=== PATIENT | male | born 1950 | race Caucasian/White ===

== ENCOUNTER 2016-12-19 10:57 | Inpatient (IN) ==
[2016-12-19] MEDS ORDERED: Ipratropium/Albuterol Neb 3 ML IH ONE (11:05)
--- NOTE | 2016-12-19 11:08 | Emergency Department Note ---
Disposition Clinical Impression: Bronchospasm Pneumonia Qualifiers: Pneumonia type: due to unspecified organism Laterality: bilateral Lung location : lower lobe of lung Qualified Code(s): J18.9 - Pneumonia, unspecified organism Disposition: Admitted As Inpatient Condition: Fair Referrals: Marcus Westfall MD [Primary Care Provider] - Time of Disposition: 12:09 SOB HPI - General Chief Complaint: ED Shortness of Breath/Dyspnea Stated Complaint: VIELKA Time Seen by Provider: 12/19/16 11:04 Source: patient, family Mode of arrival: ambulatory Limitations: no limitations Nursing Notes Reviewed: Yes Vital Signs Reviewed: Yes - History of Present Illness 66-year-old comes in with increasing shortness of breath difficulty breathing stating that he thinks he has pneumonia. He's been coughing. He was a smoker in the past. Patient has not been diagnosed with COPD. Patient has a productive cough and it hurts when he coughs. Symptoms began about 2 weeks ago and have gotten progressively worse. Pt Subjective Complaint: shortness of breath, cough Onset (ago): week(s) (2) Context: recent illness Severity: moderate Consistency/Duration: constant Improves with: nothing Worsens with: exertion Associated symptoms: Reports: chest pain (With cough), cough, wheezing, sputum production - Related Data Home Medications Medication Instructions Recorded Confirmed GlipiZIDE [Glipizide Xl] 5 mg PO BID 04/23/16 04/23/16 Lisinopril [Zestril] 5 mg PO DAILY 04/23/16 04/23/16 Metformin HCl [Glucophage] 1,000 mg PO BID 04/23/16 04/23/16 Pravastatin Sodium 10 mg PO DAILY 04/23/16 04/23/16 Allergies Allergy/AdvReac Type Severity Reaction Status Date / Time Sulfa (Sulfonamide AdvReac Rash Verified 04/23/16 08:49 Antibiotics) All systems ED: reviewed and negative except as stated. Constitutional: Denies: fever, chills, weakness, weight change Eyes: Denies: eye pain, eye discharge, vision change ENT ED: Denies: ear pain, throat pain, dental pain, hearing loss, epistaxis, congestion, dysphagia Cardiovascular: Reports: chest pain (Cough). Denies: palpitations, dyspnea on exertion, edema, syncope Respiratory: Reports: cough, dyspnea, wheezes. Denies: hemoptysis, stridor Gastrointestinal: Denies: abdominal pain, nausea, vomiting, diarrhea, constipation, hematemesis, melena, hematochezia Genitourinary: Denies: urgency, dysuria, frequency, hematuria Musculoskeletal: Denies: back pain, neck pain, arthralgia, myalgia Integumentary: Denies: rash, abrasion, lesions Neurological: Denies: headache, weakness, numbness, paresthesias, confusion, abnormal gait, vertigo Psychiatric: Denies: anxiety, depression, suicidal thoughts, homicidal thoughts , auditory hallucinations, visual hallucinations Endocrine: Denies: fatigue Hematological/Lymphatic: Denies: easy bleeding, easy bruising Allergic/Immunologic: Denies: facial swelling, urticaria Past Medical History - Past Medical History Medical history: Reports: arthritis, diabetes, GERD, hyperlipidemia, hypertension Psychiatric history: Reports: no psych history - Social History Smoking Status: Former smoker Alcohol use: Reports: none Drug use: Reports: none Physical Exam - General Limitations: no limitations General appearance: alert, in distress - Head Head exam: atraumatic, normocephalic, normal inspection - Eye Eye exam: Present: normal appearance, PERRL, EOMI - ENT ENT exam: normal exam, normal oropharynx, mucous membranes moist - Neck Neck exam: Present: normal inspection, full ROM, trachea midline - Chest Chest inspection: Present: normal inspection, symmetric chest wall rise - Respiratory Respiratory exam: Present: wheezes, prolonged expiratory phase - Cardiovascular Cardiovascular exam: Present: regular rate, normal rhythm, normal heart sounds - Abdominal Exam Abdominal exam: Present: soft, Non-Tender. Absent: tenderness, distention, guarding, rebound, rigidity - Extremities Exam Extremities exam: Present: normal inspection, full ROM. Absent: tenderness, pedal edema - Expanded Lower Extremity Exam Neurovascular/Tendon exam: Absent: motor deficit, sensory deficit, tendon deficit Gait: observed and normal - Back Exam Back exam: Present: normal inspection, full ROM. Absent: tenderness - Neurological Exam Neurological exam: Present: alert, oriented X3 - Psychiatric Psychiatric exam: Present: normal affect, normal mood - Skin Skin exam: Present: warm, dry, intact, normal color Course - Reevaluation(s) Reevaluation #1: 66-year-old comes in with increasing shortness of breath and cough concern for pneumonia. Chest x-ray does show bilateral lower lobe infiltrates which are consistent with a pneumonia based on his clinical presentation. Patient will be admitted for IV antibiotics. Time: 12:09 - Consultations Consultation #1: Discussed with Nevin Cervantes SILO OPERATOR who accepts the patient for admission. Time: 12:17 Vital Signs Temperature 97.9 F 12/19/16 10:59 Pulse Rate 81 12/19/16 10:59 Respiratory Rate 26 12/19/16 10:59 Blood Pressure 182/82 12/19/16 10:59 O2 Sat by Pulse Oximetry 92 12/19/16 10:59 Temperature 97.9 F 12/19/16 10:59 Pulse Rate 78 12/19/16 11:05 Respiratory Rate 18 12/19/16 11:43 Blood Pressure 158/94 12/19/16 11:05 O2 Sat by Pulse Oximetry 99 12/19/16 11:43 Oxygen Delivery Oxygen Delivery Nasal Cannula Shortness of Breath/Dyspnea - Lab Data Lab results reviewed: Yes I reviewed the patient's lab results. Result diagrams: 12/19/16 11:27 12/19/16 11:27 Lab Results 12/19/16 12/19/16 12/19/16 Range/Units 11:27 11:27 11:27 WBC 10.9 (4.3-11.1) K/mcL RBC 3.60 L (4.19-5.50) M/mcL Hgb 11.5 L (12.9-16.9) g/dL Hct 34.4 L (37.5-50.1) % MCV 95.6 (83.0-100.0) fL MCH 31.9 (28.0-33.3) pg MCHC 33.4 (31.6-35.5) g/dL RDW 14.0 (11.5-14.5) % Plt Count 324 (140-400) K/mcL MPV 10.3 (9.4-12.4) fL Immature Gran % 0.6 (0-4) % Seg Neutrophils % 78.4 % Lymphocytes % 12.4 % Monocytes % 7.6 % Eosinophils % 0.8 % Basophils % 0.2 % Neutrophils # 8.6 (1.6-8.9) K/mcL Lymphocytes # 1.4 (0.6-4.6) K/mcL Monocytes # 0.8 (0.0-1.3) K/mcL Eosinophils # 0.1 (0.0-0.6) K/mcL Basophils # 0.0 (0.0-0.2) K/mcL Sodium 141 (136-145) mEq/L Potassium 3.9 (3.5-4.5) mEq/L Chloride 105 (98-109) mEq/L Carbon Dioxide 26 (19-29) mEq/L BUN 14 (8-26) mg/dL Creatinine 0.90 (0.72-1.25) mg/dL Est GFR ( Amer) > 60 (> 60) Est GFR (Non-Af Amer) > 60 (> 60) BUN/Creatinine Ratio 16 (6-26) Glucose 218 H (70-99) mg/dL Calculated Osmolality 299 (280-300) Lactic Acid 1.3 (0.5-2.2) mmol/L Calcium 9.5 (8.6-10.8) mg/dL Troponin I (0-0.03) ng/mL B-Natriuretic Peptide (0-100) pg/mL 12/19/16 12/19/16 Range/Units 11:27 11:27 WBC (4.3-11.1) K/mcL RBC (4.19-5.50) M/mcL Hgb (12.9-16.9) g/dL Hct (37.5-50.1) % MCV (83.0-100.0) fL MCH (28.0-33.3) pg MCHC (31.6-35.5) g/dL RDW (11.5-14.5) % Plt Count (140-400) K/mcL MPV (9.4-12.4) fL Immature Gran % (0-4) % Seg Neutrophils % % Lymphocytes % % Monocytes % % Eosinophils % % Basophils % % Neutrophils # (1.6-8.9) K/mcL Lymphocytes # (0.6-4.6) K/mcL Monocytes # (0.0-1.3) K/mcL Eosinophils # (0.0-0.6) K/mcL Basophils # (0.0-0.2) K/mcL Sodium (136-145) mEq/L Potassium (3.5-4.5) mEq/L Chloride (98-109) mEq/L Carbon Dioxide (19-29) mEq/L BUN (8-26) mg/dL Creatinine (0.72-1.25) mg/dL Est GFR ( Amer) (> 60) Est GFR (Non-Af Amer) (> 60) BUN/Creatinine Ratio (6-26) Glucose (70-99) mg/dL Calculated Osmolality (280-300) Lactic Acid (0.5-2.2) mmol/L Calcium (8.6-10.8) mg/dL Troponin I 0.02 (0-0.03) ng/mL B-Natriuretic Peptide 131 H (0-100) pg/mL - Radiology Data Radiology results reviewed: Yes I reviewed the patient's radiology results. Chest X-Ray 12/19/16 11:05 IMPRESSION: 1. Bilateral lower lobe airspace disease either due to atelectasis or developing pneumonia. Recommend chest radiograph in 8 weeks to confirm resolution. D/ / Michael Chowdhury MD / Michael Chowdhury MD Interpreting Provider: Michael Chowdhury MD - EKG Data EKG attestation: Yes I reviewed and interpreted this EKG. EKG shows normal: Reports: sinus rhythm Rate: Reports: normal Rhythm: Reports: NSR Interpretation: Reports: no acute changes
[2016-12-19 11:39] LABS: Basophils % 0.2 %; Eosinophils # 0.1 K/mcL (0.0-0.6); Eosinophils % 0.8 %; Hematocrit 34.4 % (37.5-50.1); Hemoglobin 11.5 g/dL (12.9-16.9); Immature Granulocytes % 0.6 % (0-4); Lymphocytes # 1.4 K/mcL (0.6-4.6); Lymphocytes % 12.4 %; Mean Corpuscular HGB Conc 33.4 g/dL (31.6-35.5); Mean Corpuscular Hemoglobin 31.9 pg (28.0-33.3); Mean Corpuscular Volume 95.6 fL (83.0-100.0); Mean Platelet Volume 10.3 fL (9.4-12.4); Monocytes # 0.8 K/mcL (0.0-1.3); Monocytes % 7.6 %; Neutrophils # 8.6 K/mcL (1.6-8.9); Platelet Count 324 K/mcL (140-400); Segmented Neutrophils % 78.4 %
[2016-12-19] MEDS ORDERED: Azithromycin 500 MG in D5% in Water 250 ML IVPB ONE (11:50)
[2016-12-19 11:52] LABS: BUN/Creatinine Ratio 16 (6-26); Blood Urea Nitrogen 14 mg/dL (8-26); Calcium 9.5 mg/dL (8.6-10.8); Carbon Dioxide 26 mEq/L (19-29); Chloride 105 mEq/L (98-109); Glucose 218 mg/dL (70-99); Osmolality,Calculated 299 (280-300); Potassium 3.9 mEq/L (3.5-4.5); Sodium 141 mEq/L (136-145); eGFR For African Americans > 60 (> 60); eGFR For Non-African Americans > 60 (> 60)
[2016-12-19] MEDS ORDERED: Naloxone 0.4 MG/ML INJ IVP PRN (12:37)
[2016-12-19] MEDS ORDERED: Acetaminophen 325 MG TABLET PO PRN (12:37)
[2016-12-19] MEDS ORDERED: Albuterol 2.5 MG/3 ML NEBULIZER IH PRN (12:43)
[2016-12-19] MEDS ORDERED: Dextrose Gel 15 GM PO PRN ×2 (13:01)
[2016-12-19] MEDS ORDERED: *HR* Dextrose 50 % in Water (Syg) 50 ML SYRINGE IVP PRN (13:01)
[2016-12-19] MEDS ORDERED: D5% in Water 1,000 ML IVC PRN (13:01)
--- NOTE | 2016-12-19 13:12 | Internal Med History&Physical ---
Date of Encounter: 12/19/16 Time of Encounter: 13:05 Assessment and Plan (1) Pneumonia Current visit: Yes Status: Acute 1 she has been experiencing increasing shortness of breath cough or sputum production no leukocytosis afebrile chest x-ray indicative of pneumonia. We will treat for community-acquired pneumonia Rocephin and Zithromax 2 we will obtain sputum cultures, blood cultures obtained 3 breathing treatments 4 oxygen as needed to maintain SPO2 greater than 92% Qualifiers: Pneumonia type: due to unspecified organism Laterality: bilateral Lung location: lower lobe of lung Qualified Code(s): J18.9 - Pneumonia, unspecified organism (2) Hypertension Current visit: Yes Status: Acute 1 we will continue with lisinopril goals to maintain systolic less than 140 2 low sodium diet Qualifiers: Hypertension type: essential hypertension Qualified Code(s): I10 - Essential (primary) hypertension (3) Diabetes Current visit: Yes Status: Acute 1 Accu-Cheks before meals and at bedtime with signs, insulin we will hold metformin and glyburide for now 2 diabetic diet Qualifiers: Diabetes mellitus type: type 2 Diabetes mellitus complication status: without complication Diabetes mellitus halfway insulin use: 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 Felipe is a 66 year old male past medical history of hypertension hyperlipidemia diabetes rheumatoid arthritis. According to the patient he has been experiencing increasing shortness of breath for the past 3 weeks for the past 2-3 days he has had a productive cough with yellow sputum he denies any fevers chills nausea vomiting diarrhea. He does admit to orthopnea, as well as chest pain while he coughs. He states he has had pneumonia in the past and he felt the symptoms were very similar he presented to the ER for evaluation. According to ER records lab work was unremarkable no leukocytosis lactate was 1.3 chest x-ray revealed bilateral lower lobe airspace disease possibly due to atelectasis or developing pneumonia. Patient was afebrile vital signs were stable on presentation. Patient was given antibiotics and breathing treatments. He is on oxygen 2 L nasal cannula has been A for further workup and evaluation. Bladimir patient does not appear to be in any respiratory distress however he does display conversational dyspnea. Oxygen saturation does drop to 9495% during conversation on 2 L nasal cannula. He does have a audible wheeze lung sounds with scattered rhonchi moist cough. Heart sounds are regular S1-S2 with no rubs clicks gallops murmurs noted abdomen soft nontender no pedal edema. He is hemodynamically stable at this time I reviewed this case with who agree with plan Past Med Surg Social Fam HX - Past Medical History Medical history: arthritis, diabetes, GERD, hyperlipidemia, hypertension Psychiatric history: no psych history - Social History Smoking Status: Former smoker Alcohol use: none Drug use: none - Family History Father Living Status: Cause of : Cancer Mother Living Status: Still Living Hx Family Cardiac Disorders: Yes (Hypertension) Internal Medicine - H&P: Meds GlipiZIDE [Glipizide Xl] 5 mg PO BID 04/23/16 [History] Lisinopril [Zestril] 5 mg PO DAILY 04/23/16 [History] Metformin HCl [Glucophage] 1,000 mg PO BID 04/23/16 [History] Pravastatin Sodium 10 mg PO DAILY 04/23/16 [History] Folic Acid 1 mg PO DAILY 12/19/16 [History] Methotrexate Sodium/PF [Methotrexate 50 mg/2 ml Vial] 50 mg SQ FR 12/19/16 [ History] Allergies Sulfa (Sulfonamide Antibiotics) Allergy (Verified 12/19/16 12:28) Rash All Systems PM: A 10-system review of systems was performed and is negative for pertinent findings except as documented above in the HPI. - Constitutional Constitutional: no chills, no fever(s), no night sweats - EENT Eyes: no change in vision, no discharge, no pain, no photophobia Ears: no ear discharge, no ear pain, no tinnitus Nose, mouth and throat: no dysphagia, no nasal discharge, no neck pain, no sore throat - Cardiovascular Cardiovascular ROS IM: orthopnea, no chest pain, no diaphoresis, no dyspnea, no lightheadedness, no palpitations, no syncope - Respiratory Respiratory: cough, dyspnea on exertion, excessive phlegm production, change in phlegm color, pain with cough, no dyspnea, no wheezing - Gastrointestinal Gastrointestinal: no abdominal pain, no diarrhea, no hematemesis, no hematochezia, no melena, no nausea, no vomiting - Musculoskeletal Musculoskeletal ROS IM: no numbness, no tingling - Integumentary Integumentary IM: no rash, no unusual bruising - Neurological Neurological ROS: no confusion, no convulsions, no focal weakness, no numbness, no tingling, no tremor(s) - Hematologic/Lymphatic Hematologic/Lymphatic: no easy bruising - Constitutional Vitals: Temp Pulse Resp BP Pulse Ox 97.9 F 80 22 147/78 92 12/19/16 10:59 12/19/16 12:33 12/19/16 12:33 12/19/16 12:33 12/19/16 12:33 General appearance: Present: A&O X 3 - Head Head exam: Present: atraumatic, normocephalic - Eye Eye exam: Present: PERRL, conjuntiva pink, sclera anicteric Pupils: Present: PERRL - Neck Neck exam general surgery: Present: supple, trachea midline. Absent: lymphadenopathy - Respiratory Respiratory exam: Present: rhonchi, wheezes. Absent: accessory muscle use, rales - Cardiovascular Cardiovascular exam: Present: RRR, +S1, +S2. Absent: diastolic murmur, gallop, rubs, systolic murmur - GI/Abdominal GI/Abdominal exam: Present: normal bowel sounds, soft, no peritoneal signs. Absent: distended, tenderness - Extremities Exam Extremities exam: Present: warm, radial pulses palpable and symetrical. Absent : calf tenderness, cyanotic, pedal edema - Neurological Exam Neurological exam: Present: CN II-XII intact, oriented X3, no focal deficits. Absent: pronater drift, facial droop, speech deficit - Skin Skin exam: Present: dry, intact Internal Med - H&P Results - Labs CBC & Chem 7: 12/19/16 11:27 12/19/16 11:27 - EKG Data EKG shows normal: sinus rhythm - EKG Data Prior EKG available for review: yes When compared to previous EKG: there is no significant change - Diagnostic Studies Other Images Additional comments: Chest X-Ray 12/19/16 11:05 IMPRESSION: 1. Bilateral lower lobe airspace disease either due to atelectasis or developing pneumonia. Recommend chest radiograph in 8 weeks to confirm resolution. D/ / Michael Chowdhury MD / Michael Chowdhury MD Interpreting Provider: Michael Chowdhury MD
[2016-12-19] MEDS ORDERED: Insulin LISPRO 300 UNITS/3 ML VIAL SQ ONE (14:02)
[2016-12-19] MEDS: Insulin LISPRO 300 UNITS/3 ML VIAL SQ SCH ×2 (14:05→20:44)
[2016-12-19 16:50] LABS: ABG HCO3 29.9 mEQ/L (21-27); ABG Oxygen Saturation 94 % (95-98); ABG PCO2 44 mmHg (35-45); ABG PH 7.44 pH Units (7.32-7.45); ABG PO2 69 mmHg (85-104); ABG TCO2 31.3 mEq/L (20-26)
[2016-12-19 16:51] LABS: Blood Gas FiO2 28 %; Blood Gas Liter Flow 2 L/MIN
[2016-12-19] MEDS: Ipratropium/Albuterol Neb 3 ML IH SCH ×2 (18:30→22:48)
[2016-12-20] MEDS: Ipratropium/Albuterol Neb 3 ML IH SCH ×4 (04:32→23:45)
[2016-12-20 04:58] LABS: Basophils % 0.1 %; Eosinophils # 0.1 K/mcL (0.0-0.6); Hematocrit 32.1 % (37.5-50.1); Hemoglobin 10.4 g/dL (12.9-16.9); Immature Granulocytes % 0.5 % (0-4); Lymphocytes # 2.3 K/mcL (0.6-4.6); Lymphocytes % 18.9 %; Mean Corpuscular HGB Conc 32.4 g/dL (31.6-35.5); Mean Corpuscular Hemoglobin 31.1 pg (28.0-33.3); Mean Corpuscular Volume 96.1 fL (83.0-100.0); Mean Platelet Volume 10.1 fL (9.4-12.4); Monocytes # 0.6 K/mcL (0.0-1.3); Monocytes % 4.7 %; Platelet Count 320 K/mcL (140-400); Red Blood Count 3.34 M/mcL (4.19-5.50); Red Cell Distribution Width 13.9 % (11.5-14.5); Segmented Neutrophils % 74.8 %
[2016-12-20 05:14] LABS: BUN/Creatinine Ratio 15 (6-26); Blood Urea Nitrogen 14 mg/dL (8-26); Carbon Dioxide 26 mEq/L (19-29); Chloride 103 mEq/L (98-109); Glucose 197 mg/dL (70-99); Osmolality,Calculated 290 (280-300); Potassium 4.4 mEq/L (3.5-4.5); Sodium 137 mEq/L (136-145); eGFR For African Americans > 60 (> 60); eGFR For Non-African Americans > 60 (> 60)
[2016-12-20] MEDS: *HR* Enoxaparin 40 MG/0.4 ML SYRINGE SQ SCH (08:40)
[2016-12-20] MEDS: Insulin LISPRO 300 UNITS/3 ML VIAL SQ SCH ×4 (08:40→21:37)
[2016-12-20] MEDS: Azithromycin 500 MG in D5% in Water 250 ML IVPB SCH (09:16)
[2016-12-20] MEDS ORDERED: Ipratropium/Albuterol Neb 3 ML IH PRN (12:32)
--- NOTE | 2016-12-20 12:32 | Internal Med Progress Note ---
Date of Encounter: 12/20/16 Time of Encounter: 12:29 - Subjective Interval history: Patient seen and examined with family present at bedside. Patient reports of feeling better but still noted to have conversational dyspnea. As per daughter, patient has been having shortness of breath for quite some time. Patient reports of being a heavy former smoker, used to smoke 2ppd x 35+years. Patient may have underlying COPD given his smoking history. Will start systemic steroids at this time. Assessment and Plan (1) Acute respiratory failure Current visit: Yes Status: Acute Likely secondary to CAP and COPD exacerbation Patient likely has undiagnosed COPD will continue IV abx start Solumedrol 40mg IV q12h bronchodilator support f/u blood and sputum cultures O2 supplementation as needed (2) Hypertension Current visit: Yes Status: Acute BP within acceptable range continue home meds Qualifiers: Hypertension type: essential hypertension Qualified Code(s): I10 - Essential (primary) hypertension (3) Diabetes Current visit: Yes Status: Acute FS within acceptable range continue ss insulin algorithm monitor FS and BG Qualifiers: Diabetes mellitus type: type 2 Diabetes mellitus complication status: without complication 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 insulin use: without parts counterman use Qualified Code(s): E11.9 - Type 2 diabetes mellitus without complications (4) DVT prophylaxis Current visit: Yes Status: Acute Lovenox SQ - Constitutional Vitals: Temp Pulse Resp BP Pulse Ox 97 F L 86 18 155/72 91 12/20/16 11:19 12/20/16 11:19 12/20/16 11:19 12/20/16 11:19 12/20/16 11:19 General appearance: Present: A&O X 3, pleasant, no acute distress, obese - Head Head exam: Present: atraumatic, normocephalic - Eye Eye exam: Present: normal appearance, conjuntiva pink, sclera anicteric - Respiratory Respiratory exam: Absent: respiratory distress Additional comments: coarse breath sounds bilaterally - Cardiovascular Cardiovascular exam: Present: RRR, +S1, +S2 - GI/Abdominal GI/Abdominal exam: Present: normal bowel sounds, soft, no peritoneal signs. Absent: distended, tenderness - Extremities Exam Extremities exam: Present: warm, radial pulses palpable and symetrical. Absent : calf tenderness, cyanotic, pedal edema - Neurological Exam Neurological exam: Present: alert, oriented X3, no focal deficits - Psychiatric Psychiatric exam: Present: normal affect, normal mood Internal Medicine: Result - Labs CBC & Chem 7: 12/20/16 04:46 12/20/16 04:46 Labs: Short CBC 12/20/16 Range/Units 04:46 WBC 12.0 H (4.3-11.1) K/mcL Hgb 10.4 L (12.9-16.9) g/dL Hct 32.1 L (37.5-50.1) % Plt Count 320 (140-400) K/mcL Neutrophils # 9.0 H (1.6-8.9) K/mcL BMP 12/20/16 04:46 Sodium 137 Potassium 4.4 Chloride 103 Carbon Dioxide 26 BUN 14 Creatinine 0.92 Glucose 197 H Calcium 9.0 Cardiac Enzymes 12/19/16 12/19/16 Range/Units 17:44 23:07 Troponin I 0.02 0.01 (0-0.03) ng/mL - ABG Interpretation ABG results: ABG ABG pH 7.44 pH Units (7.32-7.45) 12/19/16 16:30 ABG pCO2 44 mmHg (35-45) 12/19/16 16:30 ABG pO2 69 mmHg (85-104) L 12/19/16 16:30 ABG O2 Saturation 94 % (95-98) L 12/19/16 16:30 Consult Discharge Plan - Plan
[2016-12-20] MEDS: MethylPREDNISolone 40 MG/ML VIAL IVP SCH ×2 (14:08→18:13)
[2016-12-21] MEDS: Ipratropium/Albuterol Neb 3 ML IH SCH ×4 (04:41→23:03)
[2016-12-21 06:22] LABS: Basophils % 0.1 %; Hematocrit 33.1 % (37.5-50.1); Hemoglobin 10.9 g/dL (12.9-16.9); Immature Granulocytes % 0.8 % (0-4); Lymphocytes # 1.3 K/mcL (0.6-4.6); Lymphocytes % 10.7 %; Mean Corpuscular HGB Conc 32.9 g/dL (31.6-35.5); Mean Corpuscular Hemoglobin 31.1 pg (28.0-33.3); Mean Corpuscular Volume 94.6 fL (83.0-100.0); Mean Platelet Volume 10.5 fL (9.4-12.4); Monocytes # 0.6 K/mcL (0.0-1.3); Monocytes % 4.8 %; Neutrophils # 10.3 K/mcL (1.6-8.9); Platelet Count 353 K/mcL (140-400); Red Cell Distribution Width 13.5 % (11.5-14.5); Segmented Neutrophils % 83.6 %
[2016-12-21 06:32] LABS: BUN/Creatinine Ratio 18 (6-26); Blood Urea Nitrogen 16 mg/dL (8-26); Calcium 9.3 mg/dL (8.6-10.8); Carbon Dioxide 26 mEq/L (19-29); Chloride 105 mEq/L (98-109); Glucose 270 mg/dL (70-99); Magnesium 2.1 mg/dL (1.6-2.6); Osmolality,Calculated 299 (280-300); Phosphorous 3.4 mg/dL (2.3-4.7); Sodium 139 mEq/L (136-145); eGFR For African Americans > 60 (> 60); eGFR For Non-African Americans > 60 (> 60)
[2016-12-21 06:33] LABS: Potassium 4.6 mEq/L (3.5-4.5)
[2016-12-21] MEDS: *HR* Enoxaparin 40 MG/0.4 ML SYRINGE SQ SCH (06:34)
[2016-12-21] MEDS: MethylPREDNISolone 40 MG/ML VIAL IVP SCH ×2 (06:34→16:55)
--- NOTE | 2016-12-21 08:08 | Electrocardiograph Report ---
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
[2016-12-21] MEDS: Insulin LISPRO 300 UNITS/3 ML VIAL SQ SCH ×3 (09:49→16:55)
[2016-12-21] MEDS: Azithromycin 500 MG in D5% in Water 250 ML IVPB SCH (09:49)
--- NOTE | 2016-12-21 11:51 | Internal Med Progress Note ---
Date of Encounter: 12/21/16 Time of Encounter: 11:47 - Subjective Interval history: Patient seen and examined. Reports of feeling better compared to previous day. Noted to have significantly improved respiratory status. Pt does not have conversational dyspnea. Will continue IV steroids for one more day and start Prednisone in am. Assessment and Plan (1) Acute respiratory failure Current visit: Yes Status: Acute Likely secondary to CAP and COPD exacerbation Patient likely has undiagnosed COPD will continue IV abx continue Solumedrol 40mg IV q12h for one more day and start Prednisone in am bronchodilator support f/u blood and sputum cultures O2 supplementation as needed (2) Hypertension Current visit: Yes Status: Acute BP within acceptable range continue home meds Qualifiers: Hypertension type: essential hypertension Qualified Code(s): I10 - Essential (primary) hypertension (3) Diabetes Current visit: Yes Status: Acute noted to be hyperglycemic, likely secondary to steroid therapy will start Levemir 10units SQ qdaily continue ss insulin algorithm monitor FS and BG adjust insulin therapy as needed Qualifiers: Diabetes mellitus type: type 2 Diabetes mellitus complication status: without complication Diabetes mellitus intermediate insulin use: without intermediate use Qualified Code(s): E11.9 - Type 2 diabetes mellitus without complications (4) DVT prophylaxis Current visit: Yes Status: Acute Lovenox SQ - Constitutional Vitals: Temp Pulse Resp BP Pulse Ox 97.6 F 84 16 139/77 93 12/21/16 10:41 12/21/16 10:41 12/21/16 10:41 12/21/16 10:47 12/21/16 10:47 General appearance: Present: A&O X 3, pleasant, no acute distress, obese - Head Head exam: Present: atraumatic, normocephalic - Eye Eye exam: Present: conjuntiva pink, sclera anicteric - Respiratory Respiratory exam: Absent: respiratory distress, wheezes Additional comments: coarse breath sounds bilaterally - Cardiovascular Cardiovascular exam: Present: RRR, +S1, +S2. Absent: diastolic murmur, gallop, rubs, systolic murmur - GI/Abdominal GI/Abdominal exam: Present: normal bowel sounds, soft, no peritoneal signs. Absent: distended, tenderness - Extremities Exam Extremities exam: Present: warm, radial pulses palpable and symetrical. Absent : calf tenderness, pedal edema - Neurological Exam Neurological exam: Present: alert, oriented X3 - Psychiatric Psychiatric exam: Present: normal affect, normal mood Internal Medicine: Result - Labs CBC & Chem 7: 12/21/16 06:00 12/21/16 06:00 Labs: Short CBC 12/21/16 Range/Units 06:00 WBC 12.3 H (4.3-11.1) K/mcL Hgb 10.9 L (12.9-16.9) g/dL Hct 33.1 L (37.5-50.1) % Plt Count 353 (140-400) K/mcL Neutrophils # 10.3 H (1.6-8.9) K/mcL BMP 12/21/16 06:00 Sodium 139 Potassium 4.6 H Chloride 105 Carbon Dioxide 26 BUN 16 Creatinine 0.88 Glucose 270 H Calcium 9.3 - ABG Interpretation ABG results: ABG ABG pH 7.44 pH Units (7.32-7.45) 12/19/16 16:30 ABG pCO2 44 mmHg (35-45) 12/19/16 16:30 ABG pO2 69 mmHg (85-104) L 12/19/16 16:30 ABG O2 Saturation 94 % (95-98) L 12/19/16 16:30 Consult Discharge Plan - Plan Referrals: Marcus Westfall MD [Primary Care Provider] - 12/28/16 9:45 am (Please follow up as schedule...)
[2016-12-21] MEDS: Insulin DETEMIR 100 UNIT/ML X5UNITS SQ SCH (13:41)
[2016-12-21] MEDS: Sennosides/Docusate Sodium TABLET PO SCH ×2 (13:42→21:06)
[2016-12-21] MEDS ORDERED: Insulin LISPRO 300 UNITS/3 ML VIAL SQ SCH (21:00)
[2016-12-22 03:50] LABS: Basophils % 0.1 %; Hematocrit 31.6 % (37.5-50.1); Hemoglobin 10.4 g/dL (12.9-16.9); Immature Granulocytes % 1.4 % (0-4); Lymphocytes % 13.8 %; Mean Corpuscular HGB Conc 32.9 g/dL (31.6-35.5); Mean Platelet Volume 10.6 fL (9.4-12.4); Monocytes # 0.8 K/mcL (0.0-1.3); Monocytes % 5.1 %; Neutrophils # 11.8 K/mcL (1.6-8.9); Platelet Count 355 K/mcL (140-400); Red Blood Count 3.36 M/mcL (4.19-5.50); Red Cell Distribution Width 13.5 % (11.5-14.5); Segmented Neutrophils % 79.6 %
[2016-12-22 04:02] LABS: BUN/Creatinine Ratio 22 (6-26); Blood Urea Nitrogen 19 mg/dL (8-26); Calcium 9.2 mg/dL (8.6-10.8); Carbon Dioxide 27 mEq/L (19-29); Chloride 104 mEq/L (98-109); Glucose 226 mg/dL (70-99); Magnesium 1.9 mg/dL (1.6-2.6); Osmolality,Calculated 297 (280-300); Phosphorous 3.8 mg/dL (2.3-4.7); Potassium 4.3 mEq/L (3.5-4.5); Sodium 139 mEq/L (136-145); eGFR For African Americans > 60 (> 60); eGFR For Non-African Americans > 60 (> 60)
[2016-12-22] MEDS: Ipratropium/Albuterol Neb 3 ML IH SCH ×2 (05:16→10:48)
[2016-12-22] MEDS: *HR* Enoxaparin 40 MG/0.4 ML SYRINGE SQ SCH (08:27)
[2016-12-22] MEDS: Insulin LISPRO 300 UNITS/3 ML VIAL SQ SCH ×2 (08:30→13:37)
[2016-12-22] MEDS: Insulin DETEMIR 100 UNIT/ML X5UNITS SQ SCH (08:36)
[2016-12-22] MEDS: Azithromycin 500 MG in D5% in Water 250 ML IVPB SCH (08:36)
[2016-12-22] MEDS ORDERED: predniSONE 20 MG TABLET PO SCH (09:00)
--- NOTE | 2016-12-22 11:45 | Discharge Summary ---
Date of Encounter: 12/22/16 Time of Encounter: 11:41 - Discharge Diagnosis (1) Pneumonia Priority: Primary Status: Acute Qualifiers: Pneumonia type: due to unspecified organism Laterality: bilateral Lung location: lower lobe of lung Qualified Code(s): J18.9 - Pneumonia, unspecified organism (2) COPD (chronic obstructive pulmonary disease) Priority: Secondary Status: Suspected Qualifiers: COPD type: chronic bronchitis Chronic bronchitis type: mucopurulent Qualified Code(s): J41.1 - Mucopurulent chronic bronchitis (3) Bronchospasm Priority: Secondary Status: Acute (4) Hypertension Priority: Secondary Status: Acute Qualifiers: Hypertension type: essential hypertension Qualified Code(s): I10 - Essential (primary) hypertension (5) Diabetes Priority: Secondary Status: Chronic Qualifiers: Diabetes mellitus type: type 2 Diabetes mellitus complication status: without complication Diabetes mellitus long-term insulin use: without intermodal customer service use Qualified Code(s): E11.9 - Type 2 diabetes mellitus without complications - Discharge Medications Prescriptions: Albuterol Sulfate [Albuterol Inhaler] 2 puff IH Q4HR PRN #1 puff PRN Reason: Wheezing Ciprofloxacin [Cipro] 500 mg PO BID #14 tablet predniSONE [PredniSONE] 10 mg PO DAILY 8 Days Home Medications: GlipiZIDE [Glipizide Xl] 5 mg PO BID 04/23/16 [History] Lisinopril [Zestril] 5 mg PO DAILY 04/23/16 [History] Metformin HCl [Glucophage] 1,000 mg PO BID 04/23/16 [History] Pravastatin Sodium 10 mg PO DAILY 04/23/16 [History] Folic Acid 1 mg PO DAILY 12/19/16 [History] Methotrexate Sodium/PF [Methotrexate 50 mg/2 ml Vial] 50 mg SQ FR 12/19/16 [ History] Albuterol Sulfate [Albuterol Inhaler] 2 puff IH Q4HR PRN #1 puff 12/22/16 [Rx] Ciprofloxacin [Cipro] 500 mg PO BID #14 tablet 12/22/16 [Rx] predniSONE [PredniSONE] 10 mg PO DAILY 8 Days 12/22/16 [Rx] Allergies/Adverse Reactions: Allergies Sulfa (Sulfonamide Antibiotics) Allergy (Verified 12/19/16 12:28) Rash Date of admission: 12/19/16 15:17 Primary care physician: Marcus Westfall MD Discharging clinician: Dominga Talavera Anticipated date of discharge: 12/22/16 - Patient Status Disposition: Home, Self-Care Condition: Fair Functional capacity at discharge: independent ambulation Overall status at discharge: patient is progressing back to baseline - Discharge Instructions Instructions: Pneumonia (DC), Chronic Hypertension (DC) Follow Up With: Marcus Westfall MD [Primary Care Provider] - 12/28/16 9:45 am (Please follow up as schedule...) Forms: ED Satisfaction Letter - Diet and Activity Activity: increase activity as tolerated Diet: diabetic diet, low fat, low cholesterol, low salt diet Hospital course: Mr. Felipe is a 66 year old male patient with a history of diabetes mellitus type 2, hyperlipidemia, rheumatoid arthritis who presented to the ER with complaints of shortness of breath and wheezing lasting for about 3 weeks prior to presentation. He was started on treatment for acute respiratory failure and pneumonia with O2 supplementation and IV antibiotics. On examination, he was also bronchospastic with wheezing. He was started on bronchodilators for this. With these treatment measures along with IV steroids, his symptoms improved. He is now feeling much better. He is stable to be discharged home at this time on oral antibiotics. He does appear to be having underlying chronic bronchitis/ COPD as he has a history of prior cigarette smoking. He has not been formally evaluated for this and will be referred to pulmonology for further evaluation. For now, he is requiring home oxygen at 3 L/m and this will be provided to him at the time of discharge. He will also complete a short course of antibiotics for his pneumonia and a steroid taper. - Time Spent with Patient Total time spent providing and/or coordinating discharge services: Greater than 30 minutes (34 min) - Constitutional Vitals: Temp Pulse Resp BP Pulse Ox 97.6 F 78 16 149/81 96 12/22/16 07:09 12/22/16 07:09 12/22/16 10:50 12/22/16 07:09 12/22/16 10:55 General appearance: Present: A&O X 3, pleasant, no acute distress, obese - Neck Neck exam general surgery: Present: supple, trachea midline. Absent: lymphadenopathy - Respiratory Respiratory exam: Present: prolonged expiratory phase, rhonchi, wheezes. Absent : accessory muscle use, rales - Cardiovascular Cardiovascular exam: Present: RRR, +S1, +S2. Absent: diastolic murmur, gallop, rubs, systolic murmur - GI/Abdominal GI/Abdominal exam: Present: normal bowel sounds, soft, no peritoneal signs. Absent: distended, tenderness - Extremities Exam Extremities exam: Present: warm, radial pulses palpable and symetrical. Absent : calf tenderness, cyanotic, pedal edema - Attending Attestation This document has been at least partially created by [employer] recognition technology by Dr. Talavera. Errors in grammar, wording or other phrases may exist. If errors are found after the documentation is signed, they will be addressed individually in the addendum section of this document when appropriate.
[2016-12-22 12:18] VITALS: BP 162/88
== END 2016-12-22 15:51 | disposition home or self-care (01) | DRG 190 ==
LOC: 2ANU 10:57 → EMEROO 10:57 → 2ANU 13:33 → SUATTDRO 15:17
PROVIDERS: ADMIT Nurse Practitioner Family; ATTEND Internal Medicine

== ENCOUNTER 2018-09-13 11:08 | Inpatient (IN) ==
[2018-09-13] MEDS ORDERED: methylPREDNISolone 125 MG/2 ML VIAL IVP ONE (11:34)
[2018-09-13] MEDS ORDERED: Ipratropium/Albuterol Neb 3 ML IH ONE (11:34)
[2018-09-13] MEDS ORDERED: 0.9 % Sodium Chloride 500 ML IVC ONE ×2 (11:34→15:51)
--- NOTE | 2018-09-13 11:46 | Emergency Department Note ---
Disposition Clinical Impression: Elevated lactic acid level Pneumonia Qualifiers: Pneumonia type: due to unspecified organism Laterality: bilateral Lung lo cation: unspecified part of lung Qualified Code(s): J18.9 - Pneumonia, unspecified organism Disposition: Admitted As Inpatient Condition: Fair SOB HPI - General Chief Complaint: ED Shortness of Breath/Dyspnea Stated Complaint: VIELKA Time Seen by Provider: 09/13/18 11:14 Source: patient Limitations: no limitations Nursing Notes Reviewed: Yes Vital Signs Reviewed: Yes - History of Present Illness Patient presenting today for evaluation of shortness of breath concern for pneumonia. Patient has COPD. Not oxygen dependent at home. Patient was diagnosed last week with bronchitis versus pneumonia and placed on antibiotics. Patient does not know the antibiotic. He has been taking this as well as his albuterol. Patient states no other COPD medications. Patient states overall shortness of breath has been getting worse. Cough has been getting worse productive sputum of yellow-green production is been getting worse. Patient with initial pulse ox of 81%. Placed on nasal cannula. Further evaluation for pneumonia. Sepsis order set ordered. - Related Data Home Medications Medication Instructions Recorded Confirmed RX: Lisinopril [Zestril] 5 mg PO DAILY 04/23/16 09/13/18 RX: Metformin HCl [Glucophage] 1,000 mg PO BIDWM 04/23/16 09/13/18 RX: Pravastatin Sodium 10 mg PO HS 04/23/16 09/13/18 RX: Folic Acid 1 mg PO DAILY 12/19/16 09/13/18 RX: Methotrexate Sodium/PF 25 mg SQ FR 12/19/16 09/13/18 [Methotrexate 50 mg/2 ml Vial] Acarbose [Precose] 50 mg PO TIDWM 09/13/18 09/13/18 Acetylcysteine 600 mg PO TID 09/13/18 09/13/18 [D-Sejrvr-k-Cysteine] Albuterol Neb [Proventil Neb] 2.5 mg IH Q8HR PRN 09/13/18 09/13/18 Aspirin Enteric Coated [Aspirin EC] 81 mg PO DAILY 09/13/18 09/13/18 Glimepiride [Amaryl] 4 mg PO 0800 09/13/18 09/13/18 Ipratropium/Albuterol Neb [Duoneb] 3 ml IH Q6HR 09/13/18 09/13/18 Allergies Allergy/AdvReac Type Severity Reaction Status Date / Time Sulfa (Sulfonamide Allergy Rash Verified 06/19/17 10:01 Antibiotics) Review of Systems: CONSTITUTIONAL: fever, chills HEENT: Eyes: No visual changes. Ears, Nose, Throat: No hearing loss, difficulty talking or unable to swallow. SKIN: No rash or itching. CARDIOVASCULAR: No chest pain, chest pressure or chest discomfort. No palpitations or edema. RESPIRATORY: shortness of breath, cough, sputum production GASTROINTESTINAL: No anorexia, nausea, vomiting or diarrhea. No abdominal pain or blood. GENITOURINARY: No burning on urination or hematuria. NEUROLOGICAL: No headache, dizziness, syncope, paralysis, ataxia, numbness or tingling in the extremities. No change in bowel or bladder control. MUSCULOSKELETAL: No muscle pain, back pain, joint pain or stiffness. Past Medical History - Past Medical History Medical history: Reports: arthritis, CHF, COPD, diabetes, GERD, hyperlipidemia, hypertension Psychiatric history: Reports: anxiety, depression - Social History Smoking Status: Former smoker Smokeless Tobacco Status: No Alcohol use: Reports: none Drug use: Reports: none Physical Exam General: Mild respiratory distress Head: Normocephalic Atraumatic Eyes: PERRL, EOMI ENT: Airway patent, no stridor Neck: supple, no meningismus Chest: Diffuse wheezing and rhonchi, moderate Cardiac: Regular rate and rhythm, no murmurs, rubs or gallops Abdomen: soft, nontender, nondistended; no guarding, rebound, or tenderness to percussion Musculoskeletal: Calves symmetric, nontender. Skin: No rash, normal skin tone. Neuro: Alert and Oriented to person, place, and time; No obvious focal deficit. - General Limitations: no limitations General appearance: alert Course Course Narrative: Febrile and tachycardic in the setting of worsening cough and sputum production with underlying COPD. Breathing treatments, Solu-Medrol 125, fluids ordered. - Reevaluation(s) Reevaluation #1: Concern for multifocal infiltrates. Patient will undergo further CTA evaluation to ensure no underlying pulmonary embolus. Reevaluation #2: CTA negative. Patient received ceftriaxone and azithromycin. Family was updated. - Consultations Consultation #1: Discussed the hospitalist. Patient accepted for admission. Vital Signs Temperature 103.1 F H 02/26/19 11:15 Pulse Rate 91 09/13/18 11:15 Respiratory Rate 22 09/13/18 11:15 Blood Pressure 165/73 09/13/18 11:15 O2 Sat by Pulse Oximetry 81 09/13/18 11:15 Temperature 98.6 F 09/13/18 17:55 Pulse Rate 81 09/13/18 17:55 Respiratory Rate 30 09/13/18 18:40 Blood Pressure 160/83 09/13/18 17:55 O2 Sat by Pulse Oximetry 97 09/13/18 18:40 Oxygen Delivery Oxygen Delivery Nasal Cannula Shortness of Breath/Dyspnea - Medical Records Medical records reviewed: Yes I reviewed the patient's medical records. - Lab Data Lab results reviewed: Yes I reviewed the patient's lab results. Result diagrams: 09/13/18 11:48 09/13/18 11:48 Lab Results 09/13/18 09/13/18 09/13/18 Range/Units 11:39 11:48 11:48 WBC 6.3 (4.3-11.1) K/mcL RBC 3.60 L (4.19-5.50) M/mcL Hgb 11.4 L (12.9-16.9) g/dL Hct 34.5 L (37.5-50.1) % MCV 95.8 (83.0-100.0) fL MCH 31.7 (28.0-33.3) pg MCHC 33.0 (31.6-35.5) g/dL RDW 14.3 (11.5-14.5) % Plt Count 159 (140-400) K/mcL MPV 11.0 (9.4-12.4) fL Immature Gran % 0.6 (0-4) % Seg Neutrophils % 85.1 % Lymphocytes % 8.9 % Monocytes % 5.2 % Eosinophils % 0.0 % Basophils % 0.2 % Neutrophils # 5.4 (1.6-8.9) K/mcL Lymphocytes # 0.6 (0.6-4.6) K/mcL Monocytes # 0.3 (0.0-1.3) K/mcL Eosinophils # 0.0 (0.0-0.6) K/mcL Basophils # 0.0 (0.0-0.2) K/mcL PT 13.8 H (9.4-12.1) Seconds INR 1.2 Sodium (136-145) mEq/L Potassium (3.5-5.1) mEq/L Chloride (98-107) mEq/L Carbon Dioxide (23-29) mEq/L BUN (8-23) mg/dL Creatinine (0.70-1.30) mg/dL Est GFR ( Amer) (> 60) Est GFR (Non-Af Amer) (> 60) BUN/Creatinine Ratio (6-26) Glucose (70-105) mg/dL Calculated Osmolality (280-300) Lactic Acid (0.5-2.2) mmol/L Calcium (8.6-10.3) mg/dL Phosphorus (2.7-4.5) mg/dL Magnesium (1.6-2.6) mg/dL Troponin I (< 0.04) ng/mL B-Natriuretic Peptide (Less than 100) pg/mL Urine Color Yellow (Yellow) Urine Clarity Clear (Clear) Urine pH 5.5 (5.0-8.0) pH Units Ur Specific [place] 1.029 H (1.010-1.025) Urine Protein 100 H (Neg-Trace) mg/dL Urine Glucose (UA) Normal (Normal) mg/dL Urine Ketones 40 H (Negative) mg/dL Urine Blood Moderate H (Negative) Urine Nitrite Negative (Negative) Urine Bilirubin Negative (Negative) Urine Urobilinogen Normal (Normal) mg/dL Ur Leukocyte Esterase Negative (Negative) Urine Microscopic RBC 0-3 (0-3) per hpf Urine Microscopic WBC 3-5 H (0-3) per hpf Ur Squamous Epith Cells Many H (None-Few) per lpf Urine Bacteria None Seen (None-Few) per hpf Hyaline Casts None Seen (None-Few) per lpf Ur Culture Indicated? NO (NO) Specimen Rejected 09/13/18 09/13/18 09/13/18 Range/Units 11:48 11:48 11:59 WBC (4.3-11.1) K/mcL RBC (4.19-5.50) M/mcL Hgb (12.9-16.9) g/dL Hct (37.5-50.1) % MCV (83.0-100.0) fL MCH (28.0-33.3) pg MCHC (31.6-35.5) g/dL RDW (11.5-14.5) % Plt Count (140-400) K/mcL MPV (9.4-12.4) fL Immature Gran % (0-4) % Seg Neutrophils % % Lymphocytes % % Monocytes % % Eosinophils % % Basophils % % Neutrophils # (1.6-8.9) K/mcL Lymphocytes # (0.6-4.6) K/mcL Monocytes # (0.0-1.3) K/mcL Eosinophils # (0.0-0.6) K/mcL Basophils # (0.0-0.2) K/mcL PT (9.4-12.1) Seconds INR Sodium 134 L (136-145) mEq/L Potassium 3.9 (3.5-5.1) mEq/L Chloride 94 L (98-107) mEq/L Carbon Dioxide 24 (23-29) mEq/L BUN 19 (8-23) mg/dL Creatinine 0.99 (0.70-1.30) mg/dL Est GFR ( Amer) > 60 (> 60) Est GFR (Non-Af Amer) > 60 (> 60) BUN/Creatinine Ratio 19 (6-26) Glucose 217 H (70-105) mg/dL Calculated Osmolality 287 (280-300) Lactic Acid 2.9 H (0.5-2.2) mmol/L Calcium 8.7 (8.6-10.3) mg/dL Phosphorus 2.4 L (2.7-4.5) mg/dL Magnesium 1.8 (1.6-2.6) mg/dL Troponin I 0.04 H* (< 0.04) ng/mL B-Natriuretic Peptide 170 H (Less than 100) pg/mL Urine Color (Yellow) Urine Clarity (Clear) Urine pH (5.0-8.0) pH Units Ur Specific [place] (1.010-1.025) Urine Protein (Neg-Trace) mg/dL Urine Glucose (UA) (Normal) mg/dL Urine Ketones (Negative) mg/dL Urine Blood (Negative) Urine Nitrite (Negative) Urine Bilirubin (Negative) Urine Urobilinogen (Normal) mg/dL Ur Leukocyte Esterase (Negative) Urine Microscopic RBC (0-3) per hpf Urine Microscopic WBC (0-3) per hpf Ur Squamous Epith Cells (None-Few) per lpf Urine Bacteria (None-Few) per hpf Hyaline Casts (None-Few) per lpf Ur Culture Indicated? (NO) Specimen Rejected 09/13/18 09/13/18 Range/Units 12:20 15:39 WBC (4.3-11.1) K/mcL RBC (4.19-5.50) M/mcL Hgb (12.9-16.9) g/dL Hct (37.5-50.1) % MCV (83.0-100.0) fL MCH (28.0-33.3) pg MCHC (31.6-35.5) g/dL RDW (11.5-14.5) % Plt Count (140-400) K/mcL MPV (9.4-12.4) fL Immature Gran % (0-4) % Seg Neutrophils % % Lymphocytes % % Monocytes % % Eosinophils % % Basophils % % Neutrophils # (1.6-8.9) K/mcL Lymphocytes # (0.6-4.6) K/mcL Monocytes # (0.0-1.3) K/mcL Eosinophils # (0.0-0.6) K/mcL Basophils # (0.0-0.2) K/mcL PT (9.4-12.1) Seconds INR Sodium (136-145) mEq/L Potassium (3.5-5.1) mEq/L Chloride (98-107) mEq/L Carbon Dioxide (23-29) mEq/L BUN (8-23) mg/dL Creatinine (0.70-1.30) mg/dL Est GFR ( Amer) (> 60) Est GFR (Non-Af Amer) (> 60) BUN/Creatinine Ratio (6-26) Glucose (70-105) mg/dL Calculated Osmolality (280-300) Lactic Acid 3.2 H (0.5-2.2) mmol/L Calcium (8.6-10.3) mg/dL Phosphorus (2.7-4.5) mg/dL Magnesium (1.6-2.6) mg/dL Troponin I (< 0.04) ng/mL B-Natriuretic Peptide (Less than 100) pg/mL Urine Color (Yellow) Urine Clarity (Clear) Urine pH (5.0-8.0) pH Units Ur Specific [place] (1.010-1.025) Urine Protein (Neg-Trace) mg/dL Urine Glucose (UA) (Normal) mg/dL Urine Ketones (Negative) mg/dL Urine Blood (Negative) Urine Nitrite (Negative) Urine Bilirubin (Negative) Urine Urobilinogen (Normal) mg/dL Ur Leukocyte Esterase (Negative) Urine Microscopic RBC (0-3) per hpf Urine Microscopic WBC (0-3) per hpf Ur Squamous Epith Cells (None-Few) per lpf Urine Bacteria (None-Few) per hpf Hyaline Casts (None-Few) per lpf Ur Culture Indicated? (NO) Specimen Rejected Hemolyzed - Radiology Data Radiology results reviewed: Yes I reviewed the patient's radiology results. Chest X-Ray 09/13/18 11:32 IMPRESSION: Findings consistent with multifocal pneumonia. Consider follow-up imaging to resolution. D/ / Michael Lee MD / Michael Lee MD Interpreting Provider: Michael Lee MD Chest CTA 09/13/18 12:45 IMPRESSION: 1. No evidence of pulmonary embolism 2. Multifocal pneumonia, more severe on the left, with reactive adenopathy D/ / Sha Hughes MD / Sha Hughes MD Interpreting Provider: Sha Hughes MD - EKG Data EKG attestation: Yes I reviewed and interpreted this EKG. EKG results narrative: EKG shows sinus rhythm with heart of 89 AR 1-2 QRS [address] elevations or depressions. Nonspecific changes to the lateral leads secondary to artifacts. Patient does have concern for nonspecific T-wave changes to lead 3 compared to old EKG of 11/03/17.
[2018-09-13 12:14] LABS: Bilirubin,Urine Negative (Negative); Blood,Urine Moderate (Negative); Clarity,Urine Clear (Clear); Color,Urine Yellow (Yellow); Glucose,Urine (UA) Normal (Normal); Ketones,Urine 40 mg/dL (Negative); Leukocyte Esterase,Urine Negative (Negative); Nitrite,Urine Negative (Negative); PH,Urine 5.5 pH Units (5.0-8.0); Protein,Urine 100 mg/dL (Neg-Trace); Specific Gravity,Urine 1.029 (1.010-1.025); Urobilinogen,Urine Normal (Normal)
[2018-09-13 12:17] LABS: Bacteria,Urine None Seen per hpf (None-Few); Hyaline Casts,Urine None Seen per lpf (None-Few); RBC,Urine 0-3 per hpf (0-3); Squamous Epithelial Cell,Urine Many per lpf (None-Few)
[2018-09-13 12:26] LABS: Basophils % 0.2 %; Hematocrit 34.5 % (37.5-50.1); Hemoglobin 11.4 g/dL (12.9-16.9); Immature Granulocytes % 0.6 % (0-4); Lymphocytes # 0.6 K/mcL (0.6-4.6); Lymphocytes % 8.9 %; Mean Corpuscular Hemoglobin 31.7 pg (28.0-33.3); Mean Corpuscular Volume 95.8 fL (83.0-100.0); Monocytes # 0.3 K/mcL (0.0-1.3); Monocytes % 5.2 %; Neutrophils # 5.4 K/mcL (1.6-8.9); Platelet Count 159 K/mcL (140-400); Red Cell Distribution Width 14.3 % (11.5-14.5); Segmented Neutrophils % 85.1 %
[2018-09-13 12:35] LABS: INR 1.2; Prothrombin Time 13.8 Seconds (9.4-12.1)
[2018-09-13 12:38] LABS: BUN/Creatinine Ratio 19 (6-26); Blood Urea Nitrogen 19 mg/dL (8-23); Calcium 8.7 mg/dL (8.6-10.3); Carbon Dioxide 24 mEq/L (23-29); Chloride 94 mEq/L (98-107); Glucose 217 mg/dL (70-105); Magnesium 1.8 mg/dL (1.6-2.6); Osmolality,Calculated 287 (280-300); Phosphorous 2.4 mg/dL (2.7-4.5); Potassium 3.9 mEq/L (3.5-5.1); Sodium 134 mEq/L (136-145); eGFR For Non-African Americans > 60 (> 60)
[2018-09-13] MEDS ORDERED: Isovue-370 500 ML BOTTLE IVP ONE (12:45)
[2018-09-13] MEDS ORDERED: cefTRIAXone 1,000 MG in Water for inj. (sterile) 20 ML 10 ML IVP ONE (12:46)
[2018-09-13] MEDS ORDERED: Azithromycin 500 MG in D5% in Water 250 ML IVPB ONE (12:46)
[2018-09-13 12:48] LABS: Troponin I 0.04 ng/mL (< 0.04)
[2018-09-13] MEDS ORDERED: Naloxone 0.4 MG/ML INJ IVP PRN (15:49)
[2018-09-13] MEDS ORDERED: *HR* OxyCODONE Immed Rel 5 MG TABLET PO PRN (15:49)
[2018-09-13] MEDS ORDERED: *HR* HYDROcodone/Acet 5/325 mg TABLET PO PRN (15:49)
[2018-09-13] MEDS ORDERED: Aspirin 325 MG TABLET PO ONE (15:51)
[2018-09-13] MEDS ORDERED: Dextrose Gel 15 GM/37.5 ML TUBE PO PRN ×2 (15:54)
[2018-09-13] MEDS ORDERED: D5% in Water 1,000 ML IVC PRN (15:54)
[2018-09-13] MEDS ORDERED: Dextrose 4 GM Chewable Tablets PO PRN ×2 (15:54)
[2018-09-13] MEDS ORDERED: *HR* Dextrose 50 % in Water (Syg) 50 ML SYRINGE IVP PRN (15:54)
[2018-09-13] MEDS ORDERED: 0.9 % Sodium Chloride w KCl 20 MEQ/1,000 ML MLS IVC SCH (16:00)
--- NOTE | 2018-09-13 16:02 | Internal Med History&Physical ---
Date of Encounter: 09/13/18 Time of Encounter: 15:59 Internal Medicine - H&P: HPI Chief complaint: Shortness of breath Admitted From: Home Plans for Post Hospital Care: Home History of present illness: Mr. Felipe is a 68 year old male with history of COPD, diabetes and hypertension presented to the emergency department with complaint of shortness of breath. As per patient his shortness of breath started 4 days ago and he visited his primary care physician for routine follow-up and was prescribed azithromycin which he took every day without any relief. History is of breath is associated with cough with productive yellow sputum. In addition to productive cough he has also experienced wheezing along with his shortness of breath. He has used his home inhalers without any relief. On the day of admission his shortness of breath got worse so he decided to come to the emergency department for further evaluation. He has never been intubated for COPD, does not use oxygen at home. He is received influenza and pneumonia vaccination, denies fever, chills, nausea, vomiting, diarrhea, chest pain, shortness of breath, calf tenderness, leg swelling, PND or orthopnea His shortest of breath is relieved with rest and worsens on ambulation. While in the emergency department he was found to be hypoxic at 81% which i mproved with nasal cannula, CTPA was performed which ruled out PE however it showed multifocal pneumonia and he was endorsed for further management of his symptoms Past Med Surg Social Fam HX - Past Medical History Medical history: arthritis, CHF, COPD, diabetes, GERD, hyperlipidemia, hypertension Psychiatric history: anxiety, depression - Past Surgical History Additional surgical history: throat surgery - Social History Smoking Status: Former smoker Smokeless Tobacco Status: No Alcohol use: none Drug use: none - Family History Father Living Status: Mother Living Status: Still Living Hx Family Cardiac Disorders: Yes (Hypertension) Internal Medicine - H&P: Meds GlipiZIDE [Glipizide Xl] 5 mg PO BID 04/23/16 [History] Lisinopril [Zestril] 5 mg PO DAILY 04/23/16 [History] Metformin HCl [Glucophage] 1,000 mg PO BID 04/23/16 [History] Pravastatin Sodium 10 mg PO DAILY 04/23/16 [History] Folic Acid 1 mg PO DAILY 12/19/16 [History] Methotrexate Sodium/PF [Methotrexate 50 mg/2 ml Vial] 50 mg SQ FR 12/19/16 [History] Albuterol Sulfate [Albuterol Inhaler] 2 puff IH Q4HR PRN #1 puff 12/22/16 [Rx] Ciprofloxacin [Cipro] 500 mg PO BID #14 tablet 12/22/16 [Rx] predniSONE [PredniSONE] 10 mg PO DAILY 8 Days tablet 12/22/16 [Rx] levoFLOXacin [Levaquin] 750 mg PO DAILY #10 tablet 06/19/17 [Rx] predniSONE [PredniSONE] 10 mg PO DAILY #21 tablet 06/19/17 [Rx] Allergy/AdvReac Type Severity Reaction Status Date / Time Sulfa (Sulfonamide Allergy Rash Verified 06/19/17 10:01 Antibiotics) All Systems PM: A 10-system review of systems was performed and is negative for pertinent findings except as documented above in the HPI. - Constitutional Vitals: Temp Pulse Resp BP Pulse Ox 103.1 F H 77 26 122/84 93 09/13/18 11:15 09/13/18 14:15 09/13/18 14:15 09/13/18 14:15 09/13/18 14:15 Exam: General: Patient is alert, oriented, no acute distress, speaks in full sentences, laying supine Head: atraumatic, normocephalic, Eye: normal appearance, PERRL, no scleral icterus, no conjunctival injection ENT: mucous membranes moist, normal external ear exam Neck: normal inspection, trachea midline, full ROM, no carotid bruits Chest: normal inspection, symmetric chest rise Respiratory: Good respiratory effort. Tachycardia neck, diffuse wheezing in anterior chest, crackles diffusely in the posterior lung field Cardiovascular: Regular rate and rhythm. s1 and s2 No clicks, rubs, gallops, or murmors. Abdomen: Bowel sounds present normoactive x-4 quadrants. Abdomen is soft, nondistended. no Epigastric tenderness. No guarding or rebound. No organomegaly noted, obese musculoskeletal: Spontaneously moving all extremities. no edema, no calf t enderness Skin: warm, dry, intact. Neuro: Alert and oriented x4. No focal deficit Psych: Patient's affect is normal Internal Med - H&P Results - Labs CBC & Chem 7: 09/13/18 11:48 09/13/18 11:48 Labs: Short CBC 09/13/18 Range/Units 11:48 WBC 6.3 (4.3-11.1) K/mcL Hgb 11.4 L (12.9-16.9) g/dL Hct 34.5 L (37.5-50.1) % Plt Count 159 (140-400) K/mcL Neutrophils # 5.4 (1.6-8.9) K/mcL BMP 09/13/18 11:48 Sodium 134 L Potassium 3.9 Chloride 94 L Carbon Dioxide 24 BUN 19 Creatinine 0.99 Glucose 217 H Calcium 8.7 Cardiac Enzymes 09/13/18 Range/Units 11:48 Troponin I 0.04 H* (< 0.04) ng/mL Urine 09/13/18 Range/Units 11:39 Urine Color Yellow (Yellow) Urine Clarity Clear (Clear) Urine pH 5.5 (5.0-8.0) pH Units Ur Specific [place] 1.029 H (1.010-1.025) Urine Protein 100 H (Neg-Trace) mg/dL Urine Glucose (UA) Normal (Normal) mg/dL - EKG Data -: EKG Interpreted by Myself (poor quality, NSR, repol abnormality, [id number], PVC - asked to be repeated ) - EKG Data Prior EKG available for review: yes When compared to previous EKG: there is no significant change - Impressions ITS Impressions Chest X-Ray 09/13/18 11:32 IMPRESSION: Findings consistent with multifocal pneumonia. Consider follow-up imaging to resolution. D/ / Michael Lee MD / Michael Lee MD Interpreting Provider: Michael Lee MD Chest CTA 09/13/18 12:45 IMPRESSION: 1. No evidence of pulmonary embolism 2. Multifocal pneumonia, more severe on the left, with reactive adenopathy D/ / Sha Hughes MD / Sha Hughes MD Interpreting Provider: Sha Hughes MD - Assessment and Plan (1) Multifocal pneumonia Current Visit: Yes Status: Acute Assessment and plan: Was started on ceftriaxone and azithromycin in the emergency department we will continue Sputum cultures/ blood cx Respiratory viral panel Urine antigens Blood cultures Oxygen via nasal cannula to keep sats above 92% CTPA: IMPRESSION: 1. No evidence of pulmonary embolism 2. Multifocal pneumonia, more severe on the left, with reactive adenopathy (2) Acute exacerbation of chronic obstructive pulmonary disease (COPD) Current Visit: Yes Status: Acute Assessment and plan: Symbicort Duo nebs every 4 hours as needed Solu-Medrol 125 mg was given in the emergency departmentcontinue with 40 mg every 8 hours Oxygen via nasal cannula to keep saturations above 92% The rest of management as above We will need outpatient follow-up with pulmonology for formal PFTs (3) Acute respiratory failure with hypoxia Current Visit: Yes Status: Acute Assessment and plan: Acute hypoxic respiratory failure requiring oxygen Is not use oxygen at home Continuous pulse ox If she develops worsening respiratory status intubate Continue with DuoNeb's Continue with oxygen via nasal cannula to keep sats above 92% CTPA performed in emergency department ruled out PE CTPA: IMPRESSION: 1. No evidence of pulmonary embolism 2. Multifocal pneumonia, more severe on the left, with reactive adenopathy (4) Elevated troponin Current Visit: Yes Status: Acute Assessment and plan: Elevated troponin most likely secondary to supply versus demand mismatch cannot rule out underlying CAD First troponin was 0.04 continue to follow every 6 hours along with EKG Was given aspirin 325 mg the ED will continue with aspirin 81 mg Lipid panel in the morning Continue with home statin and SASHA inhibitor Echocardiogram Cardiac monitoring (5) Hypertension Current Visit: No Status: Acute Assessment and plan: Continue home medications if not contraindicated Qualifiers: Hypertension type: essential hypertension Qualified Code(s): I10 - Essential (primary) hypertension (6) Diabetes Current Visit: No Status: Chronic Assessment and plan: Hold home oral hypoglycemics Started on insulin sliding scale is as per fingersticks A1c in a.m. Qualifiers: Diabetes mellitus type: type 2 Diabetes mellitus skilled nursing insulin use: without termination clerk use Diabetes mellitus complication status: without complication Qualified Code(s): E11.9 - Type 2 diabetes mellitus without complications (7) DVT prophylaxis Current Visit: No Status: Acute Assessment and plan: heparin sc - Time Spent With Patient Total time spent is greater than 50% in coordination of care (as documented) at patient's floor/unit and/or counseling patient:
[2018-09-13] MEDS ORDERED: 0.9 % Sodium Chloride 1,000 ML IVC SCH ×2 (16:15→17:25)
[2018-09-13] MEDS: Ipratropium/Albuterol Neb 3 ML IH SCH ×2 (16:44→20:11)
[2018-09-13] MEDS: MethylPREDNISolone 40 MG/ML VIAL IVP SCH (18:12)
[2018-09-13] MEDS: Insulin LISPRO 300 UNITS/3 ML VIAL SQ SCH ×2 (18:27→21:05)
[2018-09-13 19:41] LABS: ABG Base Excess 1 mEq/L (-2 to 3); ABG HCO3 25 mEq/L (21-27); ABG Oxygen Saturation 98 % (95-98); ABG PCO2 37 mmHg (35-45); ABG PH 7.43 pH Units (7.32-7.45); ABG PO2 93 mmHg (85-104); ABG TCO2 26 mEq/L (20-26); Blood Gas Modality ASSIST CONTROL
[2018-09-13] MEDS ORDERED: Furosemide 40 MG/4 ML VIAL IVP ONE (19:41)
[2018-09-13] MEDS: Budesonide/Formoterol 160/4.5 1 PUFF INH IH SCH (20:11)
[2018-09-13] MEDS: *HR* Heparin 5,000 UNIT/ML VIAL SQ SCH (21:05)
[2018-09-13] MEDS: *HR* Acetylcysteine 20% 600 MG/3 ML ORAL SYRINGE PO SCH (21:16)
[2018-09-13] MEDS: Acetaminophen 325 MG TABLET PO PRN (22:26)
[2018-09-14] MEDS: MethylPREDNISolone 40 MG/ML VIAL IVP SCH ×3 (00:11→17:23)
[2018-09-14] MEDS: Ipratropium/Albuterol Neb 3 ML IH SCH ×7 (00:14→23:16)
[2018-09-14 01:26] LABS: Basophils % 0.1 %; Hemoglobin 10.8 g/dL (12.9-16.9); Immature Granulocytes % 0.7 % (0-4); Lymphocytes # 0.5 K/mcL (0.6-4.6); Lymphocytes % 5.5 %; Mean Corpuscular HGB Conc 33.8 g/dL (31.6-35.5); Mean Corpuscular Volume 94.7 fL (83.0-100.0); Mean Platelet Volume 10.9 fL (9.4-12.4); Monocytes # 0.4 K/mcL (0.0-1.3); Monocytes % 4.3 %; Neutrophils # 8.1 K/mcL (1.6-8.9); Platelet Count 145 K/mcL (140-400); Red Blood Count 3.38 M/mcL (4.19-5.50); Red Cell Distribution Width 14.3 % (11.5-14.5); Segmented Neutrophils % 89.4 %
[2018-09-14 01:36] LABS: BUN/Creatinine Ratio 20 (6-26); Blood Urea Nitrogen 21 mg/dL (8-23); Calcium 8.4 mg/dL (8.6-10.3); Carbon Dioxide 26 mEq/L (23-29); Chloride 99 mEq/L (98-107); Chol/HDL Ratio 3.3 (0-4.9); Cholesterol 85 mg/dL (< 200); Glucose 373 mg/dL (70-105); HDL Cholesterol 26 mg/dL (40-59); LDL Cholesterol,Calculated 43 mg/dL (0-99); Osmolality,Calculated 298 (280-300); Phosphorous 2.5 mg/dL (2.7-4.5); Potassium 4.1 mEq/L (3.5-5.1); Sodium 135 mEq/L (136-145); Triglycerides 82 mg/dL (< 150); eGFR For Non-African Americans > 60 (> 60)
[2018-09-14 02:28] LABS: Adenovirus Not Detected (Not Detect); Bordetella Pertussis Not Detected (Not Detect); Chlamydophila pneumoniae Not Detected (Not Detect); Coronavirus 229E Not Detected (Not Detect); Coronavirus HKU1 Not Detected (Not Detect); Coronavirus NL63 Not Detected (Not Detect); Coronavirus OC43 Not Detected (Not Detect); Human Metapneumovirus DETECTED (Not Detect); Human Rhinovirus/Enterovirus Not Detected (Not Detect); Influenza A Subtype 2009 H1 Not Detected (Not Detect); Influenza A Untypeable Not Detected (Not Detect); Influenza B Not Detected (Not Detect); Mycoplasma pneumoniae Not Detected (Not Detect); Parainfluenza Virus 1 Not Detected (Not Detect); Parainfluenza Virus 2 Not Detected (Not Detect); Parainfluenza Virus 3 Not Detected (Not Detect); Parainfluenza Virus 4 Not Detected (Not Detect); Respiratory Syncytial Virus Not Detected (Not Detect)
--- NOTE | 2018-09-14 05:37 | Event Note ---
Date of Encounter: 09/13/18 Time of Encounter: 21:55 Alerted by patient's nurse JULEE Marie that patient's lactic was now 4.0, up from 3.0. VS at the time: 99.8F temp, BP 133/67, HR 85, SpO2 92% on 3L. Nurse reported pt. had audible wheezes but pt. stated he did not feel more SOB. Nurse instructed to give ordered Tylenol for fever. Alerted at 00:27 that pts. temp was now 98.2. Repeat lactic ordered for 01:00 which was now 1.8. Troponins all 0.04 w/pt. denying any CP. Pt. on BiPAP. Nurse instructed to collect urine for ordered legionella and strep pneumoniae antigens. Sputum culture ordered but not collected d/t no sputum from pt. yet. Sodium improved from 134 to 135. VS at 04:21: 98.7F temp, HR 76, RR 18, BP 136/68, SPO2 96% on BiPAP. Nurse instructed to continue monitoring pt. very closely and notify me immediately of any adverse changes.
[2018-09-14] MEDS: *HR* Heparin 5,000 UNIT/ML VIAL SQ SCH ×3 (05:42→22:02)
[2018-09-14] MEDS: Budesonide/Formoterol 160/4.5 1 PUFF INH IH SCH ×2 (07:36→19:44)
[2018-09-14 07:55] LABS: Estimated Average Glucose 194 mg/dl; Hemoglobin A1C 8.4 %
--- NOTE | 2018-09-14 09:37 | Internal Med Progress Note ---
Hospitalist Progress Note - Encounter Date of Encounter: 09/14/18 Time of Encounter: 09:35 - Subjective Interval History: patient was seen and examined at bedside reports that his breathing has improved. He continues to have productive cough, was asked to provide sputum, He denies fever or chills, chest pain or palpitations. All questions answered. Tolerating diet - Exam Vitals: Temp Pulse Resp BP Pulse Ox 100.2 F H 78 16 135/77 92 09/14/18 06:58 09/14/18 06:58 09/14/18 07:36 09/14/18 06:58 09/14/18 07:36 Exam: General: Patient is alert, oriented, no acute distress, speaks in full sentences, on oxygen via nasal cannula Head: atraumatic, normocephalic, Eye: normal appearance, PERRL, no scleral icterus, no conjunctival injection ENT: mucous membranes moist, normal external ear exam Neck: normal inspection, trachea midline, full ROM, no carotid bruits Chest: normal inspection, symmetric chest rise Respiratory: Good respiratory effort. diffuse wheezing in anterior chest, crackles diffusely in the posterior lung field Cardiovascular: Regular rate and rhythm. s1 and s2 No clicks, rubs, gallops, or murmors. Abdomen: Bowel sounds present normoactive x-4 quadrants. Abdomen is soft, nondistended. no Epigastric tenderness. No guarding or rebound. No organomegaly noted, obese musculoskeletal: Spontaneously moving all extremities. no edema, no calf tenderness Skin: warm, dry, intact. Neuro: Alert and oriented x4. No focal deficit Psych: Patient's affect is normal - Assessment and Plan (1) Multifocal pneumonia Current Visit: Yes Status: Acute Assessment and Plan: Continue with ceftriaxone and azithromycin Sputum cultures/ blood cx- pending Respiratory viral panel- positive for human metapneumovir Urine antigens- pending - nursing staff aware Oxygen via nasal cannula to keep sats above 92% CXR from today with out improvement CTPA: IMPRESSION: 1. No evidence of pulmonary embolism 2. Multifocal pneumonia, more severe on the left, with reactive adenopathy (2) Sepsis Current Visit: Yes Status: Acute Assessment and Plan: sepsis ( fever of 103.1, RR 22, hypoxia 81% lactic acid 3) secondary to above management as above (3) Acute exacerbation of chronic obstructive pulmonary disease (COPD) Current Visit: Yes Status: Acute Assessment and Plan: Symbicort Duo nebs every 4 hours as needed Solu-Medrol 125 mg was given in the emergency departmentcontinue with 40 mg every 8 hours as he continues to wheeze Oxygen via nasal cannula to keep saturations above 92% The rest of management as above pulmonology was consulted will follow recommendations PFTs in - Spirometry shows moderate airway obstructive pattern No response to inhaled bronchodilators is seen MVV is decreased. Lung Volumes TLC mildly reduced. Diffusion Capacity is moderately reduced. Flow Volume Loop: Obstructive (4) Acute respiratory failure with hypoxia Current Visit: Yes Status: Acute Assessment and Plan: Acute hypoxic respiratory failure requiring oxygen Is not use oxygen at home Continuous pulse ox Continue with DuoNeb's Continue with oxygen via nasal cannula to keep sats above 92% CTPA performed in emergency department ruled out PE will follow pulmonology recommendations CTPA: IMPRESSION: 1. No evidence of pulmonary embolism 2. Multifocal pneumonia, more severe on the left, with reactive adenopathy (5) Elevated troponin Current Visit: Yes Status: Acute Assessment and Plan: Elevated troponin most likely secondary to supply versus demand mismatch cannot rule out underlying CAD First troponin was 0.04 x 3 Was given aspirin 325 mg the ED will continue with aspirin 81 mg Lipid panel in the morning continue with statin and SASHA inhibitor- added low dose BB Echocardiogram - pending Cardiac monitoring (6) Hypertension Current Visit: No Status: Acute Assessment and Plan: Continue home medications if not contraindicated (7) Diabetes Current Visit: No Status: Chronic Assessment and Plan: Hold home oral hypoglycemics started on long acting. insulin sliding scale is as per fingersticks A1c -8.4 (8) Hypophosphatemia Current Visit: Yes Status: Acute Assessment and Plan: replaced follow in AM (9) DVT prophylaxis Current Visit: No Status: Acute Assessment and Plan: heparin sc - Time Spent with Patient Total time spent is greater than 50% in coordination of care (as documented) at patient's floor/unit and/or counseling patient: Internal Medicine: Result - Labs CBC & Chem 7: 09/14/18 01:05 09/14/18 01:05 Labs: Short CBC 09/13/18 09/14/18 Range/Units 11:48 01:05 WBC 6.3 9.1 (4.3-11.1) K/mcL Hgb 11.4 L 10.8 L (12.9-16.9) g/dL Hct 34.5 L 32.0 L (37.5-50.1) % Plt Count 159 145 (140-400) K/mcL Neutrophils # 5.4 8.1 (1.6-8.9) K/mcL BMP 09/13/18 09/14/18 11:48 01:05 Sodium 134 L 135 L Potassium 3.9 4.1 Chloride 94 L 99 Carbon Dioxide 24 BUN 19 21 Creatinine 0.99 1.05 Glucose 217 H 373 H Calcium 8.7 8.4 L Cardiac Enzymes 09/13/18 09/13/18 09/13/18 Range/Units 11:48 18:32 23:47 Troponin I 0.04 H* 0.04 H* 0.04 H* (< 0.04) ng/mL Urine 09/13/18 Range/Units 11:39 Urine Color Yellow (Yellow) Urine Clarity Clear (Clear) Urine pH 5.5 (5.0-8.0) pH Units Ur Specific [place] 1.029 H (1.010-1.025) Urine Protein 100 H (Neg-Trace) mg/dL Urine Glucose (UA) Normal (Normal) mg/dL - ABG Interpretation ABG results: ABG ABG pH 7.43 pH Units (7.32-7.45) 09/13/18 19:37 ABG pCO2 37 mmHg (35-45) 09/13/18 19:37 ABG pO2 93 mmHg (85-104) 09/13/18 19:37 ABG O2 Saturation 98 % (95-98) 09/13/18 19:37 PT/INR, D-dimer PT 13.8 Seconds (9.4-12.1) H 09/13/18 11:48 - Impressions Impressions Chest X-Ray 09/13/18 11:32 IMPRESSION: Findings consistent with multifocal pneumonia. Consider follow-up imaging to resolution. D/ / Michael Lee MD / Michael Lee MD Interpreting Provider: Michael Lee MD Chest CTA 09/13/18 12:45 IMPRESSION: 1. No evidence of pulmonary embolism 2. Multifocal pneumonia, more severe on the left, with reactive adenopathy D/ / Sha Hughes MD / Sha Hughes MD Interpreting Provider: Sha Hughes MD Chest X-Ray 09/13/18 19:07 IMPRESSION: 1. No appreciable interval change in the pulmonary findings probably related to pulmonary edema, ARDS or diffuse infection. 2. Small left pleural effusion is evident. D/ / Shady Calendine / Shady Calendine Interpreting Provider: Shady Calendine Chest X-Ray 09/14/18 07:24 IMPRESSION: 1. No significant change. D/ / Michael Chowdhury MD / Michael Chowdhury MD Interpreting Provider: Michael Chowdhury MD Consult Discharge Plan - Plan Referrals: Dione Choi MD [Primary Care Provider] - 09/21/18 9:00 am (Please follow up as schedule...) (2) Sepsis Qualifiers: Sepsis type: sepsis due to unspecified organism Qualified Code(s): A41.9 - Sepsis, unspecified organism (6) Hypertension Qualifiers: Hypertension type: essential hypertension Qualified Code(s): I10 - Essential (primary) hypertension (7) Diabetes Qualifiers: Diabetes mellitus type: type 2 Diabetes mellitus assisted insulin use: without terminal supervisor use Diabetes mellitus complication status: without complication Qualified Code(s): E11.9 - Type 2 diabetes mellitus without complications
[2018-09-14] MEDS: Insulin LISPRO 300 UNITS/3 ML VIAL SQ SCH ×4 (09:56→22:01)
[2018-09-14] MEDS: Folic Acid 1 MG TABLET PO SCH (09:58)
[2018-09-14] MEDS: Aspirin 81 MG TAB.CHEW PO SCH (09:58)
[2018-09-14] MEDS: Azithromycin 500 MG in D5% in Water 250 ML IVPB SCH (09:58)
[2018-09-14] MEDS: cefTRIAXone 2,000 MG in Water for inj. (sterile) 20 ML 20 ML IVP SCH (09:59)
[2018-09-14] MEDS: *HR* Acetylcysteine 20% 600 MG/3 ML ORAL SYRINGE PO SCH ×3 (11:31→22:24)
--- NOTE | 2018-09-14 11:51 | Pulmonology Consult Note ---
<Lulu Glass - Last Filed: 09/14/18 14:38> Date of Encounter: 09/14/18 Time of Encounter: 10:00 Assessment and Plan (1) Acute respiratory failure with hypoxia Current Visit: Yes Status: Acute Presented to the ED complaining of shortness of breath. Was noted to have oxygen saturation of 81%. Likely secondary to human melapneumoviral infection. Chest x-ray did show bilateral lung opacities. His CURB 65 score is one just due to age. His platelet count is slightly decreased in comparison to his baseline and BNP is also mildly elevated which can be signs of ARDS Blood he is resting comfortably in bed and not complaining of respiratory d istress, very rate is 22, does not have uremia, is not confused and blood pressure is stable. Can consider stopping ceftriaxone after 3 days due to likely viral cause. Should continue DuoNeb, Symbicort and azithromycin as well as Solu-Medrol. Recommend medical management due to viral. (2) Acute exacerbation of chronic obstructive pulmonary disease (COPD) Current Visit: Yes Status: Acute History of COPD is on DuoNeb at home and is compliant with his inhaler. Planing of wheezing and worsening shortness of breath likely exacerbated due to his current viral infection. Continue IV Solu-Medrol and titrate as tolerated. Also continue continue bronchodilator Continue DuoNeb and azithromycin. History of Present Illness Consult date: 09/14/18 Requesting physician: Mary Lou Powers Reason for consult: dyspnea Chief complaint: Shortness of breath History of present illness: Mr. Felipe is a 68-year-old male who presented to the ED complaining of shortness of breath ongoing since 09/09/18. He presented to his PCP on 09/09/18 due to complaints of shortness of breath and wheezing and received azithromycin. He noted the antibiotic was not helping his symptoms and his shortness of brianna th progressively got worse reading to his current admission. He is also having associated productive cough. He does have history of COPD and reports he is compliant with his inhalers. He also has history of sleep apnea and is compliant with his CPAP machine. He does not use home oxygen. In the ED he had a CTA of the chest were done which did not show pulmonary embolism but noted multifocal pneumonia. Pneumonia is likely due to viral cause, consider adjusting ceftriaxone as it is less likely bacterial. Upon admission his viral respiratory panel was positive for human metapneumovirus. His at presentation his lactic acid was elevated to 4.0 and BNP was mildly elevated at 170. This morning he is resting in bed and on 4 L of nasal cannula and appears comfortable. He denies any chest pain, fever, chills, lower extremity edema. Past Med Surg Social Fam HX - Past Medical History Medical history: arthritis, CHF, COPD, diabetes, GERD, hyperlipidemia, hypertension Psychiatric history: anxiety, depression - Past Surgical History Additional surgical history: throat surgery - Social History Smoking Status: Former smoker Smokeless Tobacco Status: No Alcohol use: none Drug use: none - Family History Father Living Status: Hx Family Cancer: Yes Mother Living Status: Still Living Hx Family Cardiac Disorders: Yes (Hypertension) Medications and Allergies RX: Lisinopril [Zestril] 5 mg PO DAILY 04/23/16 [History] RX: Metformin HCl [Glucophage] 1,000 mg PO BIDWM 04/23/16 [History] RX: Pravastatin Sodium 10 mg PO HS 04/23/16 [History] RX: Folic Acid 1 mg PO DAILY 12/19/16 [History] RX: Methotrexate Sodium/PF [Methotrexate 50 mg/2 ml Vial] 25 mg SQ FR 12/19/16 [History] Acarbose [Precose] 50 mg PO TIDWM 09/13/18 [History] Acetylcysteine [R-Cwkdfc-r-Cysteine] 600 mg PO TID 09/13/18 [History] Albuterol Neb [Proventil Neb] 2.5 mg IH Q8HR PRN 09/13/18 [History] Aspirin Enteric Coated [Aspirin EC] 81 mg PO DAILY 09/13/18 [History] Glimepiride [Amaryl] 4 mg PO 0800 09/13/18 [History] Ipratropium/Albuterol Neb [Duoneb] 3 ml IH Q6HR 09/13/18 [History] Allergy/AdvReac Type Severity Reaction Status Date / Time Sulfa (Sulfonamide Allergy Rash Verified 06/19/17 10:01 Antibiotics) All Systems: The remainder of the systems were reviewed and are negative - Constitutional Constitutional: no chills, no fatigue, no fever(s), no weakness - Cardiovascular Cardiovascular: no chest pain, no chest pain at rest, no chest pain with activity, no dyspnea, no dyspnea on exertion, no edema, no orthopnea - Respiratory Respiratory: cough, dyspnea, wheezing, no chest congestion - Gastrointestinal Gastrointestinal: no abdominal pain, no hematemesis, no hematochezia - Musculoskeletal Musculoskeletal: no weakness, no numbness, no stiffness, no tingling - Integumentary Integumentary: no erythema, no rash - Neurological Neurological: no numbness, no syncope, no tremor(s), no vertigo - Psychiatric Psychiatric: no anxiety, no depression - Hematologic/Lymphatic Hematologic/Lymphatic: no easy bleeding, no easy bruising Physical Examination Vital Signs: Vital Signs, Last 4 Hours Temp Pulse Resp BP Pulse Ox 09/14/18 11:07 16 89 09/14/18 10:54 100.3 F H 99 18 132/74 91 General appearance: no acute distress, alert Eyes: nonicteric ENT: oropharynx moist Neck: supple Auscultation: bilateral: wheezes (Bilateral lower lung lobes) Cardiovascular: regular rate and rhythm Gastrointestinal: normoactive bowel sounds, soft, non-tender, non-distended Integumentary: normal Extremities: no cyanosis, no edema Musculoskeletal: no deformities normal mental status, pupils equal and round mood appropriate, affect normal Results - Laboratory Findings CBC and BMP: 09/14/18 01:05 09/14/18 01:05 ABG ABG pH 7.43 pH Units (7.32-7.45) 09/13/18 19:37 ABG pCO2 37 mmHg (35-45) 09/13/18 19:37 ABG pO2 93 mmHg (85-104) 09/13/18 19:37 ABG O2 Saturation 98 % (95-98) 09/13/18 19:37 PT/INR, D-dimer PT 13.8 Seconds (9.4-12.1) H 09/13/18 11:48 Abnormal lab findings: Abnormal lab results RBC 3.38 M/mcL (4.19-5.50) L 09/14/18 01:05 Hgb 10.8 g/dL (12.9-16.9) L 09/14/18 01:05 Hct 32.0 % (37.5-50.1) L 09/14/18 01:05 Lymphocytes # 0.5 K/mcL (0.6-4.6) L 09/14/18 01:05 PT 13.8 Seconds (9.4-12.1) H 09/13/18 11:48 Sodium 135 mEq/L (136-145) L 09/14/18 01:05 Glucose 373 mg/dL (70-105) H 09/14/18 01:05 POC Glucose 356 mg/dL (70-99) H 09/14/18 07:05 Hemoglobin A1c 8.4 % (-5.6) H 09/14/18 01:05 Calcium 8.4 mg/dL (8.6-10.3) L 09/14/18 01:05 Phosphorus 2.5 mg/dL (2.7-4.5) L 09/14/18 01:05 Troponin I 0.04 ng/mL (< 0.04) H* 09/13/18 23:47 B-Natriuretic Peptide 170 pg/mL (Less than 100) H 09/13/18 11:48 HDL Cholesterol 26 mg/dL (40-59) L 09/14/18 01:05 Ur Specific [place] 1.029 (1.010-1.025) H 09/13/18 11:39 Urine Protein 100 mg/dL (Neg-Trace) H 09/13/18 11:39 Urine Ketones 40 mg/dL (Negative) H 09/13/18 11:39 Urine Blood Moderate (Negative) H 09/13/18 11:39 Urine Microscopic WBC 3-5 per hpf (0-3) H 09/13/18 11:39 Ur Squamous Epith Cells Many per lpf (None-Few) H 09/13/18 11:39 Human Metapneumovir PCR DETECTED (Not Detect) A 09/14/18 00:20 - Microbiology Findings Microbiology Findings: Microbiology, Last 48 Hours 09/13/18 12:17 Blood Culture - Preliminary Peripheral Venipuncture Culture is incubating and being continuously monitored for growth. Final report to follow. 09/13/18 12:23 Blood Culture - Preliminary Peripheral Venipuncture Culture is incubating and being continuously monitored for growth. Final report to follow. 09/13/18 12:00 Influenza Types A,B Antigen - Final Nasopharyngeal - Clinical Findings Intake & Output: Intake & Output 09/13/18 09/14/18 09/14/18 23:59 07:59 15:59 Intake Total 500 / 500 280 / 280 Output Total 300 / 300 800 / 800 Balance 200 / 200 -800 / -800 280 / 280 Weight 105 kg Consult Discharge Plan - Plan Referrals: Dione Choi MD [Primary Care Provider] - 09/21/18 9:00 am (Please follow up as schedule...) <Maura Temple - Last Filed: 09/14/18 15:56> Date of Encounter: 09/14/18 All Systems: The remainder of the systems were reviewed and are negative Physical Examination Vital Signs: Vital Signs, Last 4 Hours Resp Pulse Ox 09/14/18 15:12 16 93 Results - Laboratory Findings CBC and BMP: 09/14/18 01:05 09/14/18 01:05 ABG ABG pH 7.43 pH Units (7.32-7.45) 09/13/18 19:37 ABG pCO2 37 mmHg (35-45) 09/13/18 19:37 ABG pO2 93 mmHg (85-104) 09/13/18 19:37 ABG O2 Saturation 98 % (95-98) 09/13/18 19:37 PT/INR, D-dimer PT 13.8 Seconds (9.4-12.1) H 09/13/18 11:48 Abnormal lab findings: Abnormal lab results RBC 3.38 M/mcL (4.19-5.50) L 09/14/18 01:05 Hgb 10.8 g/dL (12.9-16.9) L 09/14/18 01:05 Hct 32.0 % (37.5-50.1) L 09/14/18 01:05 Lymphocytes # 0.5 K/mcL (0.6-4.6) L 09/14/18 01:05 PT 13.8 Seconds (9.4-12.1) H 09/13/18 11:48 Sodium 135 mEq/L (136-145) L 09/14/18 01:05 Glucose 373 mg/dL (70-105) H 09/14/18 01:05 POC Glucose 394 mg/dL (70-99) H 09/14/18 11:00 Hemoglobin A1c 8.4 % (-5.6) H 09/14/18 01:05 Calcium 8.4 mg/dL (8.6-10.3) L 09/14/18 01:05 Phosphorus 2.5 mg/dL (2.7-4.5) L 09/14/18 01:05 Troponin I 0.04 ng/mL (< 0.04) H* 09/13/18 23:47 B-Natriuretic Peptide 170 pg/mL (Less than 100) H 09/13/18 11:48 HDL Cholesterol 26 mg/dL (40-59) L 09/14/18 01:05 Ur Specific [place] 1.029 (1.010-1.025) H 09/13/18 11:39 Urine Protein 100 mg/dL (Neg-Trace) H 09/13/18 11:39 Urine Ketones 40 mg/dL (Negative) H 09/13/18 11:39 Urine Blood Moderate (Negative) H 09/13/18 11:39 Urine Microscopic WBC 3-5 per hpf (0-3) H 09/13/18 11:39 Ur Squamous Epith Cells Many per lpf (None-Few) H 09/13/18 11:39 Human Metapneumovir PCR DETECTED (Not Detect) A 09/14/18 00:20 - Microbiology Findings Microbiology Findings: Microbiology, Last 48 Hours 09/14/18 11:30 Legionella Antigen - Final Urine,Clean Catch Streptococcus pneumoniae Antigen (M - Final 09/13/18 12:17 Blood Culture - Preliminary Peripheral Venipuncture Culture is incubating and being continuously monitored for growth. Final report to follow. 09/13/18 12:23 Blood Culture - Preliminary Peripheral Venipuncture Culture is incubating and being continuously monitored for growth. Final report to follow. 09/13/18 12:00 Influenza Types A,B Antigen - Final Nasopharyngeal - Clinical Findings Intake & Output: Intake & Output 09/13/18 09/14/18 09/14/18 23:59 07:59 15:59 Intake Total 500 / 500 280 / 280 Output Total 300 / 300 800 / 800 Balance 200 / 200 -800 / -800 280 / 280 Weight 105 kg - Attending Attestation I examined this patient and my medical decision-making was reviewed with the [facility]. I agree with the documented findings, disposition and treatment plan as described except to the extent set forth below. Patient seen and examined. Labs, radiology, chart personally reviewed. Agree with resident's history and physical, assessment, plan with following comments: HEALTHCARE INTERPRETER: Patient follows commands, Pulmonary: Acceptable oxygenation and ventilation Clearly patient has evidence of acute respiratory failure hypoxemic in nature secondary to the viral infection and he is being treated appropriately. The viral nature antibiotics can be stopped shortly and he will need outpatient follow-up. At this time treating came in the floor based on CURB 65 scoring system is appropriate. Obviously patient will need follow-up as outpatient. Thank you for consultation and noninvasive ventilation would be next If his condition worsened.
--- NOTE | 2018-09-14 16:10 | Electrocardiograph Report ---
[employer] Test Date: 2018-09-13 Pat Name: Ray Felipe Department: EXAMC1 Room: 2A15 Gender: M Paid Intern: : 1950 Requested By: Elmo Fuchs Order Number: [id number] Reading MD: Zachery Goddard Measurements Intervals [place] Rate: 89 P: 61 IA: 122 QRS: 82 QRSD: 93 T: 9 QT: 365 QTc: 445 Interpretive Statements Sinus rhythm Ventricular trigeminy Borderline right axis deviation Borderline repolarization abnormality Inferior ST changes consider ischemia,correlate clinically Electronically Signed On 09-14-2018 16:08:30 EST by Zachery Goddard
[2018-09-14] MEDS: Acetaminophen 325 MG TABLET PO PRN (22:01)
[2018-09-14] MEDS: Insulin DETEMIR 100 UNIT/ML X5UNITS SQ SCH (22:02)
[2018-09-15] MEDS: MethylPREDNISolone 40 MG/ML VIAL IVP SCH ×3 (00:04→17:03)
[2018-09-15] MEDS: Ipratropium/Albuterol Neb 3 ML IH SCH ×6 (03:29→23:28)
[2018-09-15 05:09] LABS: Alanine Aminotransferase 18 Units/L (7-52); Albumin 3.1 g/dL (3.5-5.7); Albumin/Globulin Ratio 0.9 (1.1-2.2); Alkaline Phosphatase 45 Units/L (34-104); Aspartate Amino Transferase 19 Units/L (13-39); BUN/Creatinine Ratio 32 (6-26); Bilirubin,Total 0.3 mg/dL (0.3-1.0); Blood Urea Nitrogen 25 mg/dL (8-23); Carbon Dioxide 29 mEq/L (23-29); Chloride 101 mEq/L (98-107); Globulin 3.4 g/dL (2.4-3.5); Glucose 353 mg/dL (70-105); Osmolality,Calculated 299 (280-300); Phosphorous 3.1 mg/dL (2.7-4.5); Potassium 3.9 mEq/L (3.5-5.1); Sodium 135 mEq/L (136-145); Total Protein 6.5 g/dL (6.4-8.9); eGFR For Non-African Americans > 60 (> 60)
[2018-09-15 05:09] LABS: VBG Ionized Calcium 1.18 mmol/L (1.15-1.35)
[2018-09-15] MEDS: *HR* Heparin 5,000 UNIT/ML VIAL SQ SCH ×3 (05:53→20:20)
[2018-09-15] MEDS: Budesonide/Formoterol 160/4.5 1 PUFF INH IH SCH ×2 (07:21→19:39)
[2018-09-15] MEDS: Insulin LISPRO 300 UNITS/3 ML VIAL SQ SCH ×4 (08:43→22:31)
--- NOTE | 2018-09-15 09:17 | Internal Med Progress Note ---
Hospitalist Progress Note - Encounter Date of Encounter: 09/15/18 Time of Encounter: 09:05 - Subjective Interval History: Patient was seen and examined at bedside. Reports that his respiratory trace status has improved. Continues to have productive cough. He denies chest pain, palpitations, fever, chills. Tolerating by mouth diet. He presented he does not have home oxygen and is inquiring about having home oxygen. QUESTIONS answered - Exam Vitals: Temp Pulse Resp BP Pulse Ox 98.6 F 80 18 142/81 92 09/15/18 06:49 09/15/18 06:49 09/15/18 07:24 09/15/18 06:49 09/15/18 07:24 Exam: General: Patient is alert, oriented, no acute distress, speaks in full sentenc es, on oxygen via nasal cannula Head: atraumatic, normocephalic, Eye: normal appearance, PERRL, no scleral icterus, no conjunctival injection ENT: mucous membranes moist, normal external ear exam Neck: normal inspection, trachea midline, full ROM, no carotid bruits Chest: normal inspection, symmetric chest rise Respiratory: Good respiratory effort. diffuse wheezing in anterior chest (improved) , crackles diffusely in the posterior lung field Cardiovascular: Regular rate and rhythm. s1 and s2 No clicks, rubs, gallops, or murmors. Abdomen: Bowel sounds present normoactive x-4 quadrants. Abdomen is soft, nondistended. no Epigastric tenderness. No guarding or rebound. No organomegaly noted, obese musculoskeletal: Spontaneously moving all extremities. no edema, no calf tenderness Skin: warm, dry, intact. Neuro: Alert and oriented x4. No focal deficit Psych: Patient's affect is normal - Assessment and Plan (1) Multifocal pneumonia Current Visit: Yes Status: Acute Assessment and Plan: Continue with ceftriaxone ( last day on 09/15) and azithromycin Sputum cultures/ blood cx- pending Respiratory viral panel- positive for human metapneumovir Urine antigens- negative Oxygen via nasal cannula to keep sats above 92% CXR from 09/14 with out improvement pulmonology recs appreciated CTPA: IMPRESSION: 1. No evidence of pulmonary embolism 2. Multifocal pneumonia, more severe on the left, with reactive adenopathy (2) Sepsis Current Visit: Yes Status: Acute Assessment and Plan: sepsis ( fever of 103.1, RR 22, hypoxia 81% lactic acid 3) secondary to above management as above (3) Acute exacerbation of chronic obstructive pulmonary disease (COPD) Current Visit: Yes Status: Acute Assessment and Plan: Symbicort Duo nebs every 4 hours as needed Solu-Medrol 125 mg was given in the emergency departmentcontinue with 40 mg every 8 hours as he continues to wheeze which has improved - anticipate changing him to oral steroids on 09/16 Oxygen via nasal cannula to keep saturations above 92% The rest of management as above pulmonology recs appreciated will see if he qualifies for home oxygen ( SW and CM onboard he reports that he does have a cpap however no records showing that he does) PFTs in - Spirometry shows moderate airway obstructive pattern No response to inhaled bronchodilators is seen MVV is decreased. Lung Volumes TLC mildly reduced. Diffusion Capacity is moderately reduced. Flow Volume Loop: Obstructive (4) Acute respiratory failure with hypoxia Current Visit: Yes Status: Acute Assessment and Plan: Acute hypoxic respiratory failure requiring oxygen reports he does not use oxygen at home- will see if he qualifies for oxygen Continuous pulse ox Continue with DuoNeb's Continue with oxygen via nasal cannula to keep sats above 92% CTPA performed in emergency department ruled out PE pulm recs appreciated CTPA: IMPRESSION: 1. No evidence of pulmonary embolism 2. Multifocal pneumonia, more severe on the left, with reactive adenopathy (5) Elevated troponin Current Visit: Yes Status: Acute Assessment and Plan: Elevated troponin most likely secondary to supply versus demand mismatch cannot rule out underlying CAD First troponin was 0.04 x 3 Was given aspirin 325 mg the ED will continue with aspirin 81 mg Lipid panel in the morning continue with statin and SASHA inhibitor- added low dose BB Echocardiogram - LVEF 65% ( full reports below) Cardiac monitoring consider cardiology consultation once Respiratory status has improved ( has EKG abnormalities) will repeat EKG today TTE Impressions: LVEF 65%. Indeterminate diastolic function. Normal right ventricular structure and function. Mild aortic regurgitation. Mild tricuspid regurgitation. Mild pulmonary hypertension. ECG: Sinus rhythm Ventricular trigeminy Borderline right axis deviation Borderline repolarization abnormality Inferior ST changes consider ischemia,correlate clinically (6) Hypertension Current Visit: No Status: Acute Assessment and Plan: Continue home medications if not contraindicated (7) Diabetes Current Visit: No Status: Chronic Assessment and Plan: Hold home oral hypoglycemics started on long acting. insulin sliding scale- changed to medium is as per fingersticks A1c -8.4 (8) DVT prophylaxis Current Visit: No Status: Acute Assessment and Plan: heparin sc (9) Hypophosphatemia Current Visit: Yes Status: Resolved - Summary of Assessment and Plan Summary of Assessment and Plan: anticipate discharge 1-2 days pending improvement in respiratory status, home oxygen and cardiology consultation for elevated troponin and EKG abnormalities - Time Spent with Patient Total time spent is greater than 50% in coordination of care (as documented) at patient's floor/unit and/or counseling patient: Internal Medicine: Result - Labs CBC & Chem 7: 09/14/18 01:05 09/15/18 04:34 Labs: BMP 09/15/18 04:34 Sodium 135 L Potassium 3.9 Chloride 101 Carbon Dioxide 29 BUN 25 H Creatinine 0.79 Glucose 353 H Calcium 9.0 Liver Function 09/15/18 Range/Units 04:34 Total Bilirubin 0.3 (0.3-1.0) mg/dL AST 19 (13-39) Units/L ALT 18 (7-52) Units/L Alkaline Phosphatase 45 (34-104) Units/L Albumin 3.1 L (3.5-5.7) g/dL - ABG Interpretation ABG results: ABG ABG pH 7.43 pH Units (7.32-7.45) 09/13/18 19:37 ABG pCO2 37 mmHg (35-45) 09/13/18 19:37 ABG pO2 93 mmHg (85-104) 09/13/18 19:37 ABG O2 Saturation 98 % (95-98) 09/13/18 19:37 PT/INR, D-dimer PT 13.8 Seconds (9.4-12.1) H 09/13/18 11:48 - Impressions Impressions Echocardiogram 09/14/18 09:47 Impressions: LVEF 65%. Indeterminate diastolic function. Normal right ventricular structure and function. Mild aortic regurgitation. Mild tricuspid regurgitation. Mild pulmonary hypertension. Left Ventricular Wall Motion: Rest Echo Findings All wall segments showed normal motion. Findings: Study Quality * Technically adequate exam. ECG Findings * Normal sinus rhythm. Left Ventricle * LVEF 65%. * Indeterminate diastolic function. * Normal LV chamber size, wall thickness and function. Right Ventricle * Normal right ventricular structure and function. Left Atrium * Moderately dilated left atrium. Right Atrium * Normal right atrial size. Aortic Valve * Aortic valve not well visualized. * No aortic stenosis. * Mild aortic regurgitation. Mitral Valve * Normal mitral valve structure. * No mitral stenosis. * Trace mitral regurgitation. Tricuspid Valve * Mild tricuspid regurgitation. * Normal tricuspid valve structure. Pulmonic Valve * Pulmonic valve is not well visualized. * No pulmonic stenosis. * No pulmonic regurgitation. Pulmonary Artery * Pulmonary artery not well visualized. Aorta * Normally sized aortic root. Pericardium * There is no pericardial effusion present. Interatrial Septum * No evidence of PFO by color Doppler. IVC * The IVC is not well evaluated. 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
[2018-09-15] MEDS ORDERED: Water for inj. (sterile) 20 ML 20 ML IV ONE (10:51)
[2018-09-15] MEDS: *HR* Acetylcysteine 20% 600 MG/3 ML ORAL SYRINGE PO SCH ×3 (11:22→20:20)
[2018-09-15] MEDS: Aspirin 81 MG TAB.CHEW PO SCH (11:22)
[2018-09-15] MEDS: Folic Acid 1 MG TABLET PO SCH (11:23)
[2018-09-15] MEDS: Azithromycin 500 MG in D5% in Water 250 ML IVPB SCH (11:24)
[2018-09-15] MEDS: cefTRIAXone 2,000 MG in Water for inj. (sterile) 20 ML 20 ML IVP SCH (11:25)
--- NOTE | 2018-09-15 13:10 | Pulmonology Progress Note ---
<Lulu Glass - Last Filed: 09/15/18 16:39> Date of Encounter: 09/15/18 Time of Encounter: 09:15 Assessment and Plan (1) Acute respiratory failure with hypoxia Current Visit: Yes Status: Acute Likely breath has significantly improved. He is now requiring 3 L of oxygen. Does have human human metapneumoviral infection. Can consider stopping ceftriaxone given his infection is viral. Continue DuoNeb, Symbicort, azithromycin Titrate Solu-Medrol, decreased to 40 Q12 starting tomorrow (2) Acute exacerbation of chronic obstructive pulmonary disease (COPD) Current Visit: Yes Status: Acute History of COPD is on DuoNeb at home and is compliant with his inhaler. Continues to diffuse wheezing Solu medrol dose changed starting tomorrow, 40 mg Q12 Also continue bronchodilator Continue DuoNeb and azithromycin. Subjective Interval history: Mr. Felipe was seen at bedside this morning. He reported his shortness of breath has significantly improved since admission. His cough has also improved. He denies fever, chills, nausea, emesis, chest pain or abdominal pain. Objective PUL Vital signs: Last Vital Signs Temp 97.7 F 09/15/18 10:56 Pulse 84 09/15/18 10:56 Resp 22 09/15/18 11:58 BP 145/66 09/15/18 10:56 Pulse Ox 90 09/15/18 11:58 General appearance: no acute distress, alert Eyes: nonicteric ENT: oropharynx moist Neck: supple Auscultation: bilateral: clear Cardiovascular: regular rate and rhythm Gastrointestinal: normoactive bowel sounds, soft, non-tender, non-distended Integumentary: normal Extremities: no cyanosis, no edema Musculoskeletal: no deformities Gait: normal gait normal mental status, pupils equal and round mood appropriate, affect normal Results - Laboratory Findings CBC and BMP: 09/14/18 01:05 09/15/18 04:34 ABG ABG pH 7.43 pH Units (7.32-7.45) 09/13/18 19:37 ABG pCO2 37 mmHg (35-45) 09/13/18 19:37 ABG pO2 93 mmHg (85-104) 09/13/18 19:37 ABG O2 Saturation 98 % (95-98) 09/13/18 19:37 PT/INR, D-dimer PT 13.8 Seconds (9.4-12.1) H 09/13/18 11:48 Abnormal lab findings: Abnormal lab results RBC 3.38 M/mcL (4.19-5.50) L 09/14/18 01:05 Hgb 10.8 g/dL (12.9-16.9) L 09/14/18 01:05 Hct 32.0 % (37.5-50.1) L 09/14/18 01:05 Lymphocytes # 0.5 K/mcL (0.6-4.6) L 09/14/18 01:05 PT 13.8 Seconds (9.4-12.1) H 09/13/18 11:48 Sodium 135 mEq/L (136-145) L 09/15/18 04:34 BUN 25 mg/dL (8-23) H 09/15/18 04:34 BUN/Creatinine Ratio 32 (6-26) H 09/15/18 04:34 Glucose 353 mg/dL (70-105) H 09/15/18 04:34 POC Glucose 368 mg/dL (70-99) H 09/15/18 07:00 Hemoglobin A1c 8.4 % (-5.6) H 09/14/18 01:05 Troponin I 0.04 ng/mL (< 0.04) H* 09/13/18 23:47 B-Natriuretic Peptide 170 pg/mL (Less than 100) H 09/13/18 11:48 Albumin 3.1 g/dL (3.5-5.7) L 09/15/18 04:34 Albumin/Globulin Ratio 0.9 (1.1-2.2) L 09/15/18 04:34 HDL Cholesterol 26 mg/dL (40-59) L 09/14/18 01:05 Ur Specific [place] 1.029 (1.010-1.025) H 09/13/18 11:39 Urine Protein 100 mg/dL (Neg-Trace) H 09/13/18 11:39 Urine Ketones 40 mg/dL (Negative) H 09/13/18 11:39 Urine Blood Moderate (Negative) H 09/13/18 11:39 Urine Microscopic WBC 3-5 per hpf (0-3) H 09/13/18 11:39 Ur Squamous Epith Cells Many per lpf (None-Few) H 09/13/18 11:39 Human Metapneumovir PCR DETECTED (Not Detect) A 09/14/18 00:20 - Microbiology Findings Microbiology Findings: Microbiology, Last 48 Hours 09/14/18 11:30 Legionella Antigen - Final Urine,Clean Catch Streptococcus pneumoniae Antigen (M - Final 09/13/18 12:17 Blood Culture - Preliminary Peripheral Venipuncture Culture is incubating and being continuously monitored for growth. Final report to follow. 09/13/18 12:23 Blood Culture - Preliminary Peripheral Venipuncture Culture is incubating and being continuously monitored for growth. Final report to follow. 09/13/18 12:00 Influenza Types A,B Antigen - Final Nasopharyngeal - Clinical Findings Intake & Output: Intake & Output 09/14/18 09/15/18 09/15/18 23:59 07:59 15:59 Intake Total 300 / 300 Output Total 0 / 0 Balance 300 / 300 Weight 104.9 kg Consult Discharge Plan - Plan Referrals: Dione Choi MD [Primary Care Provider] - 09/21/18 9:00 am (Please follow up as schedule...) <Maura Temple M - Last Filed: 09/15/18 16:48> Date of Encounter: 09/15/18 Objective PUL Vital signs: Last Vital Signs Temp 97.7 F 09/15/18 10:56 Pulse 84 09/15/18 10:56 Resp 22 09/15/18 15:32 BP 145/66 09/15/18 10:56 Pulse Ox 90 09/15/18 15:32 Results - Laboratory Findings CBC and BMP: 09/14/18 01:05 09/15/18 04:34 ABG ABG pH 7.43 pH Units (7.32-7.45) 09/13/18 19:37 ABG pCO2 37 mmHg (35-45) 09/13/18 19:37 ABG pO2 93 mmHg (85-104) 09/13/18 19:37 ABG O2 Saturation 98 % (95-98) 09/13/18 19:37 PT/INR, D-dimer PT 13.8 Seconds (9.4-12.1) H 09/13/18 11:48 Abnormal lab findings: Abnormal lab results RBC 3.38 M/mcL (4.19-5.50) L 09/14/18 01:05 Hgb 10.8 g/dL (12.9-16.9) L 09/14/18 01:05 Hct 32.0 % (37.5-50.1) L 09/14/18 01:05 Lymphocytes # 0.5 K/mcL (0.6-4.6) L 09/14/18 01:05 PT 13.8 Seconds (9.4-12.1) H 09/13/18 11:48 Sodium 135 mEq/L (136-145) L 09/15/18 04:34 BUN 25 mg/dL (8-23) H 09/15/18 04:34 BUN/Creatinine Ratio 32 (6-26) H 09/15/18 04:34 Glucose 353 mg/dL (70-105) H 09/15/18 04:34 POC Glucose 356 mg/dL (70-99) H 09/15/18 11:00 Hemoglobin A1c 8.4 % (-5.6) H 09/14/18 01:05 Troponin I 0.04 ng/mL (< 0.04) H* 09/13/18 23:47 B-Natriuretic Peptide 170 pg/mL (Less than 100) H 09/13/18 11:48 Albumin 3.1 g/dL (3.5-5.7) L 09/15/18 04:34 Albumin/Globulin Ratio 0.9 (1.1-2.2) L 09/15/18 04:34 HDL Cholesterol 26 mg/dL (40-59) L 09/14/18 01:05 Ur Specific [place] 1.029 (1.010-1.025) H 09/13/18 11:39 Urine Protein 100 mg/dL (Neg-Trace) H 09/13/18 11:39 Urine Ketones 40 mg/dL (Negative) H 09/13/18 11:39 Urine Blood Moderate (Negative) H 09/13/18 11:39 Urine Microscopic WBC 3-5 per hpf (0-3) H 09/13/18 11:39 Ur Squamous Epith Cells Many per lpf (None-Few) H 09/13/18 11:39 Human Metapneumovir PCR DETECTED (Not Detect) A 09/14/18 00:20 - Microbiology Findings Microbiology Findings: Microbiology, Last 48 Hours 09/14/18 11:30 Legionella Antigen - Final Urine,Clean Catch Streptococcus pneumoniae Antigen (M - Final 09/13/18 12:17 Blood Culture - Preliminary Peripheral Venipuncture Culture is incubating and being continuously monitored for growth. Final report to follow. 09/13/18 12:23 Blood Culture - Preliminary Peripheral Venipuncture Culture is incubating and being continuously monitored for growth. Final report to follow. 09/13/18 12:00 Influenza Types A,B Antigen - Final Nasopharyngeal - Clinical Findings Intake & Output: Intake & Output 09/15/18 09/15/18 09/15/18 07:59 15:59 23:59 Intake Total 550 / 550 Output Total 0 / 0 Balance 550 / 550 Weight 104.9 kg - Attending Attestation I examined this patient and my medical decision-making was reviewed with the Resident Physician. I agree with the documented findings, disposition and treatment plan as described except to the extent set forth below. Patient seen and examined. Labs, radiology, chart personally reviewed. 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 He will need at least and chest x-ray in about 6-8 weeks to ensure improvement and thank you for consultation please call for any questions.
[2018-09-15] MEDS: Insulin DETEMIR 100 UNIT/ML X5UNITS SQ SCH (22:31)
[2018-09-16] MEDS: MethylPREDNISolone 40 MG/ML VIAL IVP SCH ×3 (00:51→17:15)
[2018-09-16] MEDS: Ipratropium/Albuterol Neb 3 ML IH SCH ×6 (04:21→23:52)
[2018-09-16 04:40] LABS: Hematocrit 30.8 % (37.5-50.1); Hemoglobin 10.1 g/dL (12.9-16.9); Mean Corpuscular HGB Conc 32.8 g/dL (31.6-35.5); Mean Corpuscular Hemoglobin 31.4 pg (28.0-33.3); Mean Corpuscular Volume 95.7 fL (83.0-100.0); Mean Platelet Volume 11.5 fL (9.4-12.4); Platelet Count 192 K/mcL (140-400); Red Blood Count 3.22 M/mcL (4.19-5.50); Red Cell Distribution Width 14.3 % (11.5-14.5)
[2018-09-16 05:01] LABS: BUN/Creatinine Ratio 35 (6-26); Blood Urea Nitrogen 30 mg/dL (8-23); Calcium 9.2 mg/dL (8.6-10.3); Carbon Dioxide 32 mEq/L (23-29); Chloride 99 mEq/L (98-107); Glucose 349 mg/dL (70-105); Osmolality,Calculated 298 (280-300); Potassium 4.5 mEq/L (3.5-5.1); Sodium 134 mEq/L (136-145); eGFR For Non-African Americans > 60 (> 60)
[2018-09-16] MEDS: *HR* Heparin 5,000 UNIT/ML VIAL SQ SCH ×3 (05:48→20:52)
[2018-09-16] MEDS: Budesonide/Formoterol 160/4.5 1 PUFF INH IH SCH ×2 (07:29→19:26)
[2018-09-16] MEDS: Insulin LISPRO 300 UNITS/3 ML VIAL SQ SCH ×4 (07:59→21:48)
[2018-09-16] MEDS: Aspirin 81 MG TAB.CHEW PO SCH (08:00)
[2018-09-16] MEDS: Azithromycin 250 MG TABLET PO SCH (08:00)
[2018-09-16] MEDS: Folic Acid 1 MG TABLET PO SCH (08:00)
[2018-09-16] MEDS: cefTRIAXone 2,000 MG in Water for inj. (sterile) 20 ML 20 ML IVP SCH (08:01)
[2018-09-16] MEDS: *HR* Acetylcysteine 20% 600 MG/3 ML ORAL SYRINGE PO SCH ×3 (08:01→20:52)
--- NOTE | 2018-09-16 15:10 | Electrocardiograph Report ---
[address] [address] Test Date: 2018-09-15 Pat Name: Ray Felipe Department: 112 Room: 2A15 Gender: M Recreational Aide: : 1950 Requested By: Mary Lou Powers Order Number: [id number] Reading MD: Justina Caldwell Measurements Intervals [place] Rate: 86 P: 102 GA: 118 QRS: 70 QRSD: 97 T: 70 QT: 383 QTc: 426 Interpretive Statements SINUS RHYTHM WITH SHORT GA INTERVAL WITH OCCASIONAL VENTRICULAR PREMATURE COMPLEXES WITH OCCASIONAL SUPRAVENTRICULAR PREMATURE Electronically Signed On 09-16-2018 15:08:32 EST by Justina Caldwell
--- NOTE | 2018-09-16 18:08 | Internal Med Progress Note ---
Hospitalist Progress Note - Encounter Date of Encounter: 09/16/18 Time of Encounter: 10:00 - Subjective Interval History: 68 y/o male w/ hx of COPD admitted w/ sepsis secondary to Multifocal PNA and acute COPD exacerbation. Pt seen and examined at bedside. Pt reports he feels much better, SOB has improved. No events overnight - Exam Vitals: Temp Pulse Resp BP Pulse Ox 97.8 F 78 20 150/77 88 09/16/18 16:16 09/16/18 16:16 09/16/18 16:16 09/16/18 16:16 09/16/18 16:16 Exam: General: Patient is alert, oriented, no acute distress HEENT: atraumatic, normocephalic, EOMI, PERRL, MMM Neck: normal inspection, trachea midline, full ROM Chest: normal inspection, symmetric chest rise Respiratory: Good respiratory effortt, faint wheezes at basese Cardiovascular: Regular rate and rhythm. s1 and s2 Abdomen: Bowel sounds present normoactive x-4 quadrants. Abdomen is soft, nondistended MSK: Spontaneously moving all extremities. no edema, no calf tenderness Skin: warm, dry, intact. Neuro: Alert and oriented x4. No focal deficit - Summary of Assessment and Plan Summary of Assessment and Plan: Multifocal pneumonia - off ceftriaxone, c/w azithromycin - Bld blood cx- NGTD Respiratory viral panel- positive for human metapneumovir Urine antigens- negative Oxygen via nasal cannula to keep sats above 90% Sepsis secondary to above -c/w management as above Acute exacerbation of chronic obstructive pulmonary disease (COPD) Symbicort Duo nebs every 4 hours as needed Solu-Medrol down to 40mg q12, will change to PO pippa pulmonology recs appreciated - will ambulate in am to eval for home oxygen Hypoxia, Abdominal EKG, mild bump in trop above baseline - Pt has a hx of CAD, mild bump in trop likely secondary to demand - troponin was 0.04 x 3 - Inital EKG showed some minimal ST deps, repeated yesterday now resolved. Changes likely secondary to hypoxia - Outpt f/u w/ Cardio - c/w ASA, statin and SASHA inhibitor- added low dose BB - Echocardiogram - LVEF 65% ( full reports below) - c/w Cardiac monitoring Hypertension - Continue home medications if not contraindicated Diabetes - c/w Lantus (Inc to 15) and insulin sliding scale - c/w A1c -8.4 DVT prophylaxis heparin sc - Time Spent with Patient Total time spent is greater than 50% in coordination of care (as documented) at patient's floor/unit and/or counseling patient: Plan of Care Discussed with: patient Internal Medicine: Result - Labs CBC & Chem 7: 09/16/18 04:10 09/16/18 04:10 Labs: Short CBC 09/16/18 Range/Units 04:10 WBC 5.7 (4.3-11.1) K/mcL Hgb 10.1 L (12.9-16.9) g/dL Hct 30.8 L (37.5-50.1) % Plt Count 192 (140-400) K/mcL BMP 09/16/18 04:10 Sodium 134 L Potassium 4.5 Chloride 99 Carbon Dioxide 32 H BUN 30 H Creatinine 0.85 Glucose 349 H Calcium 9.2 - ABG Interpretation ABG results: ABG ABG pH 7.43 pH Units (7.32-7.45) 09/13/18 19:37 ABG pCO2 37 mmHg (35-45) 09/13/18 19:37 ABG pO2 93 mmHg (85-104) 09/13/18 19:37 ABG O2 Saturation 98 % (95-98) 09/13/18 19:37 PT/INR, D-dimer PT 13.8 Seconds (9.4-12.1) H 09/13/18 11:48 Consult Discharge Plan - Plan Referrals: Dione Choi MD [Primary Care Provider] - 09/21/18 9:00 am (Please follow up as schedule...)
[2018-09-16] MEDS ORDERED: Insulin DETEMIR 100 UNIT/ML X5UNITS SQ SCH (21:00)
[2018-09-17] MEDS: Ipratropium/Albuterol Neb 3 ML IH SCH ×3 (03:36→11:06)
[2018-09-17] MEDS: *HR* Heparin 5,000 UNIT/ML VIAL SQ SCH (06:56)
[2018-09-17] MEDS: MethylPREDNISolone 40 MG/ML VIAL IVP SCH (06:56)
[2018-09-17] MEDS: Budesonide/Formoterol 160/4.5 1 PUFF INH IH SCH (07:26)
[2018-09-17] MEDS: Aspirin 81 MG TAB.CHEW PO SCH (07:37)
[2018-09-17] MEDS: Azithromycin 250 MG TABLET PO SCH (07:37)
[2018-09-17] MEDS: Folic Acid 1 MG TABLET PO SCH (07:37)
[2018-09-17] MEDS: *HR* Acetylcysteine 20% 600 MG/3 ML ORAL SYRINGE PO SCH (07:38)
[2018-09-17] MEDS: Insulin LISPRO 300 UNITS/3 ML VIAL SQ SCH ×2 (07:39→12:52)
[2018-09-17 07:52] LABS: Hematocrit 30.8 % (37.5-50.1); Hemoglobin 10.2 g/dL (12.9-16.9); Mean Corpuscular HGB Conc 33.1 g/dL (31.6-35.5); Mean Corpuscular Hemoglobin 31.9 pg (28.0-33.3); Mean Corpuscular Volume 96.3 fL (83.0-100.0); Mean Platelet Volume 11.1 fL (9.4-12.4); Nucleated Red Blood Cells 0.4 /100 WBC (0); Platelet Count 250 K/mcL (140-400); Red Cell Distribution Width 14.3 % (11.5-14.5)
[2018-09-17 08:05] LABS: BUN/Creatinine Ratio 35 (6-26); Blood Urea Nitrogen 29 mg/dL (8-23); Calcium 9.2 mg/dL (8.6-10.3); Carbon Dioxide 29 mEq/L (23-29); Chloride 101 mEq/L (98-107); Glucose 357 mg/dL (70-105); Magnesium 2.3 mg/dL (1.6-2.6); Osmolality,Calculated 300 (280-300); Potassium 4.5 mEq/L (3.5-5.1); Sodium 135 mEq/L (136-145); eGFR For Non-African Americans > 60 (> 60)
[2018-09-17 09:02] LABS: Monocytes # 0.1 K/mcL (0.0-1.3); Neutrophils # 5.7 K/mcL (1.6-8.9); Platelet Estimate Normal (Normal); Reactive Lymphocytes Present (Not Present)
--- NOTE | 2018-09-17 11:27 | Discharge Summary ---
- NOTES TO OUTPATIENT PROVIDER Notes to Outpatient Provider: Need outpatient follow up with Cardiology Orders not resulted at time of discharge: Pending orders 09/13/18 12:17 Culture,Blood [BC] Stat 09/13/18 15:56 Culture,Sputum with Gram Stain [RM] Stat 09/13/18 17:48 ECG 12 lead ECG [ECG] Routine 09/18/18 04:00 Basic Metabolic Panel AM 0400 Complete Blood Count [HEME] AM 0400 Magnesium AM 0400 Phosphorous AM 0400 09/19/18 04:00 Basic Metabolic Panel AM 0400 Complete Blood Count [HEME] AM 0400 Magnesium AM 0400 Phosphorous AM 0400 09/20/18 04:00 Basic Metabolic Panel AM 0400 Complete Blood Count [HEME] AM 0400 Magnesium AM 0400 Phosphorous AM 0400 Date of Encounter: 09/17/18 Time of Encounter: 11:25 - Discharge Diagnosis (1) Acute exacerbation of chronic obstructive pulmonary disease (COPD) Priority: Secondary Status: Acute (2) Acute respiratory failure with hypoxia Priority: Primary Status: Acute (3) Elevated troponin Priority: Secondary Status: Acute (4) Multifocal pneumonia Priority: Secondary Status: Acute (5) Sepsis Priority: Secondary Status: Acute Qualifiers: Sepsis type: sepsis due to unspecified organism Qualified Code(s): A41.9 - Sepsis, unspecified organism (6) Hypertension Priority: Secondary Status: Acute Qualifiers: Hypertension type: essential hypertension Qualified Code(s): I10 - Essential (primary) hypertension (7) Diabetes Priority: Secondary Status: Chronic Qualifiers: Diabetes mellitus type: type 2 Diabetes mellitus skilled nursing insulin use: without skilled nursing use Diabetes mellitus complication status: without complication Qualified Code(s): E11.9 - Type 2 diabetes mellitus without complications Hospital course: Mr. Felipe is a 68 year old male with history of COPD, diabetes and hypertension presented to the emergency department with complaint of shortness of breath and cough, patient admitted for Sepsis secondary to Multifocal pneumonia seen on CT scan, COPD exacerbation and Hypoxia. Pt started on antibiotics for CAP, IV Solumedrol and placed on supplemental oxygen. Flu neg, blood blood cx- NGTD, Respiratory viral panel- positive for human metapneumovir. Pulmonary was also consulted to guide therapy. Pt also placed of duonebs treatments and improved significantly. Pt also noted to have minimal ST depressions in septal/lateral leads on initial admission and a mild bump in troponin likely secondary to demand ischemia in the setting of sepsis and hypoxia. With clinical improvement EKG was repeated [facility] showed resolution of EKG changes. Pt continued to ASA, statin and BB was added. 2D Echo done showed preserved EF. 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 Patient also noted to still require oxygen despite clinical improvement thus will be discharge on home oxygen until complete resolution of symptoms. Pt medically stable for discharge. - Time Spent with Patient Total time spent providing and/or coordinating discharge services: - Discharge Medications Prescriptions: New Budesonide/Formoterol 160/4.5 [Symbicort 160/4.5] 2 puff IH BIDR #1 inh levoFLOXacin [Levaquin] 750 mg PO DAILY #7 tablet Metoprolol [Lopressor] 12.5 mg PO BID tablet predniSONE [PredniSONE] 10 mg PO DAILY #30 tablet Continue Lisinopril [Zestril] 5 mg PO DAILY Pravastatin Sodium 10 mg PO HS Metformin HCl [Glucophage] 1,000 mg PO BIDWM Folic Acid 1 mg PO DAILY Methotrexate Sodium/PF [Methotrexate 50 mg/2 ml Vial] 25 mg SQ FR Acarbose [Precose] 50 mg PO TIDWM Acetylcysteine [C-Ijqlsh-y-Cysteine] 600 mg PO TID Albuterol Neb [Proventil Neb] 2.5 mg IH Q8HR PRN PRN Reason: Shortness Of Breath/Wheezing Aspirin Enteric Coated [Aspirin EC] 81 mg PO DAILY Glimepiride [Amaryl] 4 mg PO 0800 Ipratropium/Albuterol Neb [Duoneb] 3 ml IH Q6HR Home Medications: Lisinopril [Zestril] 5 mg PO DAILY 04/23/16 [History] Metformin HCl [Glucophage] 1,000 mg PO BIDWM 04/23/16 [History] Pravastatin Sodium 10 mg PO HS 04/23/16 [History] Folic Acid 1 mg PO DAILY 12/19/16 [History] Methotrexate Sodium/PF [Methotrexate 50 mg/2 ml Vial] 25 mg SQ FR 12/19/16 [History] Acarbose [Precose] 50 mg PO TIDWM 09/13/18 [History] Acetylcysteine [G-Hfiyha-t-Cysteine] 600 mg PO TID 09/13/18 [History] Albuterol Neb [Proventil Neb] 2.5 mg IH Q8HR PRN 09/13/18 [History] Aspirin Enteric Coated [Aspirin EC] 81 mg PO DAILY 09/13/18 [History] Glimepiride [Amaryl] 4 mg PO 0800 09/13/18 [History] Ipratropium/Albuterol Neb [Duoneb] 3 ml IH Q6HR 09/13/18 [History] Budesonide/Formoterol 160/4.5 [Symbicort 160/4.5] 2 puff IH BIDR #1 inh 09/17/18 [Rx] Metoprolol [Lopressor] 12.5 mg PO BID tablet 09/17/18 [Rx] levoFLOXacin [Levaquin] 750 mg PO DAILY #7 tablet 09/17/18 [Rx] predniSONE [PredniSONE] 10 mg PO DAILY #30 tablet 09/17/18 [Rx] Allergies/Adverse Reactions: Allergy/AdvReac Type Severity Reaction Status Date / Time Sulfa (Sulfonamide Allergy Rash Verified 06/19/17 10:01 Antibiotics) Date of admission: 09/14/18 12:28 Primary care physician: Dione Choi MD Consults: 09/14/18 09:32 Consult to Pulmonology [CONS] Routine Consulting Provider: [facility] [place] Reason for Consult: multifocal pneumnia, acute hypoxic respiratory failure and COPD exacerbation with worseing infilterates Call Completed: Yes 09/14/18 09:47 Consult to Nurse Navigator [CONS] Routine Comment: copd, pn - Constitutional Vitals: Temp Pulse Resp BP Pulse Ox 97.9 F 65 16 136/76 95 09/17/18 06:50 09/17/18 06:50 09/17/18 11:06 09/17/18 06:50 09/17/18 11:06 General appearance: Present: A&O X 3, no acute distress Exam: General: Patient is alert, oriented, no acute distress HEENT: atraumatic, normocephalic, EOMI, PERRL, MMM Neck: normal inspection, trachea midline, full ROM Chest: normal inspection, symmetric chest rise Respiratory: Good respiratory effortt, faint wheezes at bases Cardiovascular: Regular rate and rhythm. s1 and s2 Abdomen: Bowel sounds present normoactive x-4 quadrants. Abdomen is soft, nondistended MSK: Spontaneously moving all extremities. no edema, no calf tenderness Skin: warm, dry, intact. Neuro: Alert and oriented x4. No focal deficit - Patient Status Disposition: Home, Self-Care Condition: Fair Overall status at discharge: patient is progressing back to baseline - Discharge Instructions Instructions: Acute Respiratory Distress Syndrome (DC) Follow Up With: Dione Choi MD [Primary Care Provider] - 09/21/18 9:00 am (Please follow up as schedule...) Cardiology [Other] - Diet and Activity Activity: increase activity as tolerated Diet: diabetic diet, low salt diet
[2018-09-17 12:16] VITALS: BP 158/80
[2018-09-17] MEDS ORDERED: Insulin LISPRO 300 UNITS/3 ML VIAL SQ ONE (14:14)
== END 2018-09-17 15:45 | disposition home or self-care (01) | DRG 871 ==
LOC: EMEROOARM 11:08 → 2ANU 11:08 → SUATTDRO 09-14 12:28
PROVIDERS: ADMIT Internal Medicine; ATTEND Hospitalist

== ENCOUNTER 2020-07-17 11:34 | Observation (INO) ==
[2020-07-17 12:14] LABS: Basophils % 0.2 %; Eosinophils % 0.2 %; Hemoglobin 11.1 g/dL (12.9-16.9); Immature Granulocytes % 0.4 % (0-4); Lymphocytes # 0.9 K/mcL (0.6-4.6); Lymphocytes % 18.3 %; Mean Corpuscular HGB Conc 31.7 g/dL (31.6-35.5); Mean Corpuscular Hemoglobin 30.1 pg (28.0-33.3); Mean Corpuscular Volume 94.9 fL (83.0-100.0); Mean Platelet Volume 10.4 fL (9.4-12.4); Monocytes # 0.5 K/mcL (0.0-1.3); Monocytes % 9.3 %; Neutrophils # 3.6 K/mcL (1.6-8.9); Platelet Count 215 K/mcL (140-400); Red Blood Count 3.69 M/mcL (4.19-5.50); Red Cell Distribution Width 14.2 % (11.5-14.5); Segmented Neutrophils % 71.6 %; White Blood Count 5.1 K/mcL (4.3-11.1)
[2020-07-17 12:33] LABS: Alanine Aminotransferase 16 Units/L (7-52); Albumin 3.6 g/dL (3.5-5.7); Albumin/Globulin Ratio 0.8 (1.1-2.2); Alkaline Phosphatase 58 Units/L (34-104); Aspartate Amino Transferase 20 Units/L (13-39); BUN/Creatinine Ratio 19 (6-26); Bilirubin,Total 0.4 mg/dL (0.3-1.0); Blood Urea Nitrogen 18 mg/dL (8-23); Calcium 9.3 mg/dL (8.6-10.3); Carbon Dioxide 25 mEq/L (23-29); Chloride 100 mEq/L (98-107); Globulin 4.3 g/dL (2.4-3.5); Glucose 185 mg/dL (70-105); Osmolality,Calculated 291 (280-300); Sodium 137 mEq/L (136-145); Total Protein 7.9 g/dL (6.4-8.9); Troponin I < 0.03 ng/mL (< 0.04); eGFR For African Americans > 60 (> 60); eGFR For Non-African Americans > 60 (> 60)
[2020-07-17 12:57] LABS: Adenovirus Not Detected (Not Detect); Bordetella Pertussis Not Detected (Not Detect); Chlamydophila pneumoniae Not Detected (Not Detect); Coronavirus 229E Not Detected (Not Detect); Coronavirus HKU1 Not Detected (Not Detect); Coronavirus NL63 Not Detected (Not Detect); Coronavirus OC43 Not Detected (Not Detect); Human Metapneumovirus Not Detected (Not Detect); Human Rhinovirus/Enterovirus Not Detected (Not Detect); Influenza A Subtype 2009 H1 Not Detected (Not Detect); Influenza B Not Detected (Not Detect); Mycoplasma pneumoniae Not Detected (Not Detect); Parainfluenza Virus 1 Not Detected (Not Detect); Parainfluenza Virus 2 Not Detected (Not Detect); Parainfluenza Virus 3 Not Detected (Not Detect); Parainfluenza Virus 4 Not Detected (Not Detect); Respiratory Syncytial Virus Not Detected (Not Detect)
[2020-07-17 12:58] LABS: SARS-CoV-2 DETECTED (Not Detect)
[2020-07-17] MEDS ORDERED: cefTRIAXone 1,000 MG in Water for inj. (sterile) 10 ML IVP ONE (13:02)
[2020-07-17] MEDS ORDERED: Dexamethasone 4 MG/ML VIAL IVP ONE (13:02)
[2020-07-17] MEDS ORDERED: Azithromycin 500 MG in 0.9 % Sodium Chloride 250 ML IVPB ONE (13:03)
[2020-07-17] MEDS ORDERED: Dextrose Gel 15 GM/37.5 ML TUBE PO PRN ×2 (13:29)
[2020-07-17] MEDS ORDERED: Naloxone 0.4 MG/ML INJ IVP PRN (13:29)
[2020-07-17] MEDS ORDERED: Acetaminophen 325 MG TABLET PO PRN (13:29)
[2020-07-17] MEDS ORDERED: Ondansetron 4 MG/2 ML VIAL IVP PRN (13:29)
[2020-07-17] MEDS ORDERED: *HR* Dextrose 50 % in Water (Vial) 50 ML VIAL IVP PRN (13:29)
[2020-07-17] MEDS ORDERED: D5% in Water 1,000 ML IVC PRN (13:29)
[2020-07-17 13:47] LABS: C-Reactive Protein 87 mg/L (Less than 10)
[2020-07-17] MEDS ORDERED: Benzonatate 100 MG CAPSULE PO PRN (14:26)
[2020-07-17] MEDS: Insulin LISPRO 300 UNITS/3 ML VIAL SUBQ SCH (17:32)
[2020-07-17] MEDS: *HR* Heparin 5,000 UNIT/ML VIAL SQ SCH (17:33)
[2020-07-17] MEDS: Budesonide/Formoterol 160/4.5 1 PUFF INH IH SCH (21:45)
[2020-07-17] MEDS ORDERED: Insulin LISPRO 300 UNITS/3 ML VIAL SUBQ SCH (22:15)
[2020-07-18 03:24] LABS: Hematocrit 34.2 % (37.5-50.1); Hemoglobin 10.7 g/dL (12.9-16.9); Immature Granulocytes % 0.7 % (0-4); Lymphocytes # 0.8 K/mcL (0.6-4.6); Lymphocytes % 18.5 %; Mean Corpuscular HGB Conc 31.3 g/dL (31.6-35.5); Mean Corpuscular Hemoglobin 29.8 pg (28.0-33.3); Mean Corpuscular Volume 95.3 fL (83.0-100.0); Mean Platelet Volume 10.5 fL (9.4-12.4); Monocytes # 0.4 K/mcL (0.0-1.3); Monocytes % 9.4 %; Neutrophils # 2.9 K/mcL (1.6-8.9); Platelet Count 194 K/mcL (140-400); Red Blood Count 3.59 M/mcL (4.19-5.50); Red Cell Distribution Width 13.7 % (11.5-14.5); Segmented Neutrophils % 71.4 %; White Blood Count 4.1 K/mcL (4.3-11.1)
[2020-07-18 03:40] LABS: BUN/Creatinine Ratio 22 (6-26); Blood Urea Nitrogen 17 mg/dL (8-23); Carbon Dioxide 25 mEq/L (23-29); Chloride 102 mEq/L (98-107); Glucose 229 mg/dL (70-105); Magnesium 1.9 mg/dL (1.6-2.6); Osmolality,Calculated 291 (280-300); Potassium 4.4 mEq/L (3.5-5.1); Sodium 136 mEq/L (136-145); eGFR For African Americans > 60 (> 60); eGFR For Non-African Americans > 60 (> 60)
[2020-07-18] MEDS: *HR* Heparin 5,000 UNIT/ML VIAL SQ SCH (04:49)
[2020-07-18] MEDS ORDERED: Metoprolol XL (24 HR) Succ 25 MG TAB.ER.24H PO SCH (09:00)
[2020-07-18] MEDS ORDERED: lisinopriL 5 MG TABLET PO SCH (09:00)
[2020-07-18] MEDS ORDERED: Dexamethasone 4 MG/ML VIAL IVP SCH (09:00)
[2020-07-18] MEDS ORDERED: Furosemide 40 MG TABLET PO SCH (09:00)
[2020-07-18] MEDS ORDERED: Folic Acid 1 MG TABLET PO SCH (09:00)
[2020-07-18] MEDS: Insulin LISPRO 300 UNITS/3 ML VIAL SUBQ SCH ×2 (09:28→12:09)
[2020-07-18] MEDS: Budesonide/Formoterol 160/4.5 1 PUFF INH IH SCH (10:37)
[2020-07-18 12:34] VITALS: BP 150/97
[2020-07-18] MEDS ORDERED: Azithromycin 500 MG in 0.9 % Sodium Chloride 250 ML IVPB SCH (13:00)
== END 2020-07-18 15:29 | disposition home or self-care (01) ==
LOC: EMEROOARM 11:34 → 2NENU 11:34 → SUATTDRO 13:36 → 2NENU 14:21
PROVIDERS: ADMIT General Practice; ATTEND Family Medicine

== ENCOUNTER 2020-07-22 21:43 | Inpatient (IN) ==
[2020-07-22] MEDS ORDERED: Dexamethasone 4 MG/ML VIAL IVP ONE (22:02)
[2020-07-22 22:22] LABS: ABG Base Excess -1 mEq/L (-2 to 3); ABG HCO3 23 mEq/L (21-27); ABG Oxygen Saturation 89 % (95-98); ABG PCO2 35 mmHg (35-45); ABG PH 7.43 pH Units (7.32-7.45); ABG PO2 54 mmHg (85-104); ABG TCO2 24 mEq/L (20-26)
[2020-07-22 23:31] LABS: Basophils % 0.2 %; Hematocrit 35.6 % (37.5-50.1); Hemoglobin 11.3 g/dL (12.9-16.9); Immature Granulocytes % 1.2 % (0-4); Lymphocytes # 0.5 K/mcL (0.6-4.6); Lymphocytes % 4.6 %; Mean Corpuscular HGB Conc 31.7 g/dL (31.6-35.5); Mean Corpuscular Hemoglobin 29.6 pg (28.0-33.3); Mean Corpuscular Volume 93.2 fL (83.0-100.0); Mean Platelet Volume 12.3 fL (9.4-12.4); Monocytes # 0.4 K/mcL (0.0-1.3); Monocytes % 3.5 %; Neutrophils # 9.2 K/mcL (1.6-8.9); Platelet Count 127 K/mcL (140-400); Red Blood Count 3.82 M/mcL (4.19-5.50); Red Cell Distribution Width 14.1 % (11.5-14.5); Segmented Neutrophils % 90.5 %; White Blood Count 10.2 K/mcL (4.3-11.1)
[2020-07-22 23:57] LABS: Alanine Aminotransferase 13 Units/L (7-52); Albumin 2.9 g/dL (3.5-5.7); Albumin/Globulin Ratio 0.8 (1.1-2.2); Alkaline Phosphatase 49 Units/L (34-104); Aspartate Amino Transferase 21 Units/L (13-39); BUN/Creatinine Ratio 29 (6-26); Bilirubin,Indirect 0.3 mg/dL (0.0-1.0); Bilirubin,Total 0.3 mg/dL (0.3-1.0); Blood Urea Nitrogen 30 mg/dL (8-23); C-Reactive Protein 129 mg/L (Less than 10); Calcium 8.7 mg/dL (8.6-10.3); Carbon Dioxide 21 mEq/L (23-29); Chloride 101 mEq/L (98-107); Globulin 3.6 g/dL (2.4-3.5); Glucose 322 mg/dL (70-105); Lactate Dehydrogenase 341 Units/L (140-271); Magnesium 1.7 mg/dL (1.6-2.6); Osmolality,Calculated 295 (280-300); Phosphorous 2.6 mg/dL (2.7-4.5); Potassium 4.7 mEq/L (3.5-5.1); Sodium 133 mEq/L (136-145); Total Protein 6.5 g/dL (6.4-8.9); Troponin I 0.08 ng/mL (< 0.04); eGFR For African Americans > 60 (> 60); eGFR For Non-African Americans > 60 (> 60)
[2020-07-23 00:05] LABS: Anisocytosis 1+ (Not Present); Platelet Estimate Slight Decrease (Normal)
[2020-07-23] MEDS ORDERED: Aspirin 325 MG TABLET PO ONE (00:11)
[2020-07-23 00:18] LABS: Ferritin 230 ng/mL (20-250)
[2020-07-23] MEDS ORDERED: Naloxone 0.4 MG/ML INJ IVP PRN (01:34)
[2020-07-23] MEDS ORDERED: Ondansetron 4 MG/2 ML VIAL IVP PRN (01:34)
[2020-07-23] MEDS ORDERED: Benzonatate 100 MG CAPSULE PO PRN (01:37)
[2020-07-23] MEDS ORDERED: Acetaminophen 325 MG TABLET PO PRN (01:37)
[2020-07-23] MEDS ORDERED: D5% in Water 1,000 ML IVC PRN (01:59)
[2020-07-23] MEDS ORDERED: *HR* Dextrose 50 % in Water (Vial) 50 ML VIAL IVP PRN (01:59)
[2020-07-23] MEDS ORDERED: Dextrose Gel 15 GM/37.5 ML TUBE PO PRN ×2 (01:59)
[2020-07-23 03:13] LABS: INR 1.2; Prothrombin Time 13.5 Seconds (9.4-12.1)
[2020-07-23 03:15] LABS: Activated Partial Thrombo Time 26.2 Seconds (26.0-36.0)
[2020-07-23 03:22] LABS: BUN/Creatinine Ratio 29 (6-26); Blood Urea Nitrogen 27 mg/dL (8-23); Calcium 8.9 mg/dL (8.6-10.3); Carbon Dioxide 23 mEq/L (23-29); Chloride 100 mEq/L (98-107); Glucose 338 mg/dL (70-105); Magnesium 1.9 mg/dL (1.6-2.6); Osmolality,Calculated 294 (280-300); Phosphorous 3.5 mg/dL (2.7-4.5); Potassium 4.5 mEq/L (3.5-5.1); Sodium 133 mEq/L (136-145); eGFR For African Americans > 60 (> 60); eGFR For Non-African Americans > 60 (> 60)
[2020-07-23] MEDS ORDERED: Isovue-370 500 ML BOTTLE IVP ONE (03:34)
[2020-07-23 03:53] LABS: Troponin I 0.18 ng/mL (< 0.04)
[2020-07-23] MEDS: Doxycycline 100 MG in 0.9 % Sodium Chloride Mini Bag 100 ML IVPB SCH ×2 (05:45→18:47)
[2020-07-23] MEDS ORDERED: *HR* Enoxaparin 40 MG/0.4 ML SYRINGE SQ SCH (06:00)
[2020-07-23 07:20] LABS: Basophils % 0.1 %; Hematocrit 32.6 % (37.5-50.1); Hemoglobin 10.2 g/dL (12.9-16.9); Immature Granulocytes % 1.3 % (0-4); Lymphocytes # 0.5 K/mcL (0.6-4.6); Lymphocytes % 5.7 %; Mean Corpuscular HGB Conc 31.3 g/dL (31.6-35.5); Mean Corpuscular Hemoglobin 28.8 pg (28.0-33.3); Mean Corpuscular Volume 92.1 fL (83.0-100.0); Mean Platelet Volume 10.7 fL (9.4-12.4); Monocytes # 0.2 K/mcL (0.0-1.3); Monocytes % 2.4 %; Neutrophils # 7.2 K/mcL (1.6-8.9); Platelet Count 273 K/mcL (140-400); Red Blood Count 3.54 M/mcL (4.19-5.50); Red Cell Distribution Width 13.9 % (11.5-14.5); Segmented Neutrophils % 90.5 %; White Blood Count 7.9 K/mcL (4.3-11.1)
[2020-07-23] MEDS: Furosemide 40 MG/4 ML VIAL IVP SCH (07:33)
[2020-07-23] MEDS: Insulin LISPRO 300 UNITS/3 ML VIAL SUBQ SCH ×3 (07:34→17:00)
[2020-07-23] MEDS: Piperacillin/Tazobactam 3.375 GM in 0.9 % Sodium Chloride Mini Bag 100 ML IVPB SCH ×3 (07:34→22:50)
[2020-07-23] MEDS: Dexamethasone 4 MG/ML VIAL IVP SCH (07:35)
[2020-07-23] MEDS: Ipratropium 1 PUFF INHALER IH SCH ×4 (11:50→23:30)
[2020-07-23] MEDS ORDERED: *HR* Heparin 5,000 UNIT/ML VIAL IVP ONE (17:37)
[2020-07-23] MEDS ORDERED: *HR* Heparin 5,000 UNIT/ML VIAL IVP PRN ×2 (17:37)
[2020-07-23 18:17] LABS: Heparin anti-factor XA UFH 0.07 IU/mL (0.30-0.70); INR 1.1; Prothrombin Time 13.2 Seconds (9.4-12.1)
[2020-07-23] MEDS ORDERED: Insulin DETEMIR 100 UNIT/ML X5UNITS SUBQ SCH (21:00)
[2020-07-23] MEDS: *HR* Acetylcysteine 20% 600 MG/3 ML ORAL SYRINGE PO SCH (21:21)
[2020-07-23] MEDS: Heparin 25,000UNIT/250ML 1/2NS 25,000 UNIT/250 ML IV.SOLN IVC SCH (21:22)
[2020-07-24] MEDS: Ipratropium 1 PUFF INHALER IH SCH ×6 (03:40→23:11)
[2020-07-24] MEDS: Doxycycline 100 MG in 0.9 % Sodium Chloride Mini Bag 100 ML IVPB SCH (04:56)
[2020-07-24 06:13] LABS: Basophils % 0.5 %; Hematocrit 32.6 % (37.5-50.1); Hemoglobin 10.1 g/dL (12.9-16.9); Immature Granulocytes % 1.2 % (0-4); Lymphocytes # 0.8 K/mcL (0.6-4.6); Lymphocytes % 11.5 %; Mean Corpuscular Hemoglobin 29.4 pg (28.0-33.3); Mean Platelet Volume 12.2 fL (9.4-12.4); Monocytes # 0.3 K/mcL (0.0-1.3); Monocytes % 4.5 %; Neutrophils # 5.4 K/mcL (1.6-8.9); Platelet Count 186 K/mcL (140-400); Red Blood Count 3.43 M/mcL (4.19-5.50); Red Cell Distribution Width 14.2 % (11.5-14.5); Segmented Neutrophils % 82.3 %; White Blood Count 6.6 K/mcL (4.3-11.1)
[2020-07-24] MEDS: Aspirin Enteric Coated 81 MG Tablet PO SCH (07:31)
[2020-07-24] MEDS: Folic Acid 1 MG TABLET PO SCH (07:31)
[2020-07-24] MEDS: Piperacillin/Tazobactam 3.375 GM in 0.9 % Sodium Chloride Mini Bag 100 ML IVPB SCH ×3 (07:31→23:45)
[2020-07-24] MEDS: Metoprolol XL (24 HR) Succ 25 MG TAB.ER.24H PO SCH (07:32)
[2020-07-24] MEDS: lisinopriL 5 MG TABLET PO SCH (07:32)
[2020-07-24] MEDS: (Tiotropium Br/Olodaterol Hcl [Stiolto Respimat Inhal IH SCH (07:32)
[2020-07-24] MEDS: Furosemide 40 MG/4 ML VIAL IVP SCH ×3 (07:34→19:34)
[2020-07-24] MEDS: Dexamethasone 4 MG/ML VIAL IVP SCH (07:35)
[2020-07-24] MEDS: Insulin LISPRO 300 UNITS/3 ML VIAL SUBQ SCH ×3 (07:53→16:39)
[2020-07-24 08:33] LABS: ABG Base Excess 2 mEq/L (-2 to 3); ABG HCO3 27 mEq/L (21-27); ABG Oxygen Saturation 85 % (95-98); ABG PCO2 42 mmHg (35-45); ABG PH 7.42 pH Units (7.32-7.45); ABG PO2 49 mmHg (85-104); ABG TCO2 28 mEq/L (20-26)
[2020-07-24 09:00] LABS: Alanine Aminotransferase 14 Units/L (7-52); Albumin 3.1 g/dL (3.5-5.7); Albumin/Globulin Ratio 0.8 (1.1-2.2); Alkaline Phosphatase 50 Units/L (34-104); Aspartate Amino Transferase 14 Units/L (13-39); BUN/Creatinine Ratio 31 (6-26); Bilirubin,Total 0.3 mg/dL (0.3-1.0); Blood Urea Nitrogen 26 mg/dL (8-23); Calcium 9.5 mg/dL (8.6-10.3); Carbon Dioxide 27 mEq/L (23-29); Chloride 98 mEq/L (98-107); Globulin 4.1 g/dL (2.4-3.5); Glucose 341 mg/dL (70-105); Osmolality,Calculated 300 (280-300); Potassium 3.7 mEq/L (3.5-5.1); Sodium 136 mEq/L (136-145); Total Protein 7.2 g/dL (6.4-8.9); Troponin I 0.03 ng/mL (< 0.04); eGFR For African Americans > 60 (> 60); eGFR For Non-African Americans > 60 (> 60)
[2020-07-24] MEDS ORDERED: Dexamethasone Sodium Phos/PF 10 MG/ML VIAL IVP SCH (09:00)
[2020-07-24] MEDS: *HR* Acetylcysteine 20% 600 MG/3 ML ORAL SYRINGE PO SCH ×3 (09:44→19:34)
[2020-07-24] MEDS ORDERED: Perflutren Lipid Microsphere 1.3 ML in 0.9 % Sodium Chloride 8.7 ML IVP PRN (12:25)
[2020-07-24] MEDS: Heparin 25,000UNIT/250ML 1/2NS 25,000 UNIT/250 ML IV.SOLN IVC SCH (14:20)
[2020-07-24] MEDS: Insulin DETEMIR 100 UNIT/ML X5UNITS SUBQ SCH ×2 (16:51→19:34)
[2020-07-24] MEDS ORDERED: Insulin DETEMIR 100 UNIT/ML X5UNITS SUBQ SCH (21:00)
[2020-07-25] MEDS: Ipratropium 1 PUFF INHALER IH SCH ×6 (03:58→22:53)
[2020-07-25 04:46] LABS: Alanine Aminotransferase 15 Units/L (7-52); Albumin/Globulin Ratio 0.8 (1.1-2.2); Alkaline Phosphatase 50 Units/L (34-104); Aspartate Amino Transferase 15 Units/L (13-39); BUN/Creatinine Ratio 28 (6-26); Bilirubin,Total 0.4 mg/dL (0.3-1.0); Blood Urea Nitrogen 26 mg/dL (8-23); Calcium 9.2 mg/dL (8.6-10.3); Carbon Dioxide 31 mEq/L (23-29); Chloride 97 mEq/L (98-107); Globulin 3.7 g/dL (2.4-3.5); Glucose 288 mg/dL (70-105); Osmolality,Calculated 299 (280-300); Potassium 3.7 mEq/L (3.5-5.1); Sodium 137 mEq/L (136-145); Total Protein 6.7 g/dL (6.4-8.9); eGFR For African Americans > 60 (> 60); eGFR For Non-African Americans > 60 (> 60)
[2020-07-25 04:58] LABS: Basophils % 0.4 %; Eosinophils % 0.1 %; Hematocrit 33.4 % (37.5-50.1); Hemoglobin 10.5 g/dL (12.9-16.9); Immature Granulocytes % 2.1 % (0-4); Lymphocytes % 9.7 %; Mean Corpuscular HGB Conc 31.4 g/dL (31.6-35.5); Mean Corpuscular Hemoglobin 28.7 pg (28.0-33.3); Mean Corpuscular Volume 91.3 fL (83.0-100.0); Mean Platelet Volume 10.5 fL (9.4-12.4); Monocytes # 0.5 K/mcL (0.0-1.3); Monocytes % 4.7 %; Neutrophils # 8.9 K/mcL (1.6-8.9); Nucleated Red Blood Cells 0.2 /100 WBC (0); Platelet Count 333 K/mcL (140-400); Red Blood Count 3.66 M/mcL (4.19-5.50); Red Cell Distribution Width 13.9 % (11.5-14.5); White Blood Count 10.7 K/mcL (4.3-11.1)
[2020-07-25] MEDS: Heparin 25,000UNIT/250ML 1/2NS 25,000 UNIT/250 ML IV.SOLN IVC SCH ×2 (05:46→23:40)
[2020-07-25] MEDS: Piperacillin/Tazobactam 3.375 GM in 0.9 % Sodium Chloride Mini Bag 100 ML IVPB SCH ×3 (08:42→23:54)
[2020-07-25] MEDS: Aspirin Enteric Coated 81 MG Tablet PO SCH (08:43)
[2020-07-25] MEDS: Furosemide 40 MG/4 ML VIAL IVP SCH ×2 (08:43→19:58)
[2020-07-25] MEDS: lisinopriL 5 MG TABLET PO SCH (08:43)
[2020-07-25] MEDS: Metoprolol XL (24 HR) Succ 25 MG TAB.ER.24H PO SCH (08:43)
[2020-07-25] MEDS: Folic Acid 1 MG TABLET PO SCH (08:43)
[2020-07-25] MEDS ORDERED: Dexamethasone Sodium Phos/PF 10 MG/ML VIAL ONE (08:47)
[2020-07-25] MEDS: Insulin DETEMIR 100 UNIT/ML X5UNITS SUBQ SCH (08:48)
[2020-07-25] MEDS: Insulin LISPRO 300 UNITS/3 ML VIAL SUBQ SCH ×4 (08:50→19:56)
[2020-07-25] MEDS: Dexamethasone Sodium Phos/PF 10 MG/ML VIAL IVP SCH (09:14)
[2020-07-25] MEDS: (Tiotropium Br/Olodaterol Hcl [Stiolto Respimat Inhal IH SCH (11:51)
[2020-07-25] MEDS: *HR* Acetylcysteine 20% 600 MG/3 ML ORAL SYRINGE PO SCH ×3 (12:06→19:57)
[2020-07-25] MEDS ORDERED: Insulin LISPRO 300 UNITS/3 ML VIAL SUBQ SCH (17:00)
[2020-07-25] MEDS: Budesonide/Formoterol 160/4.5 1 PUFF INH IH SCH (20:10)
[2020-07-25] MEDS ORDERED: Insulin DETEMIR 100 UNIT/ML X5UNITS SUBQ SCH (21:00)
[2020-07-26 02:29] LABS: Basophils % 0.2 %; Hematocrit 33.9 % (37.5-50.1); Hemoglobin 10.9 g/dL (12.9-16.9); Immature Granulocytes % 3.2 % (0-4); Lymphocytes # 0.7 K/mcL (0.6-4.6); Lymphocytes % 6.6 %; Mean Corpuscular HGB Conc 32.2 g/dL (31.6-35.5); Mean Corpuscular Hemoglobin 29.4 pg (28.0-33.3); Mean Corpuscular Volume 91.4 fL (83.0-100.0); Mean Platelet Volume 10.3 fL (9.4-12.4); Monocytes # 0.5 K/mcL (0.0-1.3); Monocytes % 4.8 %; Neutrophils # 8.4 K/mcL (1.6-8.9); Nucleated Red Blood Cells 0.2 /100 WBC (0); Platelet Count 346 K/mcL (140-400); Red Blood Count 3.71 M/mcL (4.19-5.50); Red Cell Distribution Width 13.7 % (11.5-14.5); Segmented Neutrophils % 85.2 %; White Blood Count 9.8 K/mcL (4.3-11.1)
[2020-07-26 02:51] LABS: Alanine Aminotransferase 18 Units/L (7-52); Albumin 3.1 g/dL (3.5-5.7); Albumin/Globulin Ratio 0.8 (1.1-2.2); Alkaline Phosphatase 52 Units/L (34-104); Aspartate Amino Transferase 15 Units/L (13-39); BUN/Creatinine Ratio 34 (6-26); Bilirubin,Total 0.3 mg/dL (0.3-1.0); Blood Urea Nitrogen 31 mg/dL (8-23); C-Reactive Protein 61 mg/L (Less than 10); Calcium 9.4 mg/dL (8.6-10.3); Carbon Dioxide 28 mEq/L (23-29); Chloride 95 mEq/L (98-107); Glucose 345 mg/dL (70-105); Lactate Dehydrogenase 182 Units/L (140-271); Magnesium 1.7 mg/dL (1.6-2.6); Osmolality,Calculated 298 (280-300); Phosphorous 4.1 mg/dL (2.7-4.5); Potassium 3.9 mEq/L (3.5-5.1); Sodium 134 mEq/L (136-145); Total Protein 7.1 g/dL (6.4-8.9); eGFR For African Americans > 60 (> 60); eGFR For Non-African Americans > 60 (> 60)
[2020-07-26 03:08] LABS: Ferritin 244 ng/mL (20-250)
[2020-07-26] MEDS: Ipratropium 1 PUFF INHALER IH SCH ×7 (03:57→23:10)
[2020-07-26] MEDS ORDERED: *HR* Enoxaparin 40 MG/0.4 ML SYRINGE SQ SCH (06:00)
[2020-07-26] MEDS: Budesonide/Formoterol 160/4.5 1 PUFF INH IH SCH ×2 (07:25→19:45)
[2020-07-26 08:06] LABS: ABG Base Excess 6 mEq/L (-2 to 3); ABG HCO3 31 mEq/L (21-27); ABG Oxygen Saturation 91 % (95-98); ABG PCO2 47 mmHg (35-45); ABG PH 7.44 pH Units (7.32-7.45); ABG PO2 60 mmHg (85-104); ABG TCO2 33 mEq/L (20-26)
[2020-07-26] MEDS: Piperacillin/Tazobactam 3.375 GM in 0.9 % Sodium Chloride Mini Bag 100 ML IVPB SCH ×2 (08:17→16:26)
[2020-07-26] MEDS: *HR* Enoxaparin 40 MG/0.4 ML SYRINGE SQ SCH ×2 (08:18→21:04)
[2020-07-26] MEDS: Dexamethasone Sodium Phos/PF 10 MG/ML VIAL IVP SCH (08:19)
[2020-07-26] MEDS: Furosemide 40 MG/4 ML VIAL IVP SCH ×2 (08:19→20:36)
[2020-07-26] MEDS: Aspirin Enteric Coated 81 MG Tablet PO SCH (08:20)
[2020-07-26] MEDS: *HR* Acetylcysteine 20% 600 MG/3 ML ORAL SYRINGE PO SCH ×3 (08:20→20:36)
[2020-07-26] MEDS: Folic Acid 1 MG TABLET PO SCH (08:20)
[2020-07-26] MEDS: Metoprolol XL (24 HR) Succ 25 MG TAB.ER.24H PO SCH (08:20)
[2020-07-26] MEDS: lisinopriL 20 MG TABLET PO SCH (08:20)
[2020-07-26] MEDS: Insulin LISPRO 300 UNITS/3 ML VIAL SUBQ SCH ×7 (08:21→20:50)
[2020-07-26 08:43] LABS: Estimated Average Glucose 214 mg/dl; Hemoglobin A1C 9.1 %
[2020-07-26] MEDS ORDERED: Pantoprazole 40 MG VIAL IVP SCH (09:00)
[2020-07-26] MEDS: Insulin DETEMIR 100 UNIT/ML X5UNITS SUBQ SCH ×2 (09:17→20:50)
[2020-07-26] MEDS ORDERED: MOM Conc 10 ML UD.LIQ PO ONE (12:58)
[2020-07-27] MEDS: Piperacillin/Tazobactam 3.375 GM in 0.9 % Sodium Chloride Mini Bag 100 ML IVPB SCH ×3 (00:06→15:06)
[2020-07-27 03:20] LABS: Basophils % 0.3 %; Hematocrit 33.9 % (37.5-50.1); Hemoglobin 10.9 g/dL (12.9-16.9); Immature Granulocytes % 2.5 % (0-4); Lymphocytes # 1.1 K/mcL (0.6-4.6); Lymphocytes % 7.3 %; Mean Corpuscular HGB Conc 32.2 g/dL (31.6-35.5); Mean Corpuscular Hemoglobin 28.9 pg (28.0-33.3); Mean Corpuscular Volume 89.9 fL (83.0-100.0); Mean Platelet Volume 10.6 fL (9.4-12.4); Monocytes # 0.9 K/mcL (0.0-1.3); Monocytes % 5.9 %; Neutrophils # 12.3 K/mcL (1.6-8.9); Platelet Count 370 K/mcL (140-400); Red Blood Count 3.77 M/mcL (4.19-5.50); Red Cell Distribution Width 13.8 % (11.5-14.5); White Blood Count 14.6 K/mcL (4.3-11.1)
[2020-07-27] MEDS: Ipratropium 1 PUFF INHALER IH SCH ×6 (03:41→23:47)
[2020-07-27 04:23] LABS: Alanine Aminotransferase 24 Units/L (7-52); Albumin/Globulin Ratio 0.8 (1.1-2.2); Alkaline Phosphatase 52 Units/L (34-104); Aspartate Amino Transferase 19 Units/L (13-39); BUN/Creatinine Ratio 38 (6-26); Bilirubin,Total 0.4 mg/dL (0.3-1.0); Blood Urea Nitrogen 43 mg/dL (8-23); C-Reactive Protein 32 mg/L (Less than 10); Calcium 9.6 mg/dL (8.6-10.3); Carbon Dioxide 31 mEq/L (23-29); Chloride 93 mEq/L (98-107); Glucose 285 mg/dL (70-105); Lactate Dehydrogenase 181 Units/L (140-271); Magnesium 2.2 mg/dL (1.6-2.6); Osmolality,Calculated 299 (280-300); Phosphorous 4.2 mg/dL (2.7-4.5); Potassium 4.2 mEq/L (3.5-5.1); Sodium 134 mEq/L (136-145); eGFR For African Americans > 60 (> 60); eGFR For Non-African Americans > 60 (> 60)
[2020-07-27 04:42] LABS: Ferritin 245 ng/mL (20-250)
[2020-07-27] MEDS: Furosemide 40 MG/4 ML VIAL IVP SCH ×2 (07:58→20:12)
[2020-07-27] MEDS: Insulin DETEMIR 100 UNIT/ML X5UNITS SUBQ SCH ×2 (07:59→20:13)
[2020-07-27] MEDS: *HR* Acetylcysteine 20% 600 MG/3 ML ORAL SYRINGE PO SCH ×3 (08:00→20:11)
[2020-07-27] MEDS: *HR* Enoxaparin 40 MG/0.4 ML SYRINGE SQ SCH ×2 (08:00→20:13)
[2020-07-27] MEDS: Folic Acid 1 MG TABLET PO SCH (08:00)
[2020-07-27] MEDS: Aspirin Enteric Coated 81 MG Tablet PO SCH (08:00)
[2020-07-27] MEDS: lisinopriL 20 MG TABLET PO SCH (08:00)
[2020-07-27] MEDS: Metoprolol XL (24 HR) Succ 25 MG TAB.ER.24H PO SCH (08:00)
[2020-07-27] MEDS: Dexamethasone Sodium Phos/PF 10 MG/ML VIAL IVP SCH (08:01)
[2020-07-27] MEDS: Insulin LISPRO 300 UNITS/3 ML VIAL SUBQ SCH ×7 (08:03→20:12)
[2020-07-27] MEDS: Budesonide/Formoterol 160/4.5 1 PUFF INH IH SCH ×2 (08:11→19:54)
[2020-07-27] MEDS: Multivit/Ca/Min/Fe/FA 1 TAB TABLET PO SCH (09:27)
[2020-07-27] MEDS ORDERED: MOM Conc 10 ML UD.LIQ PO ONE (12:58)
[2020-07-27] MEDS ORDERED: traZODone 50 MG TABLET PO PRN (17:15)
[2020-07-27] MEDS: Saline Nasal Spray 44 ML BOTTLE NS SCH ×3 (17:42→21:33)
[2020-07-27] MEDS: polyethylene glycoL 3350 17 GM POWD.PACK PO SCH (20:13)
[2020-07-27] MEDS: Sennosides/Docusate Sodium TABLET PO SCH (20:14)
[2020-07-28] MEDS: Piperacillin/Tazobactam 3.375 GM in 0.9 % Sodium Chloride Mini Bag 100 ML IVPB SCH ×3 (00:28→15:19)
[2020-07-28] MEDS: Saline Nasal Spray 44 ML BOTTLE NS SCH ×10 (00:28→16:32)
[2020-07-28] MEDS: Ipratropium 1 PUFF INHALER IH SCH ×6 (03:32→23:29)
[2020-07-28 05:42] LABS: Basophils # 0.1 K/mcL (0.0-0.2); Basophils % 0.3 %; Hematocrit 37.7 % (37.5-50.1); Immature Granulocytes % 1.9 % (0-4); Lymphocytes # 1.4 K/mcL (0.6-4.6); Lymphocytes % 9.5 %; Mean Corpuscular HGB Conc 31.8 g/dL (31.6-35.5); Mean Corpuscular Hemoglobin 29.3 pg (28.0-33.3); Mean Platelet Volume 10.6 fL (9.4-12.4); Monocytes # 0.9 K/mcL (0.0-1.3); Monocytes % 6.4 %; Platelet Count 359 K/mcL (140-400); Red Cell Distribution Width 13.9 % (11.5-14.5); Segmented Neutrophils % 81.9 %; White Blood Count 14.6 K/mcL (4.3-11.1)
[2020-07-28 08:04] LABS: Alanine Aminotransferase 26 Units/L (7-52); Albumin 3.1 g/dL (3.5-5.7); Albumin/Globulin Ratio 0.8 (1.1-2.2); Alkaline Phosphatase 53 Units/L (34-104); Aspartate Amino Transferase 17 Units/L (13-39); BUN/Creatinine Ratio 41 (6-26); Bilirubin,Total 0.4 mg/dL (0.3-1.0); Blood Urea Nitrogen 45 mg/dL (8-23); C-Reactive Protein 17 mg/L (Less than 10); Calcium 9.6 mg/dL (8.6-10.3); Carbon Dioxide 28 mEq/L (23-29); Chloride 95 mEq/L (98-107); Ferritin 291 ng/mL (20-250); Glucose 229 mg/dL (70-105); Lactate Dehydrogenase 182 Units/L (140-271); Magnesium 2.1 mg/dL (1.6-2.6); Osmolality,Calculated 303 (280-300); Phosphorous 4.5 mg/dL (2.7-4.5); Potassium 3.9 mEq/L (3.5-5.1); Sodium 137 mEq/L (136-145); Total Protein 7.1 g/dL (6.4-8.9); eGFR For African Americans > 60 (> 60); eGFR For Non-African Americans > 60 (> 60)
[2020-07-28] MEDS: Budesonide/Formoterol 160/4.5 1 PUFF INH IH SCH ×2 (08:06→19:38)
[2020-07-28] MEDS: Insulin LISPRO 300 UNITS/3 ML VIAL SUBQ SCH ×6 (09:43→17:06)
[2020-07-28] MEDS: polyethylene glycoL 3350 17 GM POWD.PACK PO SCH ×2 (09:45→20:37)
[2020-07-28] MEDS: lisinopriL 20 MG TABLET PO SCH (09:46)
[2020-07-28] MEDS: Folic Acid 1 MG TABLET PO SCH (09:46)
[2020-07-28] MEDS: Multivit/Ca/Min/Fe/FA 1 TAB TABLET PO SCH (09:46)
[2020-07-28] MEDS: Aspirin Enteric Coated 81 MG Tablet PO SCH (09:46)
[2020-07-28] MEDS: Metoprolol XL (24 HR) Succ 25 MG TAB.ER.24H PO SCH (09:46)
[2020-07-28] MEDS: Dexamethasone Sodium Phos/PF 10 MG/ML VIAL IVP SCH (09:47)
[2020-07-28] MEDS: Sennosides/Docusate Sodium TABLET PO SCH ×2 (09:47→20:37)
[2020-07-28] MEDS: *HR* Acetylcysteine 20% 600 MG/3 ML ORAL SYRINGE PO SCH ×3 (09:47→20:37)
[2020-07-28] MEDS: Furosemide 40 MG/4 ML VIAL IVP SCH (09:47)
[2020-07-28] MEDS: *HR* Enoxaparin 40 MG/0.4 ML SYRINGE SQ SCH ×2 (09:48→20:38)
[2020-07-28] MEDS: Insulin DETEMIR 100 UNIT/ML X5UNITS SUBQ SCH ×2 (09:49→20:41)
[2020-07-29 01:55] LABS: Basophils % 0.2 %; Hematocrit 35.9 % (37.5-50.1); Hemoglobin 11.3 g/dL (12.9-16.9); Immature Granulocytes % 2.3 % (0-4); Lymphocytes # 1.3 K/mcL (0.6-4.6); Lymphocytes % 7.5 %; Mean Corpuscular HGB Conc 31.5 g/dL (31.6-35.5); Mean Corpuscular Hemoglobin 28.8 pg (28.0-33.3); Mean Corpuscular Volume 91.3 fL (83.0-100.0); Mean Platelet Volume 10.5 fL (9.4-12.4); Monocytes % 5.8 %; Platelet Count 373 K/mcL (140-400); Red Blood Count 3.93 M/mcL (4.19-5.50); Red Cell Distribution Width 13.9 % (11.5-14.5); Segmented Neutrophils % 84.2 %; White Blood Count 16.6 K/mcL (4.3-11.1)
[2020-07-29 02:16] LABS: Alanine Aminotransferase 31 Units/L (7-52); Albumin 3.1 g/dL (3.5-5.7); Albumin/Globulin Ratio 0.8 (1.1-2.2); Alkaline Phosphatase 52 Units/L (34-104); Aspartate Amino Transferase 17 Units/L (13-39); BUN/Creatinine Ratio 42 (6-26); Bilirubin,Total 0.4 mg/dL (0.3-1.0); Blood Urea Nitrogen 45 mg/dL (8-23); C-Reactive Protein 12 mg/L (Less than 10); Calcium 9.6 mg/dL (8.6-10.3); Carbon Dioxide 29 mEq/L (23-29); Chloride 94 mEq/L (98-107); Globulin 3.8 g/dL (2.4-3.5); Glucose 280 mg/dL (70-105); Lactate Dehydrogenase 161 Units/L (140-271); Magnesium 2.2 mg/dL (1.6-2.6); Osmolality,Calculated 302 (280-300); Potassium 4.3 mEq/L (3.5-5.1); Sodium 135 mEq/L (136-145); Total Protein 6.9 g/dL (6.4-8.9); eGFR For African Americans > 60 (> 60); eGFR For Non-African Americans > 60 (> 60)
[2020-07-29 02:30] LABS: Ferritin 271 ng/mL (20-250)
[2020-07-29] MEDS: Ipratropium 1 PUFF INHALER IH SCH ×6 (04:07→23:35)
[2020-07-29] MEDS: Budesonide/Formoterol 160/4.5 1 PUFF INH IH SCH ×3 (07:59→22:44)
[2020-07-29] MEDS ORDERED: Metoprolol XL (24 HR) Succ 50 MG TAB.ER.24H PO SCH (09:00)
[2020-07-29] MEDS ORDERED: Furosemide 40 MG/4 ML VIAL IVP SCH (09:00)
[2020-07-29] MEDS: Saline Nasal Spray 44 ML BOTTLE NS SCH ×7 (09:48→21:40)
[2020-07-29] MEDS: Piperacillin/Tazobactam 3.375 GM in 0.9 % Sodium Chloride Mini Bag 100 ML IVPB SCH ×4 (09:48→23:51)
[2020-07-29] MEDS: Insulin LISPRO 300 UNITS/3 ML VIAL SUBQ SCH ×8 (09:48→20:22)
[2020-07-29] MEDS: Aspirin Enteric Coated 81 MG Tablet PO SCH (09:50)
[2020-07-29] MEDS: Folic Acid 1 MG TABLET PO SCH (09:50)
[2020-07-29] MEDS: Sennosides/Docusate Sodium TABLET PO SCH ×2 (09:50→20:20)
[2020-07-29] MEDS: *HR* Enoxaparin 40 MG/0.4 ML SYRINGE SQ SCH ×2 (09:51→20:20)
[2020-07-29] MEDS: *HR* Acetylcysteine 20% 600 MG/3 ML ORAL SYRINGE PO SCH ×3 (09:51→20:22)
[2020-07-29] MEDS: Dexamethasone Sodium Phos/PF 10 MG/ML VIAL IVP SCH (09:51)
[2020-07-29] MEDS: Insulin DETEMIR 100 UNIT/ML X5UNITS SUBQ SCH ×2 (09:52→20:22)
[2020-07-29] MEDS: lisinopriL 20 MG TABLET PO SCH (09:55)
[2020-07-29] MEDS: Multivit/Ca/Min/Fe/FA 1 TAB TABLET PO SCH (10:26)
[2020-07-29] MEDS: polyethylene glycoL 3350 17 GM POWD.PACK PO SCH ×2 (10:26→20:21)
[2020-07-29] MEDS ORDERED: Naloxone 0.4 MG/ML INJ IVP PRN (21:36)
[2020-07-29] MEDS ORDERED: Benzonatate 100 MG CAPSULE PO PRN (21:36)
[2020-07-29] MEDS ORDERED: *HR* Dextrose 50 % in Water (Vial) 50 ML VIAL IVP PRN (21:36)
[2020-07-29] MEDS ORDERED: Ondansetron 4 MG/2 ML VIAL IVP PRN (21:36)
[2020-07-29] MEDS ORDERED: Acetaminophen 325 MG TABLET PO PRN (21:36)
[2020-07-29] MEDS ORDERED: Dextrose Gel 15 GM/37.5 ML TUBE PO PRN ×2 (21:36)
[2020-07-29] MEDS ORDERED: Perflutren Lipid Microsphere 1.3 ML in 0.9 % Sodium Chloride 8.7 ML IVP PRN (21:36)
[2020-07-29] MEDS ORDERED: D5% in Water 1,000 ML IVC PRN (21:36)
[2020-07-29] MEDS ORDERED: traZODone 50 MG TABLET PO PRN (21:36)
[2020-07-30] MEDS: Ipratropium 1 PUFF INHALER IH SCH ×3 (03:45→11:13)
[2020-07-30] MEDS ORDERED: Insulin LISPRO 300 UNITS/3 ML VIAL SUBQ SCH ×3 (07:30→21:00)
[2020-07-30] MEDS: Budesonide/Formoterol 160/4.5 1 PUFF INH IH SCH (07:41)
[2020-07-30] MEDS ORDERED: Sennosides/Docusate Sodium TABLET PO SCH (09:00)
[2020-07-30] MEDS ORDERED: Dexamethasone Sodium Phos/PF 10 MG/ML VIAL IVP SCH ×2 (09:00)
[2020-07-30] MEDS ORDERED: *HR* Enoxaparin 40 MG/0.4 ML SYRINGE SQ SCH (09:00)
[2020-07-30] MEDS ORDERED: Multivit/Ca/Min/Fe/FA 1 TAB TABLET PO SCH (09:00)
[2020-07-30] MEDS ORDERED: Furosemide 40 MG TABLET PO SCH ×2 (09:00)
[2020-07-30] MEDS ORDERED: *HR* Acetylcysteine 20% 600 MG/3 ML ORAL SYRINGE PO SCH (09:00)
[2020-07-30] MEDS ORDERED: Folic Acid 1 MG TABLET PO SCH (09:00)
[2020-07-30] MEDS ORDERED: Metoprolol XL (24 HR) Succ 50 MG TAB.ER.24H PO SCH (09:00)
[2020-07-30] MEDS ORDERED: lisinopriL 20 MG TABLET PO SCH (09:00)
[2020-07-30] MEDS ORDERED: Aspirin Enteric Coated 81 MG Tablet PO SCH (09:00)
[2020-07-30] MEDS ORDERED: polyethylene glycoL 3350 17 GM POWD.PACK PO SCH (09:00)
[2020-07-30] MEDS ORDERED: Insulin DETEMIR 100 UNIT/ML X5UNITS SUBQ SCH (09:00)
[2020-07-30] MEDS: Piperacillin/Tazobactam 3.375 GM in 0.9 % Sodium Chloride Mini Bag 100 ML IVPB SCH (09:24)
[2020-07-30 11:13] VITALS: BP 128/75
== END 2020-07-30 15:10 | disposition home or self-care (01) | DRG 177 ==
LOC: EMEROOARM 21:43 → CDU 21:43 → SUATTDRO 07-23 01:29 → CDU 07-23 02:15 → 2NENU 07-23 22:40 → SUATTDRO 07-24 13:04 → 2NENU 07-28 15:01 → 3BNU 07-29 21:29
PROVIDERS: ADMIT Student in an Organized Health Care Education/Training Program; ATTEND Internal Medicine

== ENCOUNTER 2021-12-18 09:37 | Inpatient (IN) ==
[2021-12-18 11:36] LABS: Basophils % 0.3 %; Eosinophils % 0.1 %; Hematocrit 31.2 % (37.5-50.1); Hemoglobin 9.6 g/dL (12.9-16.9); Immature Granulocytes % 1.2 % (0-4); Lymphocytes # 0.7 K/mcL (0.6-4.6); Lymphocytes % 7.3 %; Mean Corpuscular HGB Conc 30.8 g/dL (31.6-35.5); Mean Corpuscular Hemoglobin 30.2 pg (28.0-33.3); Mean Corpuscular Volume 98.1 fL (83.0-100.0); Neutrophils # 7.9 K/mcL (1.6-8.9); Platelet Count 270 K/mcL (140-400); Red Blood Count 3.18 M/mcL (4.19-5.50); Red Cell Distribution Width 16.6 % (11.5-14.5); Segmented Neutrophils % 81.1 %; White Blood Count 9.7 K/mcL (4.3-11.1)
[2021-12-18 11:58] LABS: Alanine Aminotransferase 11 Units/L (7-52); Albumin 3.3 g/dL (3.5-5.7); Albumin/Globulin Ratio 0.8 (1.1-2.2); Alkaline Phosphatase 70 Units/L (34-104); Aspartate Amino Transferase 9 Units/L (13-39); BUN/Creatinine Ratio 18 (6-26); Bilirubin,Direct 0.2 mg/dL (0.0-0.2); Bilirubin,Indirect 0.3 mg/dL (0.0-1.0); Bilirubin,Total 0.5 mg/dL (0.3-1.0); Blood Urea Nitrogen 17 mg/dL (8-23); Calcium 9.6 mg/dL (8.6-10.3); Carbon Dioxide 27 mEq/L (23-29); Chloride 101 mEq/L (98-107); Globulin 3.9 g/dL (2.4-3.5); Glucose 333 mg/dL (70-105); Osmolality,Calculated 301 (280-300); Potassium 4.1 mEq/L (3.5-5.1); Sodium 138 mEq/L (136-145); Total Protein 7.2 g/dL (6.4-8.9); Troponin I < 0.03 ng/mL (< 0.04); eGFR For African Americans > 60 (> 60); eGFR For Non-African Americans > 60 (> 60)
[2021-12-18 15:32] LABS: Influenza A PCR Negative (Negative); Influenza B PCR Negative (Negative); Resp. Syncytial Virus PCR Negative (Negative)
[2021-12-18 16:04] LABS: SARS-CoV-2 by PCR (In House) Negative (Negative)
[2021-12-18] MEDS ORDERED: Furosemide 40 MG/4 ML VIAL IVP ONE (16:33)
[2021-12-18] MEDS ORDERED: Melatonin 3 MG TABLET PO PRN (17:09)
[2021-12-18] MEDS ORDERED: Naloxone 0.4 MG/ML INJ IVP PRN (17:09)
[2021-12-18] MEDS ORDERED: Acetaminophen 325 MG TABLET PO PRN (17:09)
[2021-12-18] MEDS ORDERED: Benzonatate 100 MG CAPSULE PO PRN (17:14)
[2021-12-18] MEDS ORDERED: methylPREDNISolone 125 MG/2 ML VIAL IVP ONE (17:14)
[2021-12-18] MEDS: Ipratropium/Albuterol Neb 3 ML IH SCH ×2 (17:57→22:04)
[2021-12-18 18:30] LABS: Magnesium 1.7 mg/dL (1.6-2.6); Phosphorous 2.4 mg/dL (2.7-4.5)
[2021-12-18] MEDS ORDERED: *HR* Dextrose 50 % in Water (Syg) 50 ML SYRINGE IVP PRN (19:48)
[2021-12-18] MEDS ORDERED: D5% in Water 1,000 ML IVC PRN (19:48)
[2021-12-18] MEDS ORDERED: Dextrose Gel 15 GM/37.5 ML TUBE PO PRN ×2 (19:48)
[2021-12-18] MEDS: Furosemide 20 MG/2 ML VIAL IVP SCH (20:10)
[2021-12-18] MEDS: MethylPREDNISolone 40 MG/ML VIAL IVP SCH (20:10)
[2021-12-18] MEDS: Budesonide/Formoterol 160/4.5 1 PUFF INH IH SCH (22:04)
[2021-12-19] MEDS: Insulin LISPRO 300 UNITS/3 ML VIAL SUBQ SCH ×5 (02:54→20:25)
[2021-12-19] MEDS: Ipratropium/Albuterol Neb 3 ML IH SCH ×4 (04:20→22:39)
[2021-12-19 04:51] LABS: Basophils % 0.2 %; Hematocrit 28.6 % (37.5-50.1); Immature Granulocytes % 1.1 % (0-4); Lymphocytes # 0.5 K/mcL (0.6-4.6); Lymphocytes % 4.9 %; Mean Corpuscular HGB Conc 31.5 g/dL (31.6-35.5); Mean Corpuscular Hemoglobin 30.8 pg (28.0-33.3); Mean Corpuscular Volume 97.9 fL (83.0-100.0); Mean Platelet Volume 10.4 fL (9.4-12.4); Monocytes # 0.2 K/mcL (0.0-1.3); Neutrophils # 9.6 K/mcL (1.6-8.9); Nucleated Red Blood Cells 0.2 /100 WBC (0); Platelet Count 264 K/mcL (140-400); Red Blood Count 2.92 M/mcL (4.19-5.50); Red Cell Distribution Width 16.3 % (11.5-14.5); Segmented Neutrophils % 91.8 %; White Blood Count 10.5 K/mcL (4.3-11.1)
[2021-12-19 05:08] LABS: BUN/Creatinine Ratio 22 (6-26); Blood Urea Nitrogen 22 mg/dL (8-23); Calcium 9.4 mg/dL (8.6-10.3); Carbon Dioxide 28 mEq/L (23-29); Chloride 99 mEq/L (98-107); Chol/HDL Ratio 2.4 (0-4.9); Cholesterol 80 mg/dL (< 200); Glucose 495 mg/dL (70-105); HDL Cholesterol 34 mg/dL (40-59); LDL Cholesterol,Calculated 37 mg/dL (< 100); Osmolality,Calculated 303 (280-300); Potassium 4.3 mEq/L (3.5-5.1); Sodium 134 mEq/L (136-145); Triglycerides 43 mg/dL (< 150); eGFR For African Americans > 60 (> 60); eGFR For Non-African Americans > 60 (> 60)
[2021-12-19] MEDS: MethylPREDNISolone 40 MG/ML VIAL IVP SCH ×2 (05:39→16:40)
[2021-12-19] MEDS: *HR* Enoxaparin 40 MG/0.4 ML SYRINGE SQ SCH (05:40)
[2021-12-19] MEDS ORDERED: Furosemide 20 MG/2 ML VIAL IVP SCH (07:00)
[2021-12-19] MEDS ORDERED: Insulin DETEMIR 100 UNIT/ML X5UNITS SUBQ SCH ×2 (07:00→21:00)
[2021-12-19] MEDS: Furosemide 20 MG/2 ML VIAL IVP SCH ×2 (07:58→16:40)
[2021-12-19] MEDS: Aspirin Enteric Coated 81 MG Tablet PO SCH (07:58)
[2021-12-19] MEDS: Metoprolol XL (24 HR) Succ 25 MG TAB.ER.24H PO SCH (07:58)
[2021-12-19] MEDS: Folic Acid 1 MG TABLET PO SCH (07:59)
[2021-12-19] MEDS ORDERED: lisinopriL 10 MG TABLET PO SCH (09:00)
[2021-12-19] MEDS: Budesonide/Formoterol 160/4.5 1 PUFF INH IH SCH ×2 (10:06→22:38)
[2021-12-19] MEDS ORDERED: MethylPREDNISolone 40 MG/ML VIAL IVP SCH (18:00)
[2021-12-20 01:38] LABS: BUN/Creatinine Ratio 33 (6-26); Blood Urea Nitrogen 34 mg/dL (8-23); Calcium 9.4 mg/dL (8.6-10.3); Carbon Dioxide 28 mEq/L (23-29); Chloride 99 mEq/L (98-107); Glucose 365 mg/dL (70-105); Magnesium 2.1 mg/dL (1.6-2.6); Osmolality,Calculated 304 (280-300); Phosphorous 2.8 mg/dL (2.7-4.5); Potassium 4.6 mEq/L (3.5-5.1); Sodium 136 mEq/L (136-145); eGFR For African Americans > 60 (> 60); eGFR For Non-African Americans > 60 (> 60)
[2021-12-20 01:59] LABS: Basophils % 0.2 %; Hematocrit 28.5 % (37.5-50.1); Immature Granulocytes % 1.2 % (0-4); Lymphocytes # 0.7 K/mcL (0.6-4.6); Lymphocytes % 4.7 %; Mean Corpuscular HGB Conc 31.6 g/dL (31.6-35.5); Mean Corpuscular Hemoglobin 30.3 pg (28.0-33.3); Mean Platelet Volume 10.7 fL (9.4-12.4); Monocytes # 0.9 K/mcL (0.0-1.3); Monocytes % 6.2 %; Neutrophils # 12.4 K/mcL (1.6-8.9); Nucleated Red Blood Cells 0.2 /100 WBC (0); Platelet Count 263 K/mcL (140-400); Red Blood Count 2.97 M/mcL (4.19-5.50); Red Cell Distribution Width 16.5 % (11.5-14.5); Segmented Neutrophils % 87.7 %; White Blood Count 14.1 K/mcL (4.3-11.1)
[2021-12-20 02:29] LABS: Platelet Estimate Normal (Normal)
[2021-12-20] MEDS: Ipratropium/Albuterol Neb 3 ML IH SCH ×4 (04:06→22:42)
[2021-12-20] MEDS: *HR* Enoxaparin 40 MG/0.4 ML SYRINGE SQ SCH (05:49)
[2021-12-20] MEDS: MethylPREDNISolone 40 MG/ML VIAL IVP SCH (05:50)
[2021-12-20] MEDS ORDERED: Insulin DETEMIR 100 UNIT/ML X5UNITS SUBQ SCH (09:00)
[2021-12-20] MEDS: Metoprolol XL (24 HR) Succ 25 MG TAB.ER.24H PO SCH (09:14)
[2021-12-20] MEDS: Folic Acid 1 MG TABLET PO SCH (09:14)
[2021-12-20] MEDS: Aspirin Enteric Coated 81 MG Tablet PO SCH (09:14)
[2021-12-20] MEDS: Insulin LISPRO 300 UNITS/3 ML VIAL SUBQ SCH ×3 (09:16→20:32)
[2021-12-20] MEDS: Budesonide/Formoterol 160/4.5 1 PUFF INH IH SCH ×2 (09:37→22:42)
[2021-12-20] MEDS ORDERED: Insulin LISPRO 300 UNITS/3 ML VIAL SUBQ SCH (16:30)
[2021-12-20] MEDS ORDERED: Insulin DETEMIR 100 UNIT/ML X5UNITS SUBQ ONE (17:13)
[2021-12-20] MEDS: Furosemide 40 MG TABLET PO SCH (17:55)
[2021-12-21] MEDS: Ipratropium/Albuterol Neb 3 ML IH SCH ×4 (04:16→22:05)
[2021-12-21 04:35] LABS: Basophils % 0.3 %; Eosinophils % 0.2 %; Hematocrit 29.4 % (37.5-50.1); Lymphocytes # 2.1 K/mcL (0.6-4.6); Lymphocytes % 16.4 %; Mean Corpuscular HGB Conc 30.6 g/dL (31.6-35.5); Mean Corpuscular Hemoglobin 29.5 pg (28.0-33.3); Mean Corpuscular Volume 96.4 fL (83.0-100.0); Mean Platelet Volume 10.2 fL (9.4-12.4); Monocytes # 1.1 K/mcL (0.0-1.3); Monocytes % 8.4 %; Neutrophils # 9.3 K/mcL (1.6-8.9); Nucleated Red Blood Cells 0.3 /100 WBC (0); Platelet Count 319 K/mcL (140-400); Red Blood Count 3.05 M/mcL (4.19-5.50); Red Cell Distribution Width 16.5 % (11.5-14.5); Segmented Neutrophils % 72.7 %; White Blood Count 12.9 K/mcL (4.3-11.1)
[2021-12-21 04:54] LABS: BUN/Creatinine Ratio 31 (6-26); Blood Urea Nitrogen 34 mg/dL (8-23); Calcium 9.2 mg/dL (8.6-10.3); Carbon Dioxide 35 mEq/L (23-29); Chloride 100 mEq/L (98-107); Glucose 173 mg/dL (70-105); Osmolality,Calculated 306 (280-300); Potassium 3.8 mEq/L (3.5-5.1); Sodium 142 mEq/L (136-145); eGFR For African Americans > 60 (> 60); eGFR For Non-African Americans > 60 (> 60)
[2021-12-21] MEDS: *HR* Enoxaparin 40 MG/0.4 ML SYRINGE SQ SCH (05:43)
[2021-12-21] MEDS: predniSONE 20 MG TABLET PO SCH (08:49)
[2021-12-21] MEDS: Folic Acid 1 MG TABLET PO SCH (08:50)
[2021-12-21] MEDS: Metoprolol XL (24 HR) Succ 25 MG TAB.ER.24H PO SCH (08:50)
[2021-12-21] MEDS: Furosemide 40 MG TABLET PO SCH ×2 (08:50→16:19)
[2021-12-21] MEDS: Insulin LISPRO 300 UNITS/3 ML VIAL SUBQ SCH ×4 (08:50→20:40)
[2021-12-21] MEDS: Aspirin Enteric Coated 81 MG Tablet PO SCH (08:50)
[2021-12-21] MEDS: Budesonide/Formoterol 160/4.5 1 PUFF INH IH SCH ×2 (09:46→22:05)
[2021-12-21] MEDS ORDERED: *HR* Metoprolol 5 MG/5 ML VIAL IVP ONE (11:52)
[2021-12-21] MEDS: DilTIAZem 50 MG/50 ML IV.SOLN IVC SCH ×2 (12:56→20:42)
[2021-12-21] MEDS ORDERED: Perflutren Lipid Microsphere 1.3 ML in 0.9 % Sodium Chloride 8.7 ML IVP PRN (13:31)
[2021-12-21] MEDS: *HR* Enoxaparin 120 MG/0.8 ML SYRINGE SQ SCH (16:44)
[2021-12-22] MEDS: Ipratropium/Albuterol Neb 3 ML IH SCH ×4 (04:01→22:18)
[2021-12-22] MEDS: *HR* Enoxaparin 120 MG/0.8 ML SYRINGE SQ SCH ×2 (06:25→17:03)
[2021-12-22] MEDS ORDERED: Furosemide 40 MG/4 ML VIAL IVP ONE (07:30)
[2021-12-22] MEDS: Insulin LISPRO 300 UNITS/3 ML VIAL SUBQ SCH ×4 (07:49→21:21)
[2021-12-22] MEDS: predniSONE 20 MG TABLET PO SCH (07:50)
[2021-12-22] MEDS: Aspirin Enteric Coated 81 MG Tablet PO SCH (07:50)
[2021-12-22] MEDS: Metoprolol XL (24 HR) Succ 25 MG TAB.ER.24H PO SCH (07:50)
[2021-12-22] MEDS: Folic Acid 1 MG TABLET PO SCH (07:50)
[2021-12-22] MEDS ORDERED: DilTIAZem CD (24hr) 120 MG CAP.ER.24H PO SCH (08:00)
[2021-12-22 08:12] LABS: Basophils # 0.1 K/mcL (0.0-0.2); Basophils % 0.5 %; Eosinophils % 0.2 %; Hematocrit 32.6 % (37.5-50.1); Immature Granulocytes % 2.3 % (0-4); Lymphocytes # 2.1 K/mcL (0.6-4.6); Lymphocytes % 18.5 %; Mean Corpuscular HGB Conc 30.7 g/dL (31.6-35.5); Mean Corpuscular Hemoglobin 29.7 pg (28.0-33.3); Mean Corpuscular Volume 96.7 fL (83.0-100.0); Mean Platelet Volume 10.9 fL (9.4-12.4); Monocytes # 0.9 K/mcL (0.0-1.3); Monocytes % 7.4 %; Neutrophils # 8.2 K/mcL (1.6-8.9); Nucleated Red Blood Cells 0.6 /100 WBC (0); Platelet Count 299 K/mcL (140-400); Red Blood Count 3.37 M/mcL (4.19-5.50); Red Cell Distribution Width 16.3 % (11.5-14.5); Segmented Neutrophils % 71.1 %; White Blood Count 11.6 K/mcL (4.3-11.1)
[2021-12-22] MEDS: DilTIAZem CD (24hr) 120 MG CAP.ER.24H PO ONE ×2 (08:39→10:06)
[2021-12-22 08:50] LABS: BUN/Creatinine Ratio 28 (6-26); Blood Urea Nitrogen 27 mg/dL (8-23); Calcium 9.3 mg/dL (8.6-10.3); Carbon Dioxide 33 mEq/L (23-29); Chloride 96 mEq/L (98-107); Glucose 318 mg/dL (70-105); Osmolality,Calculated 301 (280-300); Potassium 3.6 mEq/L (3.5-5.1); Sodium 137 mEq/L (136-145); eGFR For African Americans > 60 (> 60); eGFR For Non-African Americans > 60 (> 60)
[2021-12-22] MEDS ORDERED: lisinopriL 5 MG TABLET PO SCH (09:00)
[2021-12-22] MEDS: Budesonide/Formoterol 160/4.5 1 PUFF INH IH SCH ×2 (09:35→22:18)
[2021-12-22 10:58] LABS: Magnesium 1.9 mg/dL (1.6-2.6); Phosphorous 3.3 mg/dL (2.7-4.5)
[2021-12-22 11:11] LABS: Thyroid Stimulating Hormone 2.696 mcIU/mL (0.340-5.600)
[2021-12-22] MEDS: DilTIAZem 50 MG/50 ML IV.SOLN IVC SCH (12:30)
[2021-12-22] MEDS ORDERED: Insulin DETEMIR 100 UNIT/ML X5UNITS SUBQ ONE (13:14)
[2021-12-22] MEDS ORDERED: Warfarin perPT PO PRN (18:00)
[2021-12-22] MEDS ORDERED: *HR* Warfarin 5 MG TABLET PO ONE (18:00)
[2021-12-23] MEDS: Ipratropium/Albuterol Neb 3 ML IH SCH (04:22)
[2021-12-23] MEDS: *HR* Enoxaparin 120 MG/0.8 ML SYRINGE SQ SCH ×2 (05:17→16:47)
[2021-12-23 05:38] LABS: Basophils % 0.3 %; Eosinophils % 0.3 %; Hematocrit 31.9 % (37.5-50.1); Hemoglobin 9.9 g/dL (12.9-16.9); Immature Granulocytes % 3.3 % (0-4); Lymphocytes # 2.2 K/mcL (0.6-4.6); Lymphocytes % 18.9 %; Mean Corpuscular Hemoglobin 29.6 pg (28.0-33.3); Mean Corpuscular Volume 95.2 fL (83.0-100.0); Mean Platelet Volume 10.3 fL (9.4-12.4); Monocytes # 0.8 K/mcL (0.0-1.3); Monocytes % 7.2 %; Nucleated Red Blood Cells 0.4 /100 WBC (0); Platelet Count 341 K/mcL (140-400); Red Blood Count 3.35 M/mcL (4.19-5.50); Red Cell Distribution Width 16.4 % (11.5-14.5); White Blood Count 11.5 K/mcL (4.3-11.1)
[2021-12-23 05:49] LABS: INR 1.1; Prothrombin Time 11.9 Seconds (9.4-12.1)
[2021-12-23 05:58] LABS: BUN/Creatinine Ratio 26 (6-26); Blood Urea Nitrogen 27 mg/dL (8-23); Calcium 9.2 mg/dL (8.6-10.3); Carbon Dioxide 33 mEq/L (23-29); Chloride 95 mEq/L (98-107); Glucose 311 mg/dL (70-105); Osmolality,Calculated 303 (280-300); Phosphorous 3.4 mg/dL (2.7-4.5); Potassium 3.7 mEq/L (3.5-5.1); Sodium 138 mEq/L (136-145); eGFR For African Americans > 60 (> 60); eGFR For Non-African Americans > 60 (> 60)
[2021-12-23] MEDS ORDERED: Insulin DETEMIR 100 UNIT/ML X5UNITS SUBQ ONE ×3 (07:44→21:00)
[2021-12-23] MEDS: Insulin LISPRO 300 UNITS/3 ML VIAL SUBQ SCH ×4 (07:45→21:07)
[2021-12-23] MEDS: Folic Acid 1 MG TABLET PO SCH (07:45)
[2021-12-23] MEDS ORDERED: Furosemide 40 MG/4 ML VIAL IVP ONE (07:45)
[2021-12-23] MEDS ORDERED: DilTIAZem CD (24hr) 240 MG CAP.ER.24H PO SCH (09:00)
[2021-12-23] MEDS ORDERED: DilTIAZem CD (24hr) 120 MG CAP.ER.24H PO ONE (10:36)
[2021-12-23] MEDS: Budesonide/Formoterol 160/4.5 1 PUFF INH IH SCH ×2 (11:11→20:00)
[2021-12-23] MEDS ORDERED: Metoprolol XL (24 HR) Succ 25 MG TAB.ER.24H PO SCH (14:00)
[2021-12-23] MEDS ORDERED: Metoprolol XL (24 HR) Succ 50 MG TAB.ER.24H PO ONE (15:27)
[2021-12-23] MEDS: Tiotropium 10 INH DOSE IH SCH (15:48)
[2021-12-23 16:42] LABS: Estimated Average Glucose 206 mg/dl; Hemoglobin A1C 8.8 %
[2021-12-23] MEDS ORDERED: *HR* Warfarin 5 MG TABLET PO ONE (18:00)
[2021-12-24 06:13] LABS: Basophils # 0.1 K/mcL (0.0-0.2); Basophils % 0.5 %; Eosinophils # 0.3 K/mcL (0.0-0.6); Eosinophils % 2.9 %; Hematocrit 34.6 % (37.5-50.1); Hemoglobin 10.7 g/dL (12.9-16.9); Immature Granulocytes % 3.9 % (0-4); Lymphocytes # 1.9 K/mcL (0.6-4.6); Lymphocytes % 21.1 %; Mean Corpuscular HGB Conc 30.9 g/dL (31.6-35.5); Mean Corpuscular Hemoglobin 29.9 pg (28.0-33.3); Mean Corpuscular Volume 96.6 fL (83.0-100.0); Mean Platelet Volume 10.2 fL (9.4-12.4); Monocytes # 0.6 K/mcL (0.0-1.3); Neutrophils # 5.9 K/mcL (1.6-8.9); Nucleated Red Blood Cells 0.2 /100 WBC (0); Platelet Count 322 K/mcL (140-400); Red Blood Count 3.58 M/mcL (4.19-5.50); Red Cell Distribution Width 16.6 % (11.5-14.5); Segmented Neutrophils % 64.6 %; White Blood Count 9.1 K/mcL (4.3-11.1)
[2021-12-24 06:17] LABS: INR 1.1; Prothrombin Time 12.7 Seconds (9.4-12.1)
[2021-12-24] MEDS: *HR* Enoxaparin 120 MG/0.8 ML SYRINGE SQ SCH (06:17)
[2021-12-24 06:38] LABS: BUN/Creatinine Ratio 24 (6-26); Blood Urea Nitrogen 27 mg/dL (8-23); Calcium 9.3 mg/dL (8.6-10.3); Carbon Dioxide 35 mEq/L (23-29); Chloride 98 mEq/L (98-107); Glucose 256 mg/dL (70-105); Osmolality,Calculated 304 (280-300); Potassium 4.1 mEq/L (3.5-5.1); Sodium 140 mEq/L (136-145); eGFR For African Americans > 60 (> 60); eGFR For Non-African Americans > 60 (> 60)
[2021-12-24] MEDS: Budesonide/Formoterol 160/4.5 1 PUFF INH IH SCH (07:40)
[2021-12-24] MEDS: Tiotropium 10 INH DOSE IH SCH (07:41)
[2021-12-24] MEDS ORDERED: Metoprolol XL (24 HR) Succ 50 MG TAB.ER.24H PO SCH (09:00)
[2021-12-24] MEDS ORDERED: DilTIAZem CD (24hr) 180 MG CAP.ER.24H PO SCH (09:00)
[2021-12-24] MEDS ORDERED: Insulin DETEMIR 100 UNIT/ML X5UNITS SUBQ SCH (09:43)
[2021-12-24] MEDS ORDERED: Insulin LISPRO 300 UNITS/3 ML VIAL SUBQ SCH ×2 (09:44→11:30)
[2021-12-24] MEDS: Folic Acid 1 MG TABLET PO SCH (10:26)
[2021-12-24 12:06] VITALS: BP 135/72; PULSE 71; TEMP 97.4
[2021-12-24 13:52] VITALS: O2SAT 94
[2021-12-24] MEDS ORDERED: Insulin Human Regular 15 UNIT in 0.9 % Sodium Chloride 10 ML IV ONE (14:20)
[2021-12-24] MEDS ORDERED: *HR* Warfarin 5 MG TABLET PO ONE (18:00)
== END 2021-12-24 14:36 | disposition home or self-care (01) | DRG 291 ==
LOC: EMEROOARM 09:37 → 2ANU 09:37 → SUATTDRO 18:14 → 2ANU 18:48 → SUATTDRO 12-19 13:09
PROVIDERS: ADMIT Internal Medicine; ATTEND Internal Medicine

== ENCOUNTER 2022-01-03 15:38 | Inpatient (IN) ==
[~2022-01-03 15:38] MED LIST: *HR* Atropine Sulfate 1 MG/10 ML SYRINGE IV ONE; *HR* Etomidate 40 MG/20 ML VIAL IVP ONE; *HR* Midazolam HCl 5 MG/5 ML VIAL IVP ONE; *HR* Rocuronium Bromide 50 MG/5 ML VIAL IVP ONE
[2022-01-03 15:59] LABS: Eosinophils % 0.1 %; Hemoglobin 9.9 g/dL (12.9-16.9); Mean Corpuscular Hemoglobin 30.2 pg (28.0-33.3); Red Blood Count 3.28 M/mcL (4.19-5.50); Red Cell Distribution Width 17.1 % (11.5-14.5)
[2022-01-03 16:00] LABS: Basophils % 0.1 %; Hematocrit 34.8 % (37.5-50.1); Immature Granulocytes % 0.7 % (0-4); Lymphocytes # 1.5 K/mcL (0.6-4.6); Lymphocytes % 9.1 %; Mean Corpuscular HGB Conc 28.4 g/dL (31.6-35.5); Mean Corpuscular Volume 106.1 fL (83.0-100.0); Mean Platelet Volume 11.4 fL (9.4-12.4); Monocytes # 0.6 K/mcL (0.0-1.3); Monocytes % 3.7 %; Platelet Count 214 K/mcL (140-400); Segmented Neutrophils % 86.3 %; White Blood Count 16.2 K/mcL (4.3-11.1)
[2022-01-03 16:06] LABS: INR 2.1; Prothrombin Time 23.6 Seconds (9.4-12.1)
[2022-01-03] MEDS: FentaNYL (PF) 1,000 MCG/100 ML IV.SOLN IVC SCH ×2 (16:06→23:25)
[2022-01-03 16:08] LABS: Activated Partial Thrombo Time 38.2 Seconds (26.0-36.0)
[2022-01-03 16:09] LABS: Hypersegmented Neutrophils Present (Not Present); Platelet Estimate Normal (Normal)
[2022-01-03 16:33] LABS: BUN/Creatinine Ratio 17 (6-26); Blood Urea Nitrogen 40 mg/dL (8-23); Calcium 8.7 mg/dL (8.6-10.3); Carbon Dioxide 16 mEq/L (23-29); Chloride 94 mEq/L (98-107); Glucose 800 mg/dL (70-105); Osmolality,Calculated 313 (280-300); Potassium 7.3 mEq/L (3.5-5.1); Sodium 127 mEq/L (136-145); Troponin I < 0.03 ng/mL (< 0.04); eGFR For African Americans 34 (> 60); eGFR For Non-African Americans 28 (> 60)
[2022-01-03] MEDS ORDERED: Albuterol 2.5 MG/3 ML NEBULIZER IH ONE (16:35)
[2022-01-03] MEDS ORDERED: Insulin Human Regular 10 UNIT in 0.9 % Sodium Chloride 10 ML IV ONE (16:35)
[2022-01-03] MEDS ORDERED: Cefepime HCl 2,000 MG in 0.9 % Sodium Chloride 10 ML IVP ONE (16:37)
[2022-01-03] MEDS ORDERED: Vancomycin 2,000 MG/520 ML IV.SOLN IVPB ONE (16:37)
[2022-01-03] MEDS ORDERED: Ringers Solution, Lactated 1,000 ML IVC ONE ×2 (16:38→20:22)
[2022-01-03 17:02] LABS: Alanine Aminotransferase 38 Units/L (7-52); Albumin 3.3 g/dL (3.5-5.7); Albumin/Globulin Ratio 1.2 (1.1-2.2); Alkaline Phosphatase 59 Units/L (34-104); Aspartate Amino Transferase 38 Units/L (13-39); Bilirubin,Direct 0.1 mg/dL (0.0-0.2); Bilirubin,Indirect 0.4 mg/dL (0.0-1.0); Bilirubin,Total 0.5 mg/dL (0.3-1.0); Globulin 2.8 g/dL (2.4-3.5); Total Protein 6.1 g/dL (6.4-8.9)
[2022-01-03] MEDS: Calcium Gluconate 1gm/50mL 1 GM/50 ML BAG IVPB SCH ×2 (17:19→17:42)
[2022-01-03 17:59] LABS: ABG Base Excess -3 mEq/L (-2 to 3); ABG HCO3 25 mEq/L (21-27); ABG Oxygen Saturation 99 % (95-98); ABG PCO2 51 mmHg (35-45); ABG PH 7.29 pH Units (7.32-7.45); ABG PO2 131 mmHg (85-104); ABG TCO2 26 mEq/L (20-26); Blood Gas Modality ASSIST CONTROL; Blood Gas VT 450 cc
[2022-01-03] MEDS ORDERED: *HR* Dextrose 50 % in Water (Syg) 50 ML SYRINGE IVP PRN ×2 (18:13→18:26)
[2022-01-03] MEDS ORDERED: Naloxone 0.4 MG/ML INJ IVP PRN (18:23)
[2022-01-03] MEDS ORDERED: Insulin Regular, Human 100 UNIT/ML IV PRN (18:26)
[2022-01-03] MEDS ORDERED: Artificial Tears SOLN 15 ML BOTTLE BOTH EYES PRN (18:33)
[2022-01-03] MEDS ORDERED: Calcium Gluconate 1gm/50mL 1 GM/50 ML BAG IVPB PRN (18:38)
[2022-01-03 19:38] LABS: Basophils % 0.1 %; Hematocrit 34.2 % (37.5-50.1); Hemoglobin 10.5 g/dL (12.9-16.9); Lymphocytes # 0.6 K/mcL (0.6-4.6); Lymphocytes % 3.4 %; Mean Corpuscular HGB Conc 30.7 g/dL (31.6-35.5); Mean Corpuscular Hemoglobin 30.9 pg (28.0-33.3); Mean Corpuscular Volume 100.6 fL (83.0-100.0); Mean Platelet Volume 11.7 fL (9.4-12.4); Monocytes # 0.8 K/mcL (0.0-1.3); Neutrophils # 14.8 K/mcL (1.6-8.9); Platelet Count 227 K/mcL (140-400); Red Cell Distribution Width 17.1 % (11.5-14.5); Segmented Neutrophils % 90.5 %; White Blood Count 16.3 K/mcL (4.3-11.1)
[2022-01-03 19:41] LABS: Bacteria,Urine Few per hpf (None-Few); Bilirubin,Urine Negative (Negative); Blood,Urine Small (Negative); Clarity,Urine Turbid (Clear); Color,Urine Light-Yellow (Yellow); Glucose,Urine (UA) >=1000 mg/dL (Normal); Hyaline Casts,Urine Moderate per lpf (None Seen); Ketones,Urine Negative (Negative); Leukocyte Esterase,Urine Negative (Negative); Mucus,Urine Few per lpf (None-Few); Nitrite,Urine Negative (Negative); PH,Urine 5.5 pH Units (5.0-8.0); Protein,Urine 50 mg/dL (Neg-Trace); Specific Gravity,Urine 1.019 (1.010-1.025); Squamous Epithelial Cell,Urine Few per hpf (None-Few); Urobilinogen,Urine Normal (Normal)
[2022-01-03 19:47] LABS: Estimated Average Glucose 235 mg/dl; Hemoglobin A1C 9.8 %
[2022-01-03 19:58] LABS: Albumin 3.6 g/dL (3.5-5.7); Albumin/Globulin Ratio 1.1 (1.1-2.2); Bilirubin,Total 0.7 mg/dL (0.3-1.0); Calcium 10.2 mg/dL (8.6-10.3); Globulin 3.3 g/dL (2.4-3.5); Phosphorous 4.5 mg/dL (2.7-4.5); Total Protein 6.9 g/dL (6.4-8.9)
[2022-01-03 20:04] LABS: Prothrombin Time 22.7 Seconds (9.4-12.1)
[2022-01-03 20:07] LABS: VBG Ionized Calcium 1.34 mmol/L (1.15-1.35)
[2022-01-03] MEDS: Artificial Tears SOLN 15 ML BOTTLE BOTH EYES SCH (22:29)
[2022-01-03] MEDS: Chlorhexidine Rinse 15 ML MOUTHWASH MM SCH (22:29)
[2022-01-04] MEDS: Artificial Tears SOLN 15 ML BOTTLE BOTH EYES SCH ×6 (00:21→21:35)
[2022-01-04] MEDS: Cefepime HCl 2,000 MG in 0.9 % Sodium Chloride 10 ML IVP SCH ×2 (00:24→08:28)
[2022-01-04 03:12] LABS: VBG Ionized Calcium 1.36 mmol/L (1.15-1.35)
[2022-01-04 03:14] LABS: Hematocrit 31.4 % (37.5-50.1); Hemoglobin 9.8 g/dL (12.9-16.9); Mean Corpuscular HGB Conc 31.2 g/dL (31.6-35.5); Mean Corpuscular Hemoglobin 30.6 pg (28.0-33.3); Mean Corpuscular Volume 98.1 fL (83.0-100.0); Mean Platelet Volume 11.3 fL (9.4-12.4); Platelet Count 207 K/mcL (140-400); White Blood Count 12.3 K/mcL (4.3-11.1)
[2022-01-04 03:30] LABS: Albumin 3.1 g/dL (3.5-5.7); Bilirubin,Total 0.3 mg/dL (0.3-1.0); Calcium 9.7 mg/dL (8.6-10.3); Magnesium 1.9 mg/dL (1.6-2.6); Phosphorous 4.5 mg/dL (2.7-4.5); Potassium 4.6 mEq/L (3.5-5.1); Total Protein 6.1 g/dL (6.4-8.9)
[2022-01-04 03:33] LABS: Prothrombin Time 21.7 Seconds (9.4-12.1)
[2022-01-04 04:48] LABS: ABG Base Excess 2 mEq/L (-2 to 3); ABG HCO3 27 mEq/L (21-27); ABG Oxygen Saturation 93 % (95-98); ABG PCO2 43 mmHg (35-45); ABG PH 7.41 pH Units (7.32-7.45); ABG PO2 68 mmHg (85-104); ABG TCO2 28 mEq/L (20-26); Blood Gas VT 450 cc
[2022-01-04] MEDS: FentaNYL (PF) 1,000 MCG/100 ML IV.SOLN IVC SCH (05:52)
[2022-01-04] MEDS: Chlorhexidine Rinse 15 ML MOUTHWASH MM SCH ×2 (08:28→21:35)
[2022-01-04] MEDS ORDERED: Perflutren Lipid Microsphere 1.3 ML in 0.9 % Sodium Chloride 8.7 ML IVP PRN (08:53)
[2022-01-04] MEDS ORDERED: D5% in Water 1,000 ML IVC PRN (12:43)
[2022-01-04] MEDS ORDERED: Dextrose Gel 15 GM/37.5 ML TUBE PO PRN ×2 (12:43)
[2022-01-04] MEDS: Insulin DETEMIR 100 UNIT/ML X5UNITS SUBQ SCH ×2 (13:40→21:37)
[2022-01-04] MEDS: Insulin LISPRO 300 UNITS/3 ML VIAL SUBQ SCH ×2 (14:11→16:32)
[2022-01-04] MEDS: Piperacillin/Tazobactam 3.375 GM in 0.9 % Sodium Chloride Mini Bag 100 ML IVPB SCH (16:24)
[2022-01-04] MEDS ORDERED: Insulin LISPRO 300 UNITS/3 ML VIAL SUBQ SCH (21:00)
[2022-01-05 01:49] LABS: VBG Ionized Calcium 1.29 mmol/L (1.15-1.35)
[2022-01-05 02:01] LABS: Hematocrit 32.3 % (37.5-50.1); Mean Corpuscular Hemoglobin 30.3 pg (28.0-33.3); Mean Corpuscular Volume 97.9 fL (83.0-100.0); Mean Platelet Volume 11.6 fL (9.4-12.4); Platelet Count 200 K/mcL (140-400); Red Cell Distribution Width 17.3 % (11.5-14.5)
[2022-01-05 02:07] LABS: Albumin 3.3 g/dL (3.5-5.7); Albumin/Globulin Ratio 1.1 (1.1-2.2); Bilirubin,Total 0.3 mg/dL (0.3-1.0); Calcium 9.3 mg/dL (8.6-10.3); Globulin 3.1 g/dL (2.4-3.5); Magnesium 1.9 mg/dL (1.6-2.6); Phosphorous 3.8 mg/dL (2.7-4.5); Total Protein 6.4 g/dL (6.4-8.9)
[2022-01-05 02:09] LABS: INR 1.5; Prothrombin Time 16.4 Seconds (9.4-12.1)
[2022-01-05] MEDS ORDERED: Piperacillin/Tazobactam 3.375 GM VIAL ONE (02:25)
[2022-01-05] MEDS: Piperacillin/Tazobactam 3.375 GM in 0.9 % Sodium Chloride Mini Bag 100 ML IVPB SCH ×3 (02:33→17:32)
[2022-01-05] MEDS: Insulin LISPRO 300 UNITS/3 ML VIAL SUBQ SCH ×4 (08:32→20:04)
[2022-01-05] MEDS ORDERED: Dextrose Gel 15 GM/37.5 ML TUBE PO PRN ×2 (10:27)
[2022-01-05] MEDS ORDERED: Perflutren Lipid Microsphere 1.3 ML in 0.9 % Sodium Chloride 8.7 ML IVP PRN (10:27)
[2022-01-05] MEDS ORDERED: D5% in Water 1,000 ML IVC PRN (10:27)
[2022-01-05] MEDS ORDERED: Calcium Gluconate 1gm/50mL 1 GM/50 ML BAG IVPB PRN (10:27)
[2022-01-05] MEDS ORDERED: Artificial Tears SOLN 15 ML BOTTLE BOTH EYES PRN (10:27)
[2022-01-05] MEDS ORDERED: Naloxone 0.4 MG/ML INJ IVP PRN (10:27)
[2022-01-05] MEDS: Metoprolol XL (24 HR) Succ 25 MG TAB.ER.24H PO SCH (14:30)
[2022-01-05] MEDS ORDERED: Insulin LISPRO 300 UNITS/3 ML VIAL SUBQ SCH (17:00)
[2022-01-05] MEDS ORDERED: *HR* Warfarin 5 MG TABLET PO SCH (18:00)
[2022-01-05] MEDS ORDERED: Warfarin perPT PO PRN (18:00)
[2022-01-05] MEDS ORDERED: *HR* Warfarin 5 MG TABLET PO ONE (18:00)
[2022-01-05] MEDS: Insulin DETEMIR 100 UNIT/ML X5UNITS SUBQ SCH (20:05)
[2022-01-05] MEDS ORDERED: Insulin DETEMIR 100 UNIT/ML X5UNITS SUBQ SCH (21:00)
[2022-01-06] MEDS: Piperacillin/Tazobactam 3.375 GM in 0.9 % Sodium Chloride Mini Bag 100 ML IVPB SCH ×2 (01:47→08:33)
[2022-01-06 05:06] LABS: Basophils % 0.3 %; Eosinophils # 0.2 K/mcL (0.0-0.6); Eosinophils % 2.4 %; Hematocrit 31.5 % (37.5-50.1); Immature Granulocytes % 0.3 % (0-4); Lymphocytes # 1.3 K/mcL (0.6-4.6); Lymphocytes % 17.3 %; Mean Corpuscular HGB Conc 31.7 g/dL (31.6-35.5); Mean Corpuscular Hemoglobin 31.2 pg (28.0-33.3); Mean Corpuscular Volume 98.1 fL (83.0-100.0); Mean Platelet Volume 11.3 fL (9.4-12.4); Monocytes # 0.2 K/mcL (0.0-1.3); Neutrophils # 5.8 K/mcL (1.6-8.9); Platelet Count 164 K/mcL (140-400); Red Blood Count 3.21 M/mcL (4.19-5.50); Red Cell Distribution Width 16.9 % (11.5-14.5); Segmented Neutrophils % 76.7 %; White Blood Count 7.6 K/mcL (4.3-11.1)
[2022-01-06 05:15] LABS: VBG Ionized Calcium 1.26 mmol/L (1.15-1.35)
[2022-01-06 05:21] LABS: INR 1.1; Prothrombin Time 12.7 Seconds (9.4-12.1)
[2022-01-06 05:25] LABS: Alanine Aminotransferase 44 Units/L (7-52); Albumin 3.1 g/dL (3.5-5.7); Albumin/Globulin Ratio 0.9 (1.1-2.2); Alkaline Phosphatase 61 Units/L (34-104); Aspartate Amino Transferase 21 Units/L (13-39); BUN/Creatinine Ratio 20 (6-26); Bilirubin,Total 0.6 mg/dL (0.3-1.0); Blood Urea Nitrogen 27 mg/dL (8-23); Calcium 9.1 mg/dL (8.6-10.3); Carbon Dioxide 28 mEq/L (23-29); Chloride 102 mEq/L (98-107); Globulin 3.3 g/dL (2.4-3.5); Glucose 235 mg/dL (70-105); Magnesium 1.6 mg/dL (1.6-2.6); Osmolality,Calculated 295 (280-300); Potassium 4.9 mEq/L (3.5-5.1); Sodium 136 mEq/L (136-145); Total Protein 6.4 g/dL (6.4-8.9); eGFR For African Americans > 60 (> 60); eGFR For Non-African Americans 52 (> 60)
[2022-01-06 05:26] LABS: Albumin 3.1 g/dL (3.5-5.7); Albumin/Globulin Ratio 0.9 (1.1-2.2); Bilirubin,Direct 0.1 mg/dL (0.0-0.2); Bilirubin,Indirect 0.5 mg/dL (0.0-1.0); Bilirubin,Total 0.6 mg/dL (0.3-1.0); Globulin 3.3 g/dL (2.4-3.5); Phosphorous 2.8 mg/dL (2.7-4.5); Total Protein 6.4 g/dL (6.4-8.9)
[2022-01-06] MEDS: Metoprolol XL (24 HR) Succ 25 MG TAB.ER.24H PO SCH (08:32)
[2022-01-06] MEDS: Insulin LISPRO 300 UNITS/3 ML VIAL SUBQ SCH ×4 (08:33→20:32)
[2022-01-06] MEDS: Insulin DETEMIR 100 UNIT/ML X5UNITS SUBQ SCH ×2 (08:35→20:31)
[2022-01-06] MEDS ORDERED: *HR* Warfarin 7.5 MG TABLET PO ONE (18:00)
[2022-01-07 06:57] LABS: VBG Ionized Calcium 1.27 mmol/L (1.15-1.35)
[2022-01-07 07:03] LABS: Basophils % 0.3 %; Eosinophils # 0.2 K/mcL (0.0-0.6); Eosinophils % 3.5 %; Hematocrit 31.1 % (37.5-50.1); Hemoglobin 9.8 g/dL (12.9-16.9); Immature Granulocytes % 0.3 % (0-4); Lymphocytes # 1.1 K/mcL (0.6-4.6); Lymphocytes % 15.8 %; Mean Corpuscular HGB Conc 31.5 g/dL (31.6-35.5); Mean Corpuscular Hemoglobin 30.8 pg (28.0-33.3); Mean Corpuscular Volume 97.8 fL (83.0-100.0); Mean Platelet Volume 11.2 fL (9.4-12.4); Monocytes # 0.3 K/mcL (0.0-1.3); Monocytes % 4.4 %; Neutrophils # 5.1 K/mcL (1.6-8.9); Platelet Count 154 K/mcL (140-400); Red Blood Count 3.18 M/mcL (4.19-5.50); Red Cell Distribution Width 16.6 % (11.5-14.5); Segmented Neutrophils % 75.7 %; White Blood Count 6.8 K/mcL (4.3-11.1)
[2022-01-07 07:15] LABS: INR 1.2; Prothrombin Time 13.2 Seconds (9.4-12.1)
[2022-01-07 07:34] LABS: Alanine Aminotransferase 35 Units/L (7-52); Albumin 3.3 g/dL (3.5-5.7); Alkaline Phosphatase 64 Units/L (34-104); Aspartate Amino Transferase 17 Units/L (13-39); BUN/Creatinine Ratio 21 (6-26); Bilirubin,Direct 0.1 mg/dL (0.0-0.2); Bilirubin,Indirect 0.4 mg/dL (0.0-1.0); Bilirubin,Total 0.5 mg/dL (0.3-1.0); Blood Urea Nitrogen 20 mg/dL (8-23); Calcium 9.4 mg/dL (8.6-10.3); Carbon Dioxide 30 mEq/L (23-29); Chloride 100 mEq/L (98-107); Globulin 3.2 g/dL (2.4-3.5); Glucose 242 mg/dL (70-105); Magnesium 1.5 mg/dL (1.6-2.6); Osmolality,Calculated 293 (280-300); Phosphorous 2.5 mg/dL (2.7-4.5); Potassium 4.8 mEq/L (3.5-5.1); Sodium 136 mEq/L (136-145); Total Protein 6.5 g/dL (6.4-8.9); eGFR For African Americans > 60 (> 60); eGFR For Non-African Americans > 60 (> 60)
[2022-01-07] MEDS: Metoprolol XL (24 HR) Succ 25 MG TAB.ER.24H PO SCH (07:46)
[2022-01-07] MEDS: Insulin DETEMIR 100 UNIT/ML X5UNITS SUBQ SCH (07:47)
[2022-01-07] MEDS: Insulin LISPRO 300 UNITS/3 ML VIAL SUBQ SCH ×2 (07:47→12:13)
[2022-01-07 10:41] VITALS: O2SAT 95
[2022-01-07 12:10] VITALS: BP 162/94; TEMP 97.9
[2022-01-07 12:57] VITALS: PULSE 62
[2022-01-07] MEDS ORDERED: *HR* Warfarin 5 MG TABLET PO ONE (18:00)
== END 2022-01-07 16:40 | disposition home health service (06) | DRG 871 ==
LOC: EMEROOARM 15:38 → ICNU 15:38 → SUATTDRO 18:51 → ICNU 20:27 → 2NNU 01-06 17:39
PROVIDERS: ADMIT Internal Medicine; ATTEND Internal Medicine